=== PATIENT | male | born 1960 | race Caucasian/White ===

== ENCOUNTER → 2018-06-06 00:18 | Outpatient (CLI) | payer OTHER, SELFPAY ==
[2018-06-06 16:06] VITALS: BMI 31.4
[2018-06-07 00:39] LABS: Absolute Lymphocyte Count 2.97 X10^3/ul (0.83-4.51); Absolute Neutrophil Count 5.2 X10^3/uL (2.0-7.7); Basophil# 0.05 X10^3/uL; Basophil% 0.6 % (0-1); Eosinophil# 0.11 X10^3/uL; Eosinophils% 1.2 % (0-5); Hematocrit 50.5 % (40-54); Hemoglobin 16.8 g/dl (13.0-16.5); Lymphocyte # 2.97 X10^3/ul (4.0); Lymphocyte % 32.7 % (19-41); Mean Corp Hgb Conc 33.3 g/gl (32-36); Mean Corpuscular Hgb 29.3 pg (27.0-32.0); Mean Corpuscular Volume 88.1 fL (80-94); Mean Platelet Vol. 10.2 fl (6.2-12.0); Monocyte% 7.7 % (0-10); Neutrophil # 5.17 X10^3/uL (2.7-7.7); Platelet Count 216 K/mm3 (150-450); RBC Distribution Width CV 13.3 % (11.6-14.6); RBC Distribution Width SD 42.7 fl (35.1-43.9); Red Blood Count 5.73 M/mm3 (4.6-6.2); White Blood Count 9.1 K/mm3 (4.4-11.0)
[2018-06-07 00:47] LABS: POSITIVE COUNT NO; POSITIVE DIFFERENTIAL NO; POSITIVE MORPHOLOGY NO
[2018-06-07 00:50] LABS: ALB/GLOB Ratio 1.2 RATIO (0.9-2.4); AST(SGOT) 26 U/L (15-37); Alanine Aminotransfer ALT/SGPT 45 U/L (16-61); Albumin, Serum 4.3 g/dL (3.2-5.0); Alkaline Phosphatase 112 U/L (45-117); Anion Gap 9 (5-15); BUN 22 mg/dL (7-18); BUN/Creat Ratio 17.6 RATIO (10-20); Calcium,Total 9.1 mg/dL (8.5-10.1); Chloride 104 mmol/L (98-107); Cholesterol 192 mg/dL (200); Creatinine, Serum 1.25 mg/dL (0.70-1.30); EST Glomerular Filtration Rate 63 mL/min (>60); Est Glom Filt Rate - Afr Amer 76 mL/min (>60); Globulin 3.6 g/dL (2.2-4.2); Glucose 134 mg/dL (74-106); High Density Lipoprotein 43 mg/dL; Potassium 4.7 mmol/L (3.5-5.1); Protein, Total 7.9 g/dL (6.4-8.2); Sodium Level 135 mmol/L (136-145); Triglycerides 348 mg/dL; Very Low Density Lipoprotein 70 mg/dL (5-40)
--- OUTSIDE RECORDS SUMMARY | 2018-08-11 20:39 | XMS RPT_ITS ---
:1960 Author Organization [facility] Care Team Providers Name Role Phone Dina Townsend [employer] B[employer]NER MECHANIC-C Attending Unavailable Florian Vivas Primary Care Unavailable Dina Townsend [employer] B[employer]NER MECHANIC-C Referring Unavailable PROBLEMS PROBLEMS DATE TYPE CONDITION / CODE ATTENDING STATUS SOURCE 06/07/2018 Unknown I10 - Essential Kristian, Active [place] (primary) Dina OIL B[employer]NER MECHANIC-C Counts Include [facility] hypertension / Hospital I10(ICD-10) Repository 06/07/2018 Unknown E78.5 - Kristian, Active [place] Hyperlipidemia, Dina [employer]IL BURNER MECHANIC-C Counts Include [facility] unspecified / Hospital E78.5(ICD-10) Repository PROCEDURES PROCEDURES No Procedure Records FoundRESULTS RESULTS OFFICE VISIT Observed: 06/07/2018 Status: F Source: [place] 2:19 PM [facility] REPOSITORY [facility] [address], [place] [id number] OFFICE VISIT Date of Service: 06/06/18 MR#: [id number] Acct: [id number] Name: JORGE FUNES Rep #: [id number] : 1960 Provider: DEMOND Townsend Age/Sex: 57/M Location: [facility] [place] Status: Signed Intake Vital Signs06/06/18 Height 5 ft 7.5 in 06/06/18 Weight: 204 lb 06/06/18 Body Mass Index (BMI) 31.4 Intake Visit Reasons: RX REFILLS Allergies No Known Allergies Allergy (Unverified 06/06/18 16:03) Medications aspirin 81 mg tablet,delayed release 81 mg PO DAILY 06/06/18 [History Confirmed 06/06/18] canagliflozin 300 mg tablet 300 mg PO DAILY #90 tab 06/06/18 [Rx Confirmed 06/06/18] esomeprazole magnesium 40 mg capsule,delayed release 40 mg PO DAILY #90 cap 06/06/18 [Rx Confirmed 06/06/18] fluticasone 50 mcg/actuation nasal spray,suspension 1 spray INTRANASAL DAILY #18.2 g 06/06/18 [Rx Confirmed 06/06/18] lisinopril 20 mg tablet 20 mg PO DAILY #90 tab 06/06/18 [Rx Confirmed 06/06/18] metformin 1,000 mg tablet 1,000 mg PO BID #180 tab 06/06/18 [Rx Confirmed 06/06/18] naproxen 500 mg tablet 500 mg PO BID #180 tab 06/06/18 [Rx Confirmed 06/06/18] simvastatin 40 mg tablet 40 mg PO QHS #90 tab 06/06/18 [Rx Confirmed 06/06/18] PFSH Medical History DJD (Acute) Depression (Acute) Hyperlipidemia (Acute) Osteoarthritis (Acute) P U D (Acute) Psoriasis (Acute) Stroke (Acute) colonoscopy in 2015 neg (Acute) Hypertension (Chronic) Family History Other Bladder cancer Breast cancer Cancer Colon cancer Diabetes Hypertension Lung cancer Social History Smoking Status: Never smoker HPI HPI (General) HPI HPI: JORGE FUNES, is a 57 M who presents to the office today for medication refills. Feeling good no concerns ROS Const Constitutional: No anorexia, body ache, chills, excessive sweating, fatigue, fever(s), frequent falls, headache(s), decreased energy, malaise, night sweats, snoring, weakness, weight change, sleep problems, abnormal sleep pattern, change in appetite or other Eyes Eyes: No blurry vision, change in vision, double vision, discharge, dry eyes, bulging eyes, floaters, visual disturbances, eye pain, light sensitivity, spots in vision, tunnel vision or other ENT ENT: No headache(s), abnormal hearing, ear pain, ear discharge, ear pressure, hearing loss, tinnitus, dizziness/vertigo, balance problems, nosebleed/epistaxis, nasal congestion, nasal obstruction, nose pain, sinus pressure, sinus pain, nasal discharge, post nasal drip, facial pain, dental pain, dry mouth, difficulty swallowing, bad breath, hoarseness, lip swelling, mouth lesions, mouth pain, neck pain, sore throat, tongue swelling, throat swelling or other Resp Respiratory: No snoring, cough, change in phlegm color, chest congestion, excessive phlegm production, hemoptysis, pain on inspiration, shortness of breath, pain with cough, stridor, wheezing or other Cardio Cardiology: No excessive sweating, chest pain at rest, chest pain with exertion, leg pain with exertion, shortness of breath, dyspnea on exertion, generalized swelling, irregular heart rhythm, lightheadedness, orthopnea, radiating jaw, neck or arm pain, fast heart rate, slow heart rate, palpitations or other Gastro GI: No other, No Difficulty Swallowing, No abdominal pain, No belching, No bloating, No change in bowel habits, No change in stool character, No coffee ground emesis, No constipation, No cramping, No diarrhea, No heartburn, No feeling full early, No excessive flatus, No incontinent of stools, No Vomiting blood/hematemesis, No Blood in stool, No loose stools, No Black,tarry stools, No nausea/dyspepsia, No pain with swallowing, No vomiting, No hemorrhoids, No rectal pain Genitourinary: No urinary frequency, difficulty urinating, burning urination, painful urination, urinary urgency or blood in urine Musc Musculoskeletal: No neck pain, abnormal walking, joint pain, back pain, deformity, joint swelling, limited range of motion, loss of height, muscle cramps, muscle weakness, decreased muscle mass, body aches, numbness, radiating pain into limb, stiffness, tingling or other Skin Skin: No acne, hair loss, change in hair, nail changes, boil, change in skin color, dry skin, redness, excessive hair growth, yellowing of the skin, lesions, itching, rash, skin pain, skin ulcer, sores, skin swelling, wounds or other Breast Breast: No other Neuro Neurology: No frequent falls, headache(s), weakness, visual disturbances, abnormal hearing, abnormal walking, numbness, tingling, abnormal movements, abnormal speech, behavioral changes, confusion, unsteady gait/balance, dizziness, lack of coordination, loss of vision, memory loss, restless legs, fainting, tremor(s) or other Psych Psychiatric: No abnormal sleep pattern, No change in appetite, No behavioral changes, No confusion, No memory loss, No lack of enjoyment, No anxiety, No depression, No difficulty concentrating, No hopelessness, No irritability, No mood swings, No panic attacks, No paranoia, No Thoughts of harming yourself/Others, No hallucinations, No other Endo Endo: No excessive sweating, No fatigue, No other Aller/Imm Allergy/Immunologic: No lip swelling, tongue swelling, throat swelling, wheezing or itchy eyes Exam Const Constitutional: Yes cooperative, Yes healthy appearing Orientation: Yes alert, awake and oriented x3 HENMT Head: Yes normocephalic Ear: Yes hearing grossly normal bilaterally Neck Neck: normal visual inspection Thyroid: thyroid normal Eyes General: Yes appearance normal, both eyes and all related structures Chest Chest palpation AND inspection: Yes normal inspection of the chest Resp Effort AND Inspection: No stridor Auscultation: Yes clear to auscultation bilaterally Cardio Palpitation: Yes normal PMI Rate: Yes regular rate Rhythm: Yes regular rhythm GI Inspection: Yes normal to inspection Auscultation: Yes normal bowel sounds Rectal Exam: No hemorrhoids Musc Cervical Spine: Yes cervical ROM normal Thoracic/Lumbar Spine: Yes thoracic and lumbar spine normal to inspection Skin General: no rashes or lesions noted Lesions: Yes no lesions Extrem General: Yes normal to inspection Neuro General: Yes alert and oriented x3 Motor: No weakness Psych Appearance: Positive grossly normal Mood: Positive congruent mood Affect: Positive normal affect Results POC A1C POC A1C 8.2 % Last Edit by HERIBERTO Whitney on 06/06/18 16:22 Assessment AND Plan Problems 1. Mixed hyperlipidemia E78.2 2. Recurrent major depressive disorder, in full remission F33.42 3. Essential hypertension I10 4. Diabetes mellitus type 2, uncontrolled, without complications E11.65 Patient Instructions TAke the medications as prescribed follow up in 1 year Will call with the results of the labs drawn today Orders Orders: Medications New: Coding Level of Care Code Off vis,est,level 3 Diagnoses Mixed hyperlipidemia E78.2 Hyperlipidemia type: mixed hyperlipidemia Recurrent major depressive disorder, in full remission F33.42 Active/Remission status: in full remission Depression Type: major depressive disorder Major depression recurrence: recurrent Essential hypertension I10 Hypertension type: essential hypertension Diabetes mellitus type 2, uncontrolled, without complications E11.65 06/07/18 [id number] <Electronically signed by Dina REYESC> Date Dina Townsend [employer] BURNER MECHANIC-C CC: CBC W/DIFF, AUTOMATED Collected: 06/06/2018 Status: F Source: [place] 4:30 PM [facility] REPOSITORY TYPE CODE TESTS RESULT OUT OF RANGE REFERENCE UNITS LAB L100.1000 4.4-11.0 K/mm3 Normal WBC 9.1 LAB L100.1200 4.6-6.2 M/mm3 Normal RBC 5.73 LAB L100.1300 13.0-16.5 g/dl High HGB 16.8 LAB L100.1400 40-54 % Normal HCT 50.5 LAB L100.1500 80-94 fL Normal MCV 88.1 LAB L100.1600 27.0-32.0 pg Normal MCH 29.3 LAB L100.1700 32-36 g/gl Normal MCHC 33.3 LAB L100.1810 11.6-14.6 % Normal RDW CV 13.3 LAB L100.1820 35.1-43.9 fl Normal RDW SD 42.7 LAB L100.1900 150-450 K/mm3 Normal PLT 216 LAB L100.2000 6.2-12.0 fl Normal MPV 10.2 LAB L100.2100 47-70 % Normal NEUT% 57.0 LAB L100.2200 19-41 % Normal LY% 32.7 LAB L100.2300 0-10 % Normal MONO% 7.7 LAB L100.2400 0-5 % Normal EO% 1.2 LAB L100.2500 0-1 % Normal BASO% 0.6 LAB L100.2550 0.0-0.9 % Normal IM GRAN % 0.800 Result Comment: IG% - Immature Granulocytes (promyelocytes, myelocytes and metamyelocytes) > 1% indicates that a LEFT SHIFT is Present. LAB L100.2620 2.0-7.7 X10 3/uL Normal Absolute Neut 5.2 LAB L100.2720 0.83-4.51 X10 3/ul Normal Absolute Lymph 2.97 Performed By: #### L100.0100 #### [facility] [address] [place], [address] COMPREHENSIVE METABOLIC Collected: 06/06/2018 Status: F Source: [place]ANN 4:30 PM [facility] REPOSITORY TYPE CODE TESTS RESULT OUT OF RANGE REFERENCE UNITS LAB L501.0100 74-106 mg/dL High GLU 134 Result Comment: Fasting Glucose result greater than or equal to 126 mg/dL suggests DIABETES MELLITUS per A.D.A. criteria. Please note revised GLUCOSE reference range effective 2017. LAB L501.1000 7-18 mg/dL High BUN 22 LAB L501.1100 0.70-1.30 mg/dL Normal CREAT,SERUM 1.25 Result Comment: The validity of the calculated GFR AND GFRAA in patients over 70 years has not been determined. Clinical correlation is essential. LAB L501.1110 >60 mL/min Normal EST GFR 63 Result Comment: Non- GFR Calc LAB L501.1115 >60 mL/min Normal EST GFR - AA 76 Result Comment: GFR Calc LAB L501.1300 10-20 RATIO Normal BUN/CRE 17.6 LAB L501.1500 6.4-8.2 g/dL T Normal PROT 7.9 LAB L501.1800 3.2-5.0 g/dL Normal ALB 4.3 LAB L501.1950 2.2-4.2 g/dL Normal GLOB 3.6 LAB L501.2000 0.9-2.4 RATIO Normal A/G 1.2 LAB L501.2200 8.5-10.1 mg/dL CA Normal 9.1 LAB L501.4100 15-37 U/L Normal AST 26 LAB L501.4305 45-117 U/L Normal ALK P 112 LAB L501.4405 16-61 U/L Normal ALT 45 LAB L501.4600 0.20-1.00 mg/dL T Normal BILI 0.30 LAB L501.5300 136-145 mmol/L Low NA 135 LAB L501.5600 3.5-5.1 mmol/L K Normal 4.7 LAB L501.5900 98-107 mmol/L CL Normal 104 LAB L501.6100 21.0-32.0 mmol/L Normal CO2 22.0 LAB L501.6200 5-15 Normal GAP 9 Performed By: #### L500.4050, L500.4100 #### [facility] [address] [place], [address] LIPID PROFILE Collected: 06/06/2018 Status: F Source: [place] 4:30 PM [facility] REPOSITORY TYPE CODE TESTS RESULT OUT OF RANGE REFERENCE UNITS LAB L501.4900 200 mg/dL Normal CHOL 192 Result Comment: <200 mg/dL Desirable 200-240 mg/dL Borderline >240 mg/dL High Risk LAB L501.5000 mg/dL High TRIG 348 Result Comment: The drugs N-Acetylcysteine and Metamizole may falsely depress this assay. Serum Triglycerides Reference Interval Normal <150 mg/dL Borderline high 150 - 199 mg/dL High 200 - 499 mg/dL Very High > or = 500 mg/dL LAB L501.6400 mg/dL Normal HDL 43 Result Comment: The drugs N-Acetylcysteine and Metamizole may falsely depress this assay. Reference Range HDL <40 mg/dL Low HDL Cholesterol HDL >or= 60 mg/dL High HDL Cholesterol LAB L501.6500 0-130 mg/dL Normal LDL 79 LAB L501.6600 5-40 mg/dL High VLDL 70 Performed By: #### L500.4050, L500.4100 #### [facility] [address] [place], [address] ALLERGIES ALLERGIES DATE TYPE / CODE NAME / CODE REACTION SEVERITY SOURCE 06/06/2018 Drug No Known Unknown [facility] Allergy/4160 Allergies/F00 Hospital 72923(SNOMED [id number](RXNOR Repository CT) M) ENCOUNTERS ENCOUNTERS ADMIT/DISCHARGE ACCOUNT ADMITTING ENCOUNTER LOCATION SOURCE NUMBER CLASS 06/06/2018 [id number] Ambulatory [address] ing:LABSPEC Repository PAYERS PAYERS ENCOUNTER GUARANTOR PAYER SUBSCRIBER SOURCE 06/06/2018 PATEL A Primary PATEL A [place] [id number] Insurance:Winnie JAY: [facility] [place]: [id number] [id number] Repository [id number]: (330) Date:4627-21-05[phone] () [id number]: 06/06/2018 Secondary SOFI S [place] Insurance:[facility] ED: [place] [id number] Number: [id number] [facility] [id number] Repository Date: [address] [id number]: 06/06/2018 Tertiary NOT GIVENUNK [place] Insurance:SELF PAY [facility] Number: Effective Repository Date:2018-06-06
== END ==
PROVIDERS: Family Provider Family Medicine; PCP Family Medicine; Referring Provider Nurse Practitioner; Visit Provider Nurse Practitioner
DX: E11.65 Type 2 diabetes mellitus with hyperglycemia (principal); E78.5 Hyperlipidemia, unspecified; I10 Essential (primary) hypertension
CPT/HCPCS: 80053; 80061; 85025

== ENCOUNTER → 2019-06-06 21:40 | Outpatient (CLI) | payer OTHER, SELFPAY ==
[2019-06-06 17:30] VITALS: BMI 30.2
[2019-06-06 22:20] LABS: Absolute Neutrophil Count 4.7 X10^3/uL (2.0-7.7); Basophil# 0.08 X10^3/uL; Eosinophil# 0.14 X10^3/uL; Eosinophils% 1.7 % (0-5); Hematocrit 47.7 % (40-54); Hemoglobin 15.6 g/dL (13.0-16.5); Lymphocyte % 31.6 % (19-41); Mean Corp Hgb Conc 32.7 g/dL (32-36); Mean Corpuscular Volume 88.7 fL (80-94); Mean Platelet Vol. 10.1 fl (6.2-12.0); Monocyte# 0.62 X10^3/uL; Monocyte% 7.5 % (0-10); NRBC Flagged by Analyzer 0 % (0-5); Neutrophil # 4.74 X10^3/uL (2.7-7.7); Neutrophil % 57.5 % (47-70); Platelet Count 235 K/mm3 (150-450); RBC Distribution Width CV 13.5 % (11.6-14.6); RBC Distribution Width SD 43.4 fl (35.1-43.9); Red Blood Count 5.38 M/mm3 (4.6-6.2); White Blood Count 8.2 K/mm3 (4.4-11.0)
[2019-06-06 22:24] LABS: ALB/GLOB Ratio 1.4 RATIO (0.9-2.4); AST(SGOT) 19 U/L (15-37); Alanine Aminotransfer ALT/SGPT 42 U/L (16-61); Albumin, Serum 4.4 g/dL (3.2-5.0); Alkaline Phosphatase 98 U/L (45-117); Anion Gap 5 (5-15); BUN 23 mg/dL (7-18); BUN/Creat Ratio 19.3 RATIO (10-20); Chloride 106 mmol/L (98-107); Cholesterol 138 mg/dL (200); Creatinine, Serum 1.19 mg/dL (0.70-1.30); EST Glomerular Filtration Rate 67 mL/min (>60); Est Glom Filt Rate - Afr Amer 81 mL/min (>60); Globulin 3.2 g/dL (2.2-4.2); Glucose 132 mg/dL (74-106); High Density Lipoprotein 43 mg/dL; PSA,Total - Annual Screen 2.46 ng/mL (0.00-4.00); Potassium 5.2 mmol/L (3.5-5.1); Protein, Total 7.6 g/dL (6.4-8.2); Sodium Level 138 mmol/L (136-145); Triglycerides 202 mg/dL; Very Low Density Lipoprotein 40 mg/dL (5-40)
== END ==
PROVIDERS: Referring Provider Nurse Practitioner; Visit Provider Nurse Practitioner
DX: I10 Essential (primary) hypertension (principal); E11.65 Type 2 diabetes mellitus with hyperglycemia; E78.1 Pure hyperglyceridemia; R35.0 Frequency of micturition
CPT/HCPCS: 80053; 80061; 84153; 85025; G0103

== ENCOUNTER → 2020-06-05 22:02 | Outpatient (CLI) | payer OTHER, SELFPAY ==
[2020-06-05 16:56] VITALS: BMI 31.3
[2020-06-05 22:11] LABS: Absolute Lymphocyte Count 2.74 X10^3/uL (0.83-4.51); Absolute Neutrophil Count 4.5 X10^3/uL (2.0-7.7); Basophil# 0.08 X10^3/uL; Eosinophils% 1.2 % (0-5); Hematocrit 47.3 % (40-54); Hemoglobin 15.4 g/dL (13.0-16.5); Lymphocyte # 2.74 X10^3/ul (4.0); Lymphocyte % 33.5 % (19-41); Mean Corp Hgb Conc 32.6 g/dL (32-36); Mean Corpuscular Hgb 29.1 pg (27.0-32.0); Mean Corpuscular Volume 89.4 fL (80-94); Mean Platelet Vol. 9.6 fl (6.2-12.0); Monocyte# 0.65 X10^3/uL; NRBC Flagged by Analyzer 0 % (0-5); Neutrophil # 4.51 X10^3/uL (2.7-7.7); Neutrophil % 55.2 % (47-70); Platelet Count 262 K/mm3 (150-450); RBC Distribution Width CV 13.2 % (11.6-14.6); RBC Distribution Width SD 43.6 fl (35.1-43.9); Red Blood Count 5.29 M/mm3 (4.6-6.2); White Blood Count 8.2 K/mm3 (4.4-11.0)
[2020-06-05 22:36] LABS: ALB/GLOB Ratio 1.4 RATIO (0.9-2.4); AST(SGOT) 20 U/L (15-37); Alanine Aminotransfer ALT/SGPT 43 U/L (16-61); Albumin, Serum 4.2 g/dL (3.2-5.0); Alkaline Phosphatase 128 U/L (45-117); Anion Gap 6 (5-15); BUN 29 mg/dL (7-18); BUN/Creat Ratio 17.6 RATIO (10-20); Calcium,Total 9.2 mg/dL (8.5-10.1); Chloride 104 mmol/L (98-107); Cholesterol 178 mg/dL (200); Creatinine, Serum 1.65 mg/dL (0.70-1.30); EST Glomerular Filtration Rate 46 mL/min (>60); Est Glom Filt Rate - Afr Amer 55 mL/min (>60); Glucose 183 mg/dL (74-106); High Density Lipoprotein 41 mg/dL; Potassium 5.2 mmol/L (3.5-5.1); Protein, Total 7.2 g/dL (6.4-8.2); Sodium Level 135 mmol/L (136-145); Triglycerides 372 mg/dL; Very Low Density Lipoprotein 74 mg/dL (5-40)
[2020-06-05 22:42] LABS: Hemoglobin A1c 7.7 % (3.8-5.6)
[2020-06-09 16:09] LABS: Vitamin D 1,25-Dihydroxy 14.8 pg/mL (19.9-79.3)
== END ==
PROVIDERS: Referring Provider Nurse Practitioner; Visit Provider Nurse Practitioner
DX: I10 Essential (primary) hypertension (principal); E78.5 Hyperlipidemia, unspecified; E11.65 Type 2 diabetes mellitus with hyperglycemia; E55.9 Vitamin D deficiency, unspecified
CPT/HCPCS: 80053; 80061; 82652; 83036; 85025

== ENCOUNTER → 2020-06-18 21:38 | Outpatient (CLI) | payer OTHER, SELFPAY ==
[2020-06-18 22:02] LABS: PSA,Total - Annual Screen 2.67 ng/mL (0.00-4.00)
== END ==
PROVIDERS: Referring Provider Nurse Practitioner; Visit Provider Nurse Practitioner
DX: N52.9 Male erectile dysfunction, unspecified (principal)
CPT/HCPCS: 84153; G0103

== ENCOUNTER → 2021-01-16 22:03 | Outpatient (CLI) | payer OTHER, SELFPAY ==
[2021-01-16 22:35] LABS: AST(SGOT) 19 U/L (15-37); Alanine Aminotransfer ALT/SGPT 38 U/L (16-61); Albumin, Serum 3.6 g/dL (3.2-5.0); Alkaline Phosphatase 150 U/L (45-117); Anion Gap 7 (5-15); BUN 16 mg/dL (7-18); BUN/Creat Ratio 11.9 RATIO (10-20); Calcium,Total 8.8 mg/dL (8.5-10.1); Chloride 103 mmol/L (98-107); Creatinine, Serum 1.34 mg/dL (0.70-1.30); EST Glomerular Filtration Rate 58 mL/min (>60); Est Glom Filt Rate - Afr Amer 70 mL/min (>60); Globulin 3.6 g/dL (2.2-4.2); Glucose 199 mg/dL (74-106); Protein, Total 7.2 g/dL (6.4-8.2); Sodium Level 134 mmol/L (136-145)
[2021-01-16 22:41] LABS: Hemoglobin A1c 8.4 % (3.8-5.6)
== END ==
PROVIDERS: PCP Nurse Practitioner; Referring Provider Nurse Practitioner; Visit Provider Nurse Practitioner
DX: I10 Essential (primary) hypertension (principal); R79.89 Other specified abnormal findings of blood chemistry; E11.65 Type 2 diabetes mellitus with hyperglycemia
CPT/HCPCS: 80053; 83036

== ENCOUNTER 2021-06-16 21:29 | Outpatient (CLI) | payer OTHER, SELFPAY ==
[2021-06-16 21:41] LABS: Absolute Lymphocyte Count 2.18 X10^3/uL (0.83-4.51); Basophil# 0.07 X10^3/uL; Eosinophil# 0.05 X10^3/uL; Eosinophils% 0.7 % (0-5); Hematocrit 49.8 % (40-54); Hemoglobin 16.7 g/dL (13.0-16.5); Lymphocyte # 2.18 X10^3/ul (0.83-4.51); Mean Corp Hgb Conc 33.5 g/dL (32-36); Mean Corpuscular Hgb 28.7 pg (27.0-32.0); Mean Corpuscular Volume 85.7 fL (80-94); Mean Platelet Vol. 9.6 fl (6.2-12.0); Monocyte# 0.48 X10^3/uL; NRBC Flagged by Analyzer 0 % (0-5); Neutrophil # 3.97 X10^3/uL (2.7-7.7); Neutrophil % 58.3 % (47-70); Platelet Count 219 K/mm3 (150-450); RBC Distribution Width CV 13.5 % (11.6-14.6); Red Blood Count 5.81 M/mm3 (4.6-6.2); White Blood Count 6.8 K/mm3 (4.4-11.0)
[2021-06-16 21:54] LABS: ALB/GLOB Ratio 1.1 RATIO (0.9-2.4); AST(SGOT) 22 U/L (15-37); Alanine Aminotransfer ALT/SGPT 51 U/L (16-61); Albumin, Serum 3.9 g/dL (3.2-5.0); Alkaline Phosphatase 128 U/L (45-117); Anion Gap 9 (5-15); BUN 23 mg/dL (7-18); Calcium,Total 9.4 mg/dL (8.5-10.1); Chloride 102 mmol/L (98-107); Cholesterol 210 mg/dL (200); Creatinine, Serum 1.44 mg/dL (0.70-1.30); EST Glomerular Filtration Rate 53 mL/min (>60); Est Glom Filt Rate - Afr Amer 64 mL/min (>60); Globulin 3.5 g/dL (2.2-4.2); Glucose 189 mg/dL (74-106); High Density Lipoprotein 41 mg/dL; Potassium 4.3 mmol/L (3.5-5.1); Protein, Total 7.4 g/dL (6.4-8.2); Sodium Level 138 mmol/L (136-145); Triglycerides 521 mg/dL
[2021-06-22 21:39] LABS: Vitamin D 1,25-Dihydroxy 47.6 pg/mL (19.9-79.3)
== END 2021-06-16 23:59 | disposition short-term general hospital (02) ==
PROVIDERS: Referring Provider Nurse Practitioner; Visit Provider Nurse Practitioner
DX: I10 Essential (primary) hypertension (principal); E78.2 Mixed hyperlipidemia
CPT/HCPCS: 80053; 80061; 82652; 85025

== ENCOUNTER → 2022-01-20 | Outpatient (CLI) | payer OTHER, SELFPAY ==
[2022-01-20 22:37] LABS: ALB/GLOB Ratio 1.1 RATIO (0.9-2.4); AST(SGOT) 22 U/L (15-37); Alanine Aminotransfer ALT/SGPT 49 U/L (16-61); Albumin, Serum 3.9 g/dL (3.2-5.0); Alkaline Phosphatase 147 U/L (45-117); Anion Gap 6 (5-15); BUN 18 mg/dL (7-18); BUN/Creat Ratio 12.7 RATIO (10-20); Calcium,Total 9.8 mg/dL (8.5-10.1); Chloride 102 mmol/L (98-107); Cholesterol 222 mg/dL (200); Creatinine, Serum 1.42 mg/dL (0.70-1.30); EST Glomerular Filtration Rate 54 mL/min (>60); Est Glom Filt Rate - Afr Amer 65 mL/min (>60); Globulin 3.5 g/dL (2.2-4.2); Glucose 250 mg/dL (74-106); High Density Lipoprotein 40 mg/dL; Potassium 5.1 mmol/L (3.5-5.1); Protein, Total 7.4 g/dL (6.4-8.2); Sodium Level 137 mmol/L (136-145); Triglycerides 673 mg/dL
[2022-01-30 22:06] LABS: Testosterone, Free 7.22 ng/dL (5.00-21.00)
[2022-01-31 11:47] LABS: Testosterone, % Free 3.44 % (1.50-4.20); Testosterone, Total 210 ng/dL (264-916)
== END | disposition home or self-care (01) ==
PROVIDERS: Visit Provider Nurse Practitioner
DX: R33.9 Retention of urine, unspecified (principal); E78.1 Pure hyperglyceridemia; E78.5 Hyperlipidemia, unspecified; N52.9 Male erectile dysfunction, unspecified
CPT/HCPCS: 80053; 80061; 84402; 84403; 87086; 87088

== ENCOUNTER → 2023-05-10 | Outpatient (CLI) | payer MEDICARE, OTHER, SELFPAY ==
[2023-05-10 20:05] LABS: Absolute Lymphocyte Count 2.61 X10^3/uL (0.83-4.51); Absolute Neutrophil Count 6.2 X10^3/uL (2.0-7.7); Eosinophil# 0.09 X10^3/uL; Eosinophils% 0.9 % (0-5); Hematocrit 46.2 % (40-54); Hemoglobin 14.8 g/dL (13.0-16.5); Lymphocyte # 2.61 X10^3/ul (0.83-4.51); Lymphocyte % 26.3 % (19-41); Mean Corpuscular Volume 87.3 fL (80-94); Mean Platelet Vol. 9.5 fl (6.2-12.0); Monocyte# 0.68 X10^3/uL; Monocyte% 6.9 % (0-10); NRBC Flagged by Analyzer 0 % (0-5); Neutrophil # 6.22 X10^3/uL (2.7-7.7); Neutrophil % 62.8 % (47-70); Platelet Count 302 K/mm3 (150-450); RBC Distribution Width CV 13.1 % (11.6-14.6); RBC Distribution Width SD 41.5 fl (35.1-43.9); Red Blood Count 5.29 M/mm3 (4.6-6.2); White Blood Count 9.9 K/mm3 (4.4-11.0)
[2023-05-10 20:20] LABS: ALB/GLOB Ratio 1.1 RATIO (0.9-2.4); AST(SGOT) 17 U/L (15-37); Alanine Aminotransfer ALT/SGPT 29 U/L (16-61); Albumin, Serum 3.8 g/dL (3.2-5.0); Alkaline Phosphatase 113 U/L (45-117); Anion Gap 8 (5-15); BUN 22 mg/dL (7-18); BUN/Creat Ratio 16.5 RATIO (10-20); Calcium,Total 9.4 mg/dL (8.5-10.1); Chloride 104 mmol/L (98-107); Cholesterol 163 mg/dL (200); Creatinine, Serum 1.33 mg/dL (0.70-1.30); EST Glomerular Filtration Rate 58 mL/min (>60); Est Glom Filt Rate - Afr Amer 70 mL/min (>60); Globulin 3.6 g/dL (2.2-4.2); Glucose 166 mg/dL (74-106); High Density Lipoprotein 44 mg/dL; PSA,Total - Annual Screen 3.53 ng/mL (0.00-4.00); Potassium 4.9 mmol/L (3.5-5.1); Protein, Total 7.4 g/dL (6.4-8.2); Sodium Level 140 mmol/L (136-145); Triglycerides 246 mg/dL; Very Low Density Lipoprotein 49 mg/dL (5-40)
[2023-05-10 20:28] LABS: Hemoglobin A1c 9.3 % (3.8-5.6)
== END | disposition home or self-care (01) ==
PROVIDERS: Visit Provider Nurse Practitioner
DX: I10 Essential (primary) hypertension (principal); E11.65 Type 2 diabetes mellitus with hyperglycemia; E78.5 Hyperlipidemia, unspecified; E78.1 Pure hyperglyceridemia; Z12.5 Encounter for screening for malignant neoplasm of prostate
CPT/HCPCS: 80053; 80061; 83036; 84153; 85025; G0103

== ENCOUNTER → 2024-03-20 | Outpatient (CLI) | payer OTHER, BC, SELFPAY ==
--- OUTSIDE RECORDS SUMMARY | 2024-03-20 23:25 | XMS RPT_ITS | CCD ---
Author Organization [facility] ion [facility] Care Team Providers [place] [facility] Name Role Phone Mercedes Arellano Primary Care Provider Librado Patel MD Unavailable Mercedes Arellano Primary Care Provider VANDANA DIAZ Referring Unavailable MERCEDES ARELLANO Primary Care Unavailable ANTONIETTA ROBLES Admitting Unavailable ANTONIETTA ROBLES Attending Unavailable MERCEDES ARELLANO Primary Care Unavailable MERCEDES ARELLANO Primary Care Unavailable QUIN COOPER Attending Unava ilable MERCEDES ARELLANO Primary Care Unavailable Allergies Allergy Classification Reported Allergen(s) Allergy Type Date of Onset Reaction(s) Facility (6 sources) Other Propensity to adverse reactions 5 Hives, Swelling [place], [place] (1 source) Bee/Wasp/Ant venom; Translations: [BEE STINGS] allergy to substance 0 [facility] Work Phone: (1 source) BEE STING; Translations: [BEE STING] Propensity to adverse reactions (disorder) 0 [facility] Other [place] [facility] NEGATED: Highlighted row has been ruled out! (1 source) Other Propensity to adverse reactions 5 Hives, Swelling [facility] Medications Current Medications Medication Drug Class(es) Dates Sig (Normalized) Sig (Original) acetaminophen 325 mg / HYDROcodone bitartrate 5 mg oral tablet (1 source) Opioid Agonist Start: 09-14-2021 End: 09-19-2021 take 1 tablet by mouth every six hours as needed for pain HYDROcodone-acetam inophen (NORCO) 5-325 MG per tablet Indications: Ventral hernia without obstruction or gangrene Take 1 tablet by mouth every 6 hours as needed for Pain for up to 5 days. 15 tablet 0 09/14/2021 09/19/2021 Active calcium chloride 0.0014 meq/ml / potassium chloride 0.004 meq/ml / sodium chloride 0.103 meq/ml / sodium lactate 0.028 meq/ml injectable solution (2 sources) Start: 09-14-2021 IntraVENous, at 50 mL/hr, CONTINUOUS, Starting on Tue09/14/21 at 1330, Post-op Start: 09-14-2021 End: 09-14-2021 lactated ringers infusion 1 ml HYDROmorphone hydrochloride 1 mg/ml cartridge (1 source) Opioid Agonist Start: 09-14-2021 HYDROmorphone (DILAUDID) injection 0.5 mg labetalol (NORMODYNE;TRANDATE ) injection 10 mg (1 source) Start: 09-14-2021 labetalol (NORMODYNE;TRANDAT E) injection 10 mg 2 ml metoclopramide 5 mg/ml prefilled syringe (1 source) Dopamine-2 Receptor Antagonist Start: 09-14-2021 End: 09-14-2021 metoclopramide (REGLAN) injection 10 mg 1 ml morphine sulfate 2 mg/ml cartridge (1 source) Opioid Agonist Start: 09-14-2021 take 1 mg by mouth every three hours as needed 1 mg, IntraVENous, EVERY 3 HOURS PRN, Starting on Tue09/14/21 at 1307, Until Discontinued, Pain Severe (7-10) If oral and IV narcotics ordered, use oral first and only use IV if oral is ineffective or cannot take oral. D o Not give oral and IV within 1 hour of each other unless specifically ordered. Post-op 2 ml ondansetron 2 mg/ml injection (1 source) Serotonin-3 Receptor Antagonist Start: 09-14-2021 End: 09-14-2021 ondansetron (ZOFRAN) injection 4 mg oxyCODONE hydrochloride 5 mg oral tablet (1 source) Opioid Agonist Start: 09-14-2021 End: 09-14-2021 oxyCODONE (ROXICODONE) immediate release tablet 5 mg Promethazine (1 source) Phenothiazine Start: 04-25-2022 promethazine (PHENERGAN) tablet 12.5 mg 5 ml sodium chloride 9 mg/ml injection (6 sources) Start: 09-14-2021 take 1 dose intravenously twice daily 5-40 mL, IntraVENous, EVERY 12 HOURS SCHEDULED (2 times per day), First dose on Tue09/14/21 at 2100, Until Discontinued For Line Patency: Peripheral IV = 5 mL; Midline or Central Line = 10 mL/lumen.&nbsp ; If following IV push medication, administer flush at same rate as the IV push. Flush volume is determined by type of infusion therapy being given. For non-viscous solutions use: Peripher al IV = 5 mL Midline or Central Line = 10 mL/lumen &nbs p;For viscous solutions (i.e. blood components, parenteral nutrition, contrast media, or after obtaining blood sample) use: Peripher al IV = 10 mL Midline or Central Line = 20 mL/lumen Post-op Start: 09-14-2021 IntraVENous, a t 5-250 mL/hr, PRN, if patient receiving piggyback infusions and maintenance fluids are not ordered OR KVO fluids to protect IV site / prevent frequent line interruptions/ long duration, Starting on Tue09/14/21 at 1307 For piggyback infusion, administer at same rate as piggyback for a total of 25 mL. Enter 25 mL into dose field and piggyback rate into rate field of order. If piggyback is infusing at a rate less than 100 mL/hr, enter 25 mL into dose field and 100 mL/hr into rate field of order. For KVO fluids, enter rate of 20 mL/hr or less into rate field of order. Post-op Start: 09-14-2021 take 5-40 mL intrave nously once as needed 5-40 mL, IntraVENous, PRN, Starting on Tue09/14/21 at 1307, Until Discontinued, Line Care, After every IV line use For Line Patency: Peripheral IV = 5 mL; Midline or Central Line = 10 mL/lumen. If following IV push medication, administer flush at same rate as the IV push. Flush volume is determined by type of infusion therapy being given. For non-viscous solutions use: Peripheral IV = 5 mL Midline or Central Line = 10 mL/lumen For viscous solutions (i.e. blood components, parenteral nutrition, contrast media, or after obtaining blood sample) use: Peripheral IV = 10 mL Midline or Central Line = 20 mL/lumen Post-op Start: 09-14-2021 0.9 % sodium c hloride infusion Start: 09-14-2021 sodium chlorid e flush 0.9 % injection 5-40 mL Completed/Discontinued Medications Medication Drug Class(es) Dates Sig (Normalized) Sig (Original) ALPRAZolam 0.5 mg oral tablet (7 sources) Benzodiazepine Start: 12-24-2014 take 1 tablet by mouth once daily as needed for sleep ALPRAZolam (XANAX) 0.5 MG tablet Take 1 tablet by mouth nightly as needed for Sleep 90 tablet 1 12/24/2014 Suspended 24 hr buPROPion hydrochloride 150 mg extended release oral tablet (7 sources) Aminoketone Start: 09-02-2015 take 1 tablet by mouth once daily in the morning buPROPion (WELLBUTRIN XL) 150 MG XL tablet Indications: Depression Take 1 tablet by mouth every morning 90 tablet 1 09/02/2015 Suspended canagliflozin 300 mg oral tablet (2 sources) Sodium-Glucose Cotransporter 2 Inhibitor Start: 06-05-2020 take 1 tablet by mouth once daily INVOKANA 300 MG TABS tablet TAKE 1 TABLET BY MOUTH EVERY DAY 0 06/05/2020 Suspended Start: 04-23-2020 INVOKANA 300 M G TABS one tablet a day CANAGLIFLOZIN [id number] Librado Patel MD cyclobenzaprine hydrochloride 10 mg oral tablet (1 source) Muscle Relaxant Start: 04-23-2020 CYCLOBENZAPRINE HCL 10 MG TABS one tablet three times a day CYCLOBENZAPRINE HCL [id number] Librado Patel MD esomeprazole 40 mg delayed release oral capsule (7 sources) Proton Pump Inhibitor Start: 09-02-2015 take 1 capsule by mouth once daily before breakfast esomeprazole (NEXIUM) 40 MG capsule Indications: Gastroesophageal reflux disease with esophagitis Take 1 capsule by mouth every morning (before breakfast) 90 capsule 1 09/02/2015 Suspended 2 ml fentaNYL 0.05 mg/ml injection (1 source) Opioid Agonist Start: 09-14-2021 End: 09-14-2021 fentaNYL (SUBLIMAZE) injection 25 mcg fluticasone propionate 0.05 mg/actuat metered dose nasal spray (7 sources) Corticosteroid Start: 09-02-2015 fluticasone (FLONASE) 50 MCG/ACT nasal spray Indications: Sinus headache 1 spray by Nasal route daily 1 Bottle 2 09/02/2015 Suspended hydrOXYzine hydrochloride 25 mg oral tablet (7 sources) Antihistamine take 1 tablet by mouth three times daily as needed hydrOXYzine (ATARAX) 25 MG tablet Take 25 mg by mouth 3 times daily as needed for Itching 0 Suspended 1 ml ketorolac tromethamine 30 mg/ml cartridge (1 source) Nonsteroidal Anti-inflammatory Drug, Cyclooxygenase Inhibitor Start: 09-14-2021 End: 09-14-2021 ketorolac (TORADOL) injection 30 mg lansoprazole 30 mg disintegrating oral tablet (1 source) Proton Pump Inhibitor Start: 04-23-2020 LANSOPRAZOLE 30 MG TBDD one tablet twice a day LANSOPRAZOLE [id number] Librado Patel MD lisinopril 20 mg oral tablet (8 sources) Angiotensin Converting Enzyme Inhibitor Start: 04-23-2020 LISINOPRIL 20 MG TABS one tablet a day LISINOPRIL [id number] Librado Patel MD Start: 09-02-2015 take 1 tablet by stacia th twice daily lisinopril (PRINIVIL;ZESTRIL) 20 MG tablet Take 1 tablet by mouth 2 times daily 90 tablet 1 09/02/2015 Suspended metFORMIN hydrochloride 1000 mg oral tablet (8 sources) Biguanide Start: 04-23-2020 METFORMIN HCL 1000 MG TABS twice a day METFORMIN HCL [id number] Librado Patel MD Start: 09-02-2015 take 1 tablet by stacia th twice daily at mealtime metFORMIN (GLUCOPHAGE) 500 MG tablet Indications: Type 2 diabetes mellitus without complication (HCC) Take 1 tablet by mouth 2 times daily (with meals) 180 tablet 1 09/02/2015 Suspended naproxen 500 mg delayed release oral tablet (8 sources) Nonsteroidal Anti-inflammatory Drug Start: 04-23-2020 EC-NAPROXEN 500 M G TBEC one tablet twice a day NAPROXEN [id number] Librado Patel MD Start: 09-02-2015 take 1 tablet by stacia th twice daily at mealtime naproxen (NAPROSYN) 500 MG tablet Indications: Low back pain without sciatica, unspecified back pain laterality Take 1 tablet by mouth 2 times daily (with meals) 180 tablet 1 09/02/2015 Suspended pioglitazone 30 mg oral tablet (7 sources) Peroxisome Proliferator Receptor alpha Agonist, Peroxisome Proliferator Receptor gamma Agonist, Thiazolidinedione Start: 09-02-2015 take 1 tablet by mouth once daily pioglitazone (ACTOS) 30 MG tablet Indications: Type 2 diabetes mellitus without complication (HCC) Take 1 tablet by mouth daily 90 tablet 1 09/02/2015 Suspended simvastatin 40 mg oral tablet (8 sources) HMG-CoA Reductase Inhibitor Start: 04-23-2020 SIMVASTATIN 40 MG TABS one tablet a day SIMVASTATIN [id number] Librado Patel MD Start: 09-02-2015 take 1 tablet by stacia th once daily simvastatin (ZOCOR) 20 MG tablet Indications: Hyperlipidemia, unspecified hyperlipidemia Take 1 tablet by mouth nightly 90 tablet 1 09/02/2015 Suspended traMADol hydrochloride 50 mg oral tablet (1 source) Opioid Agonist Start: 09-14-2021 take 50 mg by mouth every six hours as needed 50 mg, Oral, EVERY 6 HOURS PRN, Starting on Tue09/14/21 at 1307, Until Discontinued, Pain Mild (1-3), Pain Moderate (4-6), Pain Severe (7-10), Post-op Problems Active Problems Problem Classification Problem Date Documented Date Episodic/Chronic Abdominal hernia (2 sources) Hernia of anterior abdominal wall; Translations: [Ventral hernia without obstruction or gangrene] Onset: 07-24-2021 Episodic Anxiety disorders (7 sources) Anxiety; Translations: [Anxiety disorder, unspecified] Onset: 11-21-2014 11-21-2014 Chronic Diabetes mellitus with complications (1 source) Type 2 diabetes mellitus with hypoglycemia with coma; Translations: [Insulin coma (HCC)] Onset: 05-22-2022 Chronic Diabetes mellitus without complication (7 sources) Diabetes mellitus; Translations: [Type 2 diabetes mellitus without complications] Onset: 11-21-2014 11-21-2014 Chronic Disorders of lipid metabolism (8 sources) Hyperlipidemia; Translations: [Hyperlipidemia, unspecified] Onset: 11-21-2014 11-21-2014 Chronic Esophageal disorders (7 sources) Gastroesophageal reflux disease; Translations: [Gastro-esophageal reflux disease without esophagitis] Onset: 11-21-2014 11-21-2014 Chronic Essential hypertension (8 sources) Hypertensive disorder; Translations: [Essential (primary) hypertension] Onset: 11-21-2014 11-21-2014 Chronic Mood disorders (7 sources) Depressive disorder; Translations: [Depression] Onset: 11-21-2014 11-21-2014 Chronic Other male genital disorders (1 source) Male erectile dysfunction, unspecified; Translations: [Impotence of organic origin] Onset: 05-22-2022 Chronic Other nervous system disorders (1 source) Lesion of ulnar nerve; Translations: [Lesion of ulnar nerve, bilateral upper limbs] Onset: 05-02-2020 05-02-2020 Chronic Other nervous system disorders (1 source) Bilateral carpal tunnel syndrome; Translations: [Carpal tunnel syndrome, bilateral upper limbs] Onset: 07-11-2020 07-11-2020 Chronic Other nervous system disorders (1 source) Entrapment of right ulnar nerve; Translations: [Lesion of ulnar nerve, right upper limb] Onset: 07-11-2020 07-11-2020 Chronic Other nervous system disorders (1 source) Entrapment of left ulnar nerve; Translations: [Lesion of ulnar nerve, left upper limb] Onset: 07-11-2020 07-11-2020 Chronic Past or Other Problems Problem Classification Problem Date Documented Da te Episodic/Chronic E Codes: Natural/environment (1 source) Overexertion from repetitive movements, subsequent encounter; Translations: [Other specified aftercare] Onset: 05-02-2020 05-02-2020 Episodic Poisoning by nonmedicinal substances (1 source) Toxic effect of venom of bees, accidental (unintentional), initial encounter; Translations: [Bee sting reaction, accidental or unintentional, initial encounter] Onset: 01-05-2022 Episodic Spondylosis; intervertebral disc disorders; other back problems (8 sources) Low back pain; Translations: [Lumbar radiculopathy] Onset: 11-21-2014 11-21-2014 Episodic Sprains and strains (1 source) Strain of neck muscle; Translations: [Strain of muscle, fascia and tendon at neck level, subsequent encounter] Onset: 05-02-2020 05-02-2020 Episodic Unclassified (1 source) Problem Results Test Name Value Interpretation Reference Range Facility CBC W Auto Differential pane l (Bld)on 05-22-2022 Basophils (Bld) [#/Vol] 0.03 10*3/uL Normal <0.11 [facility] Comment on above: Order Comment: Speci men Type: BLOOD SPECIMEN Ordering Facility: [facility] Address: [address] [place] [address] Performed By: #### 5 7021-8 #### [facility] [place] [facility] CLIA [id number] [address] Basophils/100 WBC (Bld) 0.4 % Normal [facility] Comment on above: Order Comment: Speci men Type: BLOOD SPECIMEN Ordering Facility: [facility] Address: [address] [place] [address] Performed By: #### 5 7021-8 #### [facility] [place] [facility] CLIA [id number] [address] [place] [address] [place] Differential cell count method Nom (Bld) Auto Normal [facility] Comment on above: Order Comment: Speci men Type: BLOOD SPECIMEN Ordering Facility: [facility] Address: [address] [place] [address] Performed By: #### 5 7021-8 #### [facility] [place] [facility] CLIA [id number] [address] [place] [address] [place] Eosinophils (Bld) [#/Vol] 0.09 10*3/uL Normal <0.46 [facility] Comment on above: Order Comment: Speci men Type: BLOOD SPECIMEN Ordering Facility: [facility] Address: [address] [place] [address] Performed By: #### 5 7021-8 #### [facility] [place] [facility] CLIA [id number] [address] [place] [address] [place] Eosinophils/100 WBC (Bld) 1.3 % Normal [facility] Comment on above: Order Comment: Speci men Type: BLOOD SPECIMEN Ordering Facility: [facility] Address: [address] [place] [address] Performed By: #### 5 7021-8 #### [facility] [place] [facility] CLIA [id number] [address] [place], [place] [id number] [place] Erythrocyte distribution width (RBC) [Ratio] 13.6 % Normal 11.5-15.0 [facility] Comment on above: Order Comment: Speci men Type: BLOOD SPECIMEN Ordering Facility: [facility] Address: [address] [place] [address] Performed By: #### 5 7021-8 #### [facility] [place] [facility] CLIA [id number] [address] [place] [address] [place] Hematocrit (Bld) [Volume fraction] 52.8 % High 39.0-51.0 [facility] Comment on above: Order Comment: Speci men Type: BLOOD SPECIMEN Ordering Facility: [facility] Address: [address] [place] [address] Performed By: #### 5 7021-8 #### [facility] [place] [facility] CLIA [id number] [address] [place] [id number] [place] Hemoglobin (Bld) [Mass/Vol] 16.8 g/dL Normal 13.0-17.0 [facility] Comment on above: Order Comment: Speci men Type: BLOOD SPECIMEN Ordering Facility: [facility] Address: [address] [place] [address] Performed By: #### 5 7021-8 #### [facility] [place] [facility] CLIA [id number] [address] [place] [id number] [place] Immature granulocytes (Bld) [#/Vol] 0.04 10*3/uL Normal <0.10 [facility] Comment on above: Order Comment: Speci men Type: BLOOD SPECIMEN Ordering Facility: [facility] Address: [address] [place] [address] Performed By: #### 5 7021-8 #### [facility] [place] [facility] CLIA [id number] [address] [place] [address] [place] Immature granulocytes/100 WBC (Bld) 0.6 % Normal [facility] Comment on above: Order Comment: Speci men Type: BLOOD SPECIMEN Ordering Facility: [facility] Address: [address] [place] [address] Performed By: #### 5 7021-8 #### [facility] [place] [facility] CLIA [id number] [address] [place] [address] [place] Lymphocytes (Bld) [#/Vol] 2.08 10*3/uL Normal 1.00-4.00 [facility] Comment on above: Order Comment: Speci men Type: BLOOD SPECIMEN Ordering Facility: [facility] Address: [address] [place] [address] Performed By: #### 5 7021-8 #### [facility] [place] [facility] CLIA [id number] [address] Lymphocytes/100 WBC (Bld) 30.1 % Normal [facility] Comment on above: Order Comment: Speci men Type: BLOOD SPECIMEN Ordering Facility: [facility] Address: [address] [place] [address] Performed By: #### 5 7021-8 #### [facility] [place] [facility] CLIA [id number] [address] [place] [address] [place] MCH (RBC) [Entitic mass] 28.0 pg Normal 26.0-34.0 [facility] Comment on above: Order Comment: Speci men Type: BLOOD SPECIMEN Ordering Facility: [facility] Address: [address] [place] [address] Performed By: #### 5 7021-8 #### [facility] [place] [facility] CLIA [id number] [address] [place] [address] [place] MCHC (RBC) [Mass/Vol] 31.8 g/dL Normal 30.5-36.0 [facility] Comment on above: Order Comment: Speci men Type: BLOOD SPECIMEN Ordering Facility: [facility] Address: [address] [place] [address] Performed By: #### 5 7021-8 #### [facility] [place] [facility] CLIA [id number] [address] [place] [address] [place] MCV (RBC) [Entitic vol] 88.1 fL Normal 80.0-100.0 [facility] Comment on above: Order Comment: Speci men Type: BLOOD SPECIMEN Ordering Facility: [facility] Address: [address] [place] [address] Performed By: #### 5 7021-8 #### [facility] [place] [facility] CLIA [id number] [address] [place] [address] [place] Monocytes (Bld) [#/Vol] 0.50 10*3/uL Normal <0.87 [facility] Comment on above: Order Comment: Speci men Type: BLOOD SPECIMEN Ordering Facility: [facility] Address: [address] [place] [address] Performed By: #### 5 7021-8 #### [facility] [place] [facility] CLIA [id number] [address] [place] Monocytes/100 WBC (Bld) 7.2 % Normal [facility] Comment on above: Order Comment: Speci men Type: BLOOD SPECIMEN Ordering Facility: [facility] Address: [address] [place] [address] Performed By: #### 5 7021-8 #### [facility] [place] [facility] CLIA [id number] [address] [place] [address] [place] Neutrophils (Bld) [#/Vol] 4.18 10*3/uL Normal 1.45-7.50 [facility] Comment on above: Order Comment: Speci men Type: BLOOD SPECIMEN Ordering Facility: [facility] Address: [address] [place] [address] Performed By: #### 5 7021-8 #### [facility] [place] [facility] CLIA [id number] [address] [place] Neutrophils/100 WBC (Bld) 60.4 % Normal [facility] Comment on above: Order Comment: Speci men Type: BLOOD SPECIMEN Ordering Facility: [facility] Address: [address] [place] [address] Performed By: #### 5 7021-8 #### [facility] [place] [facility] CLIA [id number] [address] [place] [address] [place] Nucleated RBC (Bld) [#/Vol] Normal [facility] Comment on above: Order Comment: Speci men Type: BLOOD SPECIMEN Ordering Facility: [facility] Address: [address] [place] [address] Performed By: #### 5 7021-8 #### [facility] [place] [facility] CLIA [id number] [address] [place] [address] [place] Nucleated RBC/100 WBC (Bld) [Ratio] Normal [facility] Comment on above: Order Comment: Speci men Type: BLOOD SPECIMEN Ordering Facility: [facility] Address: [address] [place] [address] Performed By: #### 5 7021-8 #### [facility] [place] [facility] CLIA [id number] [address] [place] [address] [place] Platelet mean volume (Bld) [Entitic vol] 9.1 fL Normal 9.0-12.7 [facility] Comment on above: Order Comment: Speci men Type: BLOOD SPECIMEN Ordering Facility: [facility] Address: [address] [place] [address] Performed By: #### 5 7021-8 #### [facility] [place] [facility] CLIA [id number] [address] [place] [address] [place] Platelets (Bld) [#/Vol] 233 10*3/uL Normal 150-400 [facility] Comment on above: Order Comment: Speci men Type: BLOOD SPECIMEN Ordering Facility: [facility] Address: [address] [place] [address] Performed By: #### 5 7021-8 #### [facility] [place] [facility] CLIA [id number] [address] [place] [address] [place] RBC (Bld) [#/Vol] 5.99 10*6/uL Normal 4.20-6.00 [facility] Comment on above: Order Comment: Speci men Type: BLOOD SPECIMEN Ordering Facility: [facility] Address: [address] [place] [address] Performed By: #### 5 7021-8 #### [facility] [place] [facility] CLIA [id number] [address] [place] [address] [facility] WBC (Bld) [#/Vol] 6.92 10*3/uL Normal 3.70-11.00 [facility] Comment on above: Order Comment: Speci men Type: BLOOD SPECIMEN Ordering Facility: [facility] Address: [address] [place] [address] Performed By: #### 5 7021-8 #### [facility] [place] [facility] CLIA [id number] [address] [place], [place] [address] [place] [address] Comprehensive metabolic 2000 panelon 05-22-2022 Albumin [Mass/Vol] 4.5 g/dL Normal 3.9-4.9 [facility] Comment on above: Order Comment: Speci men Type: BLOOD SPECIMEN Ordering Facility: [facility] Address: [address] [place] [address] Performed By: #### 2 4323-8, 21590-5 #### [facility] [place] [facility] CLIA [id number] [address] [place], [place] [id number] [place] [address] [place] ALP [Catalytic activity/Vol] 95 U/L Normal 38-113 [facility] Comment on above: Order Comment: Speci men Type: BLOOD SPECIMEN Ordering Facility: [facility] Address: [address] [place] [address] Performed By: #### 2 4323-8, 65644-9 #### [facility] [place] [facility] CLIA [id number] [address] [place] [address] [facility] [place] ALT With P-5'-P [Catalytic activity/Vol] 27 U/L Normal 10-54 [facility] Comment on above: Order Comment: Speci men Type: BLOOD SPECIMEN Ordering Facility: [facility] Address: [address] [place] [address] Performed By: #### 2 4323-8, 42685-9 #### [facility] [place] [facility] CLIA [id number] [address] [place] [address] [facility] [place] Anion gap [Moles/Vol] 14 mmol/L Normal 9-18 [facility] Comment on above: Order Comment: Speci men Type: BLOOD SPECIMEN Ordering Facility: [facility] Address: [address] [place] [address] Performed By: #### 2 4323-8, 83693-4 #### [facility] [place] [facility] CLIA [id number] [address] [place] [address] [place] AST With P-5'-P [Catalytic activity/Vol] 19 U/L Normal 14-40 [facility] Comment on above: Order Comment: Speci men Type: BLOOD SPECIMEN Ordering Facility: [facility] Address: [address] [place] [address] Performed By: #### 2 4323-8, 53074-3 #### [facility] CLIA [id number] [address] [place] [address] [place] Bilirubin [Mass/Vol] 0.3 mg/dL Normal 0.2-1.3 [facility] Comment on above: Order Comment: Speci men Type: BLOOD SPECIMEN Ordering Facility: [facility] Address: [address] [place] [address] Performed By: #### 2 4323-8, 03480-8 #### [facility] CLIA [id number] [address] [place] [address] [place] Calcium [Mass/Vol] 9.5 mg/dL Normal 8.5-10.2 [facility] Comment on above: Order Comment: Speci men Type: BLOOD SPECIMEN Ordering Facility: [facility] Address: [address] [place] [address] Performed By: #### 2 4323-8, 22645-1 #### [facility] CLIA [id number] [address] [place] [address] [place] Chloride [Moles/Vol] 100 mmol/L Normal 97-105 [facility] Comment on above: Order Comment: Speci men Type: BLOOD SPECIMEN Ordering Facility: [facility] Address: [address] [place] [address] Performed By: #### 2 4323-8, 11432-1 #### [facility] CLIA [id number] [address] [place] [address] [place] CO2 [Moles/Vol] 22 mmol/L Normal 22-30 [facility] Comment on above: Order Comment: Speci men Type: BLOOD SPECIMEN Ordering Facility: [facility] Address: [address] [place] [address] Performed By: #### 2 4323-8, 44505-3 #### [facility] CLIA [id number] [address] [place] Creatinine [Mass/Vol] 1.21 mg/dL Normal 0.73-1.22 [facility] Comment on above: Order Comment: Speci men Type: BLOOD SPECIMEN Ordering Facility: [facility] Address: [address] [place] [address] Performed By: #### 2 4323-8, 56564-1 #### [facility] CLIA [id number] [address] [place] [address] ESTIMATED GLOMERULAR FILTRATION RATE 68 mL/min/1.73m??? Normal >=60 [facility] Comment on above: Order Comment: Speci men Type: BLOOD SPECIMEN Ordering Facility: [facility] Address: [address] [place] [address] Result Comment: Iva mated Glomerular Filtration Rate (eGFR) is calculated using the 2020 CKD-EPI creatinine equation. This equation utilizes serum creatinine, sex, and age as parameters. The creatinine assay has traceable calibration to isotope dilution-mass spectrometry. Refer to KDIGO guidelines for clinical interpretation. In patients with unstable renal function, e.g. those with acute kidney injury, the eGFR may not accurately reflect actual GFR. Performed By: #### 2 4323-8, 60345-7 #### [facility] CLIA [id number] [address] [place] [id number] [place] Glucose [Mass/Vol] 164 mg/dL High 74-99 [facility] Comment on above: Order Comment: Speci men Type: BLOOD SPECIMEN Ordering Facility: [facility] Address: [address] [place] [address] Result Comment: The [place] Diabetes Association (ADA) provides guidance for cutoff values for fasting glucose and random glucose. The ADA defines fasting as no caloric intake for at least 8 hours. Fasting plasma glucose results between 100 to 125 mg/dL indicate increased risk for diabetes (prediabetes). Fasting plasma glucose results greater than or equal to 126 mg/dL meet the criteria for diagnosis of diabetes. In the absence of unequivocal hyperglycemia, results should be confirmed by repeat testing. In a patient with classic symptoms of hyperglycemia or hyperglycemic crisis, random plasma glucose results greater than or equal to 200 mg/dL meet the criteria for diagnosis of diabetes. Reference: Standards of Medical Care in Diabetes 2016, [place] Diabetes Association. Diabetes Care. 2016.39(Suppl 1). Performed By: #### 2 4323-8, 81095-9 #### [facility] CLIA [id number] [address] [place] [address] [place] Potassium [Moles/Vol] 4.3 mmol/L Normal 3.7-5.1 [facility] Comment on above: Order Comment: Milton jerez Type: BLOOD SPECIMEN Ordering Facility: [facility] Address: [address] [place] [address] Performed By: #### 2 43238, 17131-2 #### [facility] CLIA [id number] [address] [place] [address] [place] Protein [Mass/Vol] 7.2 g/dL Normal 6.3-8.0 [facility] Comment on above: Order Comment: Milton jerez Type: BLOOD SPECIMEN Ordering Facility: [facility] Address: [address] [place] [address] Performed By: #### 2 4328, #### [facility] CLIA [id number] [address] [place] [address] [place] Sodium [Moles/Vol] 136 mmol/L Normal 136-144 [facility] Comment on above: Order Comment: Milton jerez Type: BLOOD SPECIMEN Ordering Facility: [facility] Address: [address] [place] [address] Performed By: #### 2 43238, 48775-9 #### [facility] CLIA [id number] [address] [place] [address] [place] Urea nitrogen [Mass/Vol] 22 mg/dL Normal 9-24 [facility] Comment on above: Order Comment: Milton jerez Type: BLOOD SPECIMEN Ordering Facility: [facility] Address: [address] [place] [address] Performed By: #### 2 4323-8, 94340-3 #### [facility] CLIA [id number] [address] [place] HbA1c (Bld)on 05-22-2022 Average glucose Estimated from glycated hemoglobin (Bld) [Mass/Vol] 186 mg/dL Normal [facility] Comment on above: Order Comment: Milton jerez Type: BLOOD SPECIMEN Ordering Facility: [facility] Address: [address] [place] [address] Result Comment: eAG: (Estimated average glucose) is a calculated value from HgbA1c and is distribution sales representative of the average blood glucose level in the last 2-3 month period. Performed By: #### 5 5454-3 #### [facility] CLIA [id number] [address] [facility] HbA1c (Bld) [Mass fraction] 8.1 % High 4.3-5.6 [facility] Comment on above: Order Comment: Milton jerez Type: BLOOD SPECIMEN Ordering Facility: [facility] Address: [address] [place] [address] Result Comment: Amer [place] Diabetes Association guidelines indicate that patients with HgbA1c in the range 5.7-6.4% are at increased risk for development of diabetes, and intervention by lifestyle modification may be beneficial. HgbA1c greater or equal to 6.5% is considered diagnostic of diabetes. Performed By: #### 5 5454-3 #### [facility] CLIA [id number] [address] OF [facility] Lipid 1996 panelon 2 Cholesterol [Mass/Vol] 165 mg/dL Normal <200 [facility] Comment on above: Order Comment: Milton jerez Type: BLOOD SPECIMEN Ordering Facility: [facility] Address: [address] [place] [address] Result Comment: <200 mg/dL, Desirable 200-239 mg/dL, Borderline high >239 mg/dL, High Performed By: #### 2 4323-8, 65316-9 #### [facility] CLIA [id number] [address] [place] [address] [facility] Cholesterol in HDL [Mass/Vol] 47 mg/dL Normal >39 [facility] Comment on above: Order Comment: Milton jerez Type: BLOOD SPECIMEN Ordering Facility: [facility] Address: [address] [place] [address] Result Comment: 40-5 9 mg/dL, Acceptable >59 mg/dL, High: Negative risk factor for coronary heart disease <40 mg/dL, Low: Positive risk factor for coronary heart disease Performed By: #### 2 4323-8, 76831-4 #### [facility] CLIA [id number] [address] [place] [address] [facility] Cholesterol in LDL [Mass/Vol] 93 mg/dL Normal <100 [facility] Comment on above: Order Comment: Milton jerez Type: BLOOD SPECIMEN Ordering Facility: [facility] Address: [address] [place] [address] Result Comment: <100 mg/dL, Optimal 100-129 mg/dL, Near optimal/above optimal 130-159 mg/dL, Borderline high 160-189 mg/dL, High >189 mg/dL, Very high Secondary prevention optimal LDL Cholesterol levels are recommended to be < 70 mg/dL Performed By: #### 2 4323-8, 06274-8 #### [facility] CLIA [id number] [address] [place] [address] [facility] Cholesterol in LDL/Cholesterol in HDL [Mass ratio] 1.98 {ratio} Normal <2.54 [facility] Comment on above: Order Comment: Milton jerez Type: BLOOD SPECIMEN Ordering Facility: [facility] Address: [address] [place] [address] Result Comment: Refe rence: 1. National Cholesterol Education Program ATP III Guideline At-A-Glance Quick Desk Reference: National Heart, Lung, and Blood [place]. National Institutes of Health. 2001: NIH Publication No. 01-3305. 2. An International Atherosclerosis Society position paper: global recommendations for the management of dyslipidemia: executive summary, Atherosclerosis. 2014: 232(2):410-413. Performed By: #### 2 4323-8, 97023-0 #### [facility] CLIA [id number] [address] [place] [address] [facility] [place] Cholesterol in VLDL [Mass/Vol] 25 mg/dL Normal <30 [facility] Comment on above: Order Comment: Milton jerez Type: BLOOD SPECIMEN Ordering Facility: [facility] Address: [address] [place] [address] Performed By: #### 2 4323-8, 63879-2 #### [facility] CLIA [id number] [address] Cholesterol non HDL [Mass/Vol] 118 mg/dL Normal <130 [facility] Comment on above: Order Comment: Milton jerez Type: BLOOD SPECIMEN Ordering Facility: [facility] Address: [address] [place] [address] Result Comment: <130 mg/dL, Optimal 130-159 mg/dL, Near optimal/above optimal 160-189 mg/dL, Borderline high 190-219 mg/dL, High >219 mg/dL, Very high Secondary prevention optimal non HDL Cholesterol levels are recommended to be <100 mg/dL Performed By: #### 2 4323-8, 42705-9 #### [facility] CLIA [id number] [address] Cholesterol.total /Cholesterol in HDL [Mass ratio] 3.51 {ratio} Normal <5.10 [facility] Comment on above: Order Comment: Milton jerez Type: BLOOD SPECIMEN Ordering Facility: [facility] Address: [address] [place] [address] Performed By: #### 2 4323-8, 15975-4 #### [facility] CLIA [id number] [address] [place] [address] [facility] FASTING TIME 12 hrs Normal [facility] Comment on above: Order Comment: Milton jerez Type: BLOOD SPECIMEN Ordering Facility: [facility] Address: [address] [place] [address] Performed By: #### 2 4323-8, 80845-1 #### [facility] CLIA [id number] [address] [place] [address] [facility] Triglyceride [Mass/Vol] 126 mg/dL Normal <150 [facility] Comment on above: Order Comment: Speci men Type: BLOOD SPECIMEN Ordering Facility: [facility] Address: [address] [place] [address] Result Comment: <150 mg/dL, Normal 150-199 mg/dL, Borderline high 200-499 mg/dL, High >499 mg/dL, Very high Performed By: #### 2 4323-8, 19124-5 #### [facility] CLIA [id number] [address] [place] [id number] [facility] PSA/PROSTSPECAG SCRNon 05-22 Prostate specific Ag [Mass/Vol] 2.70 ng/mL High <2.60 [facility] Comment on above: Order Comment: Speci men Type: BLOOD SPECIMEN Ordering Facility: [facility] Address: [address] [place] [address] Result Comment: Tota l PSA test methodology used is the Electrochemiluminescence Immunoassay by [employer]. Total PSA values by differing methodologies cannot be interchanged. For an individual patient, the significance of a PSA level should be interpreted in a broad clinical context, including age, race, family history, digital rectal exam, prostate size, results of prior testing (prostate biopsy, free PSA, PCA3), and use of 5-alpha reductase inhibitors. Considering the high incidence of asymptomatic cancer in the general population that may not pose an ultimate risk to a patient, the decision to recommend urological evaluation or prostate biopsy should be individualized after consideration of all these factors. REFERENCE: Victorina Damon M.D., M.P.H., Devante Grigsby M.D., Ph.D., Pete Guzmán M.D., Zuri Padilla, M.P.H., Latasha Chaudhry, Jose Manuel. Effect of Verification Bias on Screening for Prostate Cancer by Measurement of Prostatic Specific Antigen. N Engl J Med 2003,349:335-42. Please note testing method change from Siemens Centaur to [employer] electrochemiluminescence immunoassay on 04/27/2022. Parallel testing using both instruments was performed on all patient specimens between 04/27/2022-07/20/2022. The Siemens Centaur value for this patient sample was 2.99 ng/mL. Performed By: #### P SAS1 #### [facility] CLIA [id number] [address] [facility] TESTOSTERONE, FREE AND TOTAL on 05-22-2022 TESTOSTERONE, FREE, S 7.48 ng/dL Normal 3.67-13.9 [facility] Comment on above: Order Comment: Jaisonsegundo jerez Type: BLOOD SPECIMEN Ordering Facility: [facility] Address: [address] [place] [address] Result Comment: ADDITIONAL INFORMATION This test was developed and its performance characteristics determined by [facility] in a manner consistent with CLIA requirements. This test has not been cleared or approved by the U.S. Food and Drug Administration. Performed By: #### T FTEST #### [facility] CLIA [id number] [address] [place], [place] [id number] TESTOSTERONE, TOTAL, S 221 ng/dL Low 240-950 [facility] Comment on above: Order Comment: Milton jerez Type: BLOOD SPECIMEN Ordering Facility: [facility] Address: [address] [place] [address] Result Comment: ADDITIONAL INFORMATION Testing performed by Liquid Chromatography-Tandem Mass Spectrometry (LC-MS/MS). This test was developed and its performance characteristics determined by [facility] in a manner consistent with CLIA requirements. This test has not been cleared or approved by the U.S. Food and Drug Administration. Test Performed by: [facility] [address] [id number] Jewelry Setter: Pete Lord M.D. Ph.D.; CLIA# [id number] Performed By: #### T FTEST #### [facility] CLIA [id number] [address] [place] [address] ED PROV NOTEon 01-05-2022 ED PROV NOTE HNO ID: [id number] Author: Quin Cooper MD Service: Emergency Medicine Author Type: Physician Type: ED Provider Notes Filed: 02/24/2022 2:45 AM Note Text: ED Provider Note Patient Name: Jorge Velasquez : 1960 SERVICE DATE: 01/05/22 History Patient presents with: Allergic Reaction Patient presents the emergency room, for concerns of acute allergic reaction to bee sting. Patient states that the reactions in the past and she is concerned again. Patient got stung, she notes large area of erythema, swelling, pain at the site. Patient did not take an EpiPen before coming to the hospital. Patient states she has no tongue swelling, no difficulty handling her secretions, and her voice is without changes. There is no wheezing. Allergic Reaction Presenting symptoms: itching, rash and swelling Severity: Mild Prior allergic episodes: Insect allergies Context: insect bite/sting Worsened by: Nothing PAST MEDICAL HISTORY Diagnosis Date Diabetes (HCC) Hypertension PAST SURGICAL HISTORY Procedure Laterality Date NONE FAMILY HISTORY Problem Relation Age of Onset Diabetes Father Diabetes Brother Cerebral Embolism Maternal Grandmother Cerebral Embolism Maternal Grandfather Social History Tobacco Use Smoking status: Former Smokeless tobacco: Not on file Tobacco comments: quit about 15 years ago Vaping Use Vaping Use: Never used Substance and Sexual Activity Alcohol use: No Drug use: No Sexual activity: Not on file ALLERGIES Allergen Reactions Bee Sting Hives Review of Systems Respiratory: Positive for cough and chest tightness. Gastrointestinal: Negative for nausea and vomiting. Skin: Positive for color change, itching and rash. All other systems reviewed and are negative. Physical Exam Vitals [01/05/22 181] BP Pulse Temp Temp src Resp SpO2 Weight Height 137/98 (!) 116 36.5 ?C (97.7 ?F) Temporal 16 96 % 91.6 kg (202 lb) 1.727 m (5' 8 ) Physical Exam Vitals and nursing note reviewed. Constitutional: General: He is not in acute distress. Appearance: Normal appearance. He is not ill-appearing or toxic-appearing. HENT: Head: Normocephalic and atraumatic. Mouth/Throat: Mouth: Mucous membranes are moist. Pharynx: No oropharyngeal exudate or posterior oropharyngeal erythema. Comments: No tongue enlargement, no pooling of secretions, no lip swelling, no angioedema, no stridor Eyes: General: Right eye: No discharge. Left eye: No discharge. Cardiovascular: Rate and Rhythm: Normal rate and regular rhythm. Pulmonary: Effort: No respiratory distress. Breath sounds: Normal breath sounds. No stridor. No wheezing or rales. Musculoskeletal: Cervical back: Neck supple. No rigidity or tenderness. Skin: General: Skin is warm and dry. Comments: Patient has erythematous, warm, area surrounding where she got stung, there is a couple small urticarial lesions surrounding it, no discharge, no blisters Neurological: General: No focal deficit present. Mental Status: He is alert and oriented to person, place, and time. Mental status is at baseline. Psychiatric: Mood and Affect: Mood normal. Behavior: Behavior normal. Diagnostic Testing ED Labs Ordered and Reviewed - No data to display Procedures ED Course / Clinical Impression Clinical Impressions as of 02/24/22 0237 Bee sting reaction, accidental or unintentional, initial encounter MDM / Disposition / Plan This note is a late chart entry for encounter on date of service. This is a 61-year-old female who presents the emergency room with concerns of acute allergic reaction to bee sting. Patient states has had a bad reaction in the past and she was afraid of the same. Patient did not take an EpiPen prior to presentation. On initial presentation, patient is tachycardic, she appears uncomfortable, however she is no acute respiratory distress. Patient does have some erythema and hives, raised region where she was stung, however I do not think she has findings for acute systemic anaphylactic reaction at this time. Secondary to the above, patient has not given epinephrine, however she is given Benadryl, Pepcid, steroids. Patient was kept in the emergency room for over 3 hours, she was continually monitored on pulse ox, and on reevaluation, she noted her symptoms were moderately improving. Patient has no progression of a receptive [place] comfortable discharging her home. Patient is given a short course of allergy cocktail , and a refill on her EpiPen. Patient instructed on use of EpiPen, and if she uses it, she is to present to the emergency department immediately following. Please note this report has been produced using speech recognition software and may contain errors related to that system including errors in grammar, punctuation, and spelling, as well as words and phrases that may be inappropriate. If there are any question (more content not included)... Normal [facility] Basic Metabolic Panelon 04-2 Anion gap [Moles/Vol] 15 mmol/L Normal 9-15 [facility] Comment on above: Performed By: #### B MP #### [facility] [address] [place] [address] Calcium [Mass/Vol] 9.0 mg/dL Normal 8.5-9.9 [facility] Comment on above: Performed By: #### B MP #### [facility] [address] [place] [address] Chloride [Moles/Vol] 100 mmol/L Normal 95-107 [facility] Comment on above: Performed By: #### B MP #### [facility] [address] [place] [address] CO2 [Moles/Vol] 21 mmol/L Normal 20-31 [facility] Comment on above: Performed By: #### B MP #### [facility] [address] [place] [address] Creatinine [Mass/Vol] 1.19 mg/dL Normal 0.70-1.20 [facility] Comment on above: Performed By: #### B MP #### [facility] [address] [place] [address] GFR >60.0 Normal >60 [facility] Comment on above: Result Comment: >60 mL/min/1.73m2 EGFR, calc. for ages 18 and older using the MDRD formula (not corrected for weight), is valid for stable renal function. Performed By: #### B MP #### [facility] [address] [place] [address] GFR/1.73 sq M.predicted among blacks MDRD (S/P/Bld) [Vol rate/Area] mL/min/{1.73_m2} Normal >60 [facility] Comment on above: Result Comment: >60 mL/min/1.73m2 EGFR, calc. for ages 18 and older using the MDRD formula (not corrected for weight), is valid for stable renal function. Performed By: #### B MP #### [facility] [address] [place] [address] Glucose [Mass/Vol] 220 mg/dL Critically high 70-99 [facility] Comment on above: Performed By: #### B MP #### [facility] [address] [place] [address] Potassium [Moles/Vol] 4.0 mmol/L Normal 3.4-4.9 [facility] Comment on above: Performed By: #### B MP #### [facility] [address] [place] [address] Sodium [Moles/Vol] 136 mmol/L Normal 135-144 [facility] Comment on above: Performed By: #### B MP #### [facility] [address] [place] [address] Urea nitrogen [Mass/Vol] 22 mg/dL Normal 8-23 [facility] Comment on above: Performed By: #### B MP #### [facility] [address] [place] [address] Anion gap [Moles/Vol] 15 mmol/L [facility] Calcium [Mass/Vol] 9.0 mg/dL 8.5 - 9.9 mg/dL [facility] Chloride [Moles/Vol] 100 mmol/L [facility] CO2 [Moles/Vol] 21 mmol/L [facility] Creatinine [Mass/Vol] 1.19 mg/dL 0.70 - 1.20 mg/dL [facility] GFR >60.0 >60 [facility] Comment on above: >60 mL/min/1.73m2 EG FR, calc. for ages 18 and older using the MDRD formula (not corrected for weight), is valid for stable renal function. GFR Non- >60.0 >60 [facility] Comment on above: >60 mL/min/1.73m2 EG FR, calc. for ages 18 and older using the MDRD formula (not corrected for weight), is valid for stable renal function. Glucose [Mass/Vol] 220 mg/dL High 70 - 99 mg/dL [facility] Interpretation and review of laboratory results Abnormal [facility] Potassium [Moles/Vol] 4.0 mmol/L [facility] Sodium [Moles/Vol] 136 mmol/L [facility] Urea nitrogen (BldV) [Mass/Vol] 22 mg/dL 8 - 23 mg/dL [facility] CBC With Platelet and Differ entialon 09-14-2021 Basophils (Bld) [#/Vol] 0.1 10*3/uL Normal 0.0-0.2 [facility] Comment on above: Performed By: #### C BCWD #### [facility] [address] [place] [address] Basophils/100 WBC (Bld) 1.1 % Normal [facility] Comment on above: Performed By: #### C BCWD #### [facility] [address] [place] [address] Eosinophils (Bld) [#/Vol] 0.1 10*3/uL Normal 0.0-0.7 [facility] Comment on above: Performed By: #### C BCWD #### [facility] [address] [place] [address] Eosinophils/100 WBC (Bld) 0.8 % Normal [facility] Comment on above: Performed By: #### C BCWD #### [facility] [address] [place] [address] Erythrocyte distribution width (RBC) [Ratio] 13.8 % Normal 11.5-14.5 [facility] Comment on above: Performed By: #### C BCWD #### [facility] [address] [place] [address] Hematocrit (Bld) [Volume fraction] 47.1 % Normal 42.0-52.0 [facility] Comment on above: Performed By: #### C BCWD #### [facility] [address] [place] [address] Hemoglobin (Bld) [Mass/Vol] 15.8 g/dL Normal 14.0-18.0 [facility] Comment on above: Performed By: #### C BCWD #### [facility] [address] [place] [address] Lymphocytes (Bld) [#/Vol] 1.7 10*3/uL Normal 1.0-4.8 [facility] Comment on above: Performed By: #### C BCWD #### [facility] [address] [place] [address] Lymphocytes/100 WBC (Bld) 26.7 % Normal [facility] Comment on above: Performed By: #### C BCWD #### [facility] [address] [place] [address] MCH (RBC) [Entitic mass] 28.4 pg Normal 27.0-31.3 [facility] Comment on above: Performed By: #### C BCWD #### [facility] [address] [place] [address] MCHC 33.5 % Normal 33.0-37.0 [facility] Comment on above: Performed By: #### C BCWD #### [facility] [address] [place] [address] MCV (RBC) [Entitic vol] 84.9 fL Normal 80.0-100.0 [facility] Comment on above: Performed By: #### C BCWD #### [facility] [address] [place] [address] Monocytes (Bld) [#/Vol] 0.5 10*3/uL Normal 0.2-0.8 [facility] Comment on above: Performed By: #### C BCWD #### [facility] [address] [place] [address] Monocytes/100 WBC (Bld) 8.0 % Normal [facility] Comment on above: Performed By: #### C BCWD #### [facility] [address] [place] [address] Neutrophils (Bld) [#/Vol] 4.1 10*3/uL Normal 1.4-6.5 [facility] Comment on above: Performed By: #### C BCWD #### [facility] [address] [place] [address] Neutrophils/100 WBC (Bld) 63.4 % Normal [facility] Comment on above: Performed By: #### C BCWD #### [facility] [address] [place] [address] Platelets (Bld) [#/Vol] 199 10*3/uL Normal 130-400 [facility] Comment on above: Performed By: #### C BCWD #### [facility] [address] [place] [address] RBC (Bld) [#/Vol] 5.54 10*6/uL Normal 4.70-6.10 [facility] Comment on above: Performed By: #### C BCWD #### [facility] [address] [place] [address] WBC (Bld) [#/Vol] 6.4 10*3/uL Normal 4.8-10.8 [facility] Comment on above: Performed By: #### C BCWD #### [facility] [address] [place] [address] CBC with Auto Differentialon 09-14-2021 Basophils (Bld) [#/Vol] 0.1 10*3/uL 0.0 - 0.2 K/uL 1Rebel Basophils/100 WBC (Bld) 1.1 % [facility] Eosinophils (Bld) [#/Vol] 0.1 10*3/uL 0.0 - 0.7 K/uL 1Rebel Eosinophils/100 WBC (Bld) 0.8 % [facility] Hematocrit (Bld) [Volume fraction] 47.1 % 42.0 - 52.0 % [facility] Hemoglobin.gastro intestinal spec 1 Ql (Stl) 15.8 g/dL 14.0 - 18.0 g/dL [facility] Lymphocytes (Bld) [#/Vol] 1.7 10*3/uL 1.0 - 4.8 K/uL [facility] Lymphocytes/100 WBC (Bld) 26.7 % [facility] MCH (RBC) [Entitic mass] 28.4 pg 27.0 - 31.3 pg [facility] MCHC (RBC) [Mass/Vol] 33.5 % 33.0 - 37.0 % [facility] MCV (RBC) [Entitic vol] 84.9 fL 80.0 - 100.0 fL [facility] Monocytes (Bld) [#/Vol] 0.5 10*3/uL 0.2 - 0.8 K/uL [facility] Monocytes/100 WBC (Bld) 8.0 % [facility] Neutrophils Absolute 4.1 K/uL 1.4 - 6.5 K/uL [facility] Neutrophils/100 WBC (Bld) 63.4 % [facility] Platelet distribution width (Bld) [Ratio] 13.8 % 11.5 - 14.5 % [facility] Platelets (Bld) [#/Vol] 199 10*3/uL 130 - 400 K/uL [facility] RBC (Bld) [#/Vol] 5.54 10*6/uL [facility] WBC (Bld) [#/Vol] 6.4 10*3/uL 4.8 - 10.8 K/uL [facility] OPERATIVE REPORTon 2 [place] [address] OPERATIVE REPORT PATIENT NAME: JORGE VELASQUEZ : 1960 MED REC NO: [id number] ROOM: ACCOUNT NO: [id number] ADMIT DATE: 09/14/2021 PROVIDER: Antonietta Robles MD DATE OF PROCEDURE: 09/14/2021 PREOPERATIVE DIAGNOSIS: Ventral hernia. POSTOPERATIVE DIAGNOSIS: Ventral hernia. PROCEDURE: Repair of ventral hernia with removal of umbilicus. SURGEON: Antonietta Robles MD ANESTHESIA: General with abdominal wall blocks. COMPLICATIONS: None. ESTIMATED BLOOD LOSS: Minimal. HISTORY: The patient is a 61-year-old male who comes in with a symptomatic ventral hernia present in the periumbilical area. It has deformed his umbilicus. After discussing with him in great detail his options of therapy, he was agreeable to hernia repair. The procedure of the repair of the hernia including possible mesh as well as risks and complications including, but not exclusive to infection, blood loss, damage to surrounding structures, recurrence, chronic pain and even the possibility of needing further surgery in the future were all discussed. He understood and was agreeable to the procedure. OPERATIVE PROCEDURE: The patient brought in the operative suite, placed in the supine position where general anesthetic was induced and he was intubated. Abdominal wall blocks were done by Anesthesia and the abdomen was then prepped and draped in a sterile fashion with an Ioban drape over the abdomen. Time-out called. The patient and procedure were properly identified. A transverse elliptical incision was then made to ellipse out the previous umbilicus and carried the incision down through into the subcutaneous tissue where there was noted to be a centimeter fascial defect present. The overlying skin as well as hernia sac were excised from this area. Afterwards the fascial defect was small enough that I felt it could be repaired with interrupted 0 Ethibond sutures. I used [id number] Ethibond sutures to close the fascial defect. Afterwards, sponge, needle, and instrument counts were correct. There was excellent hemostasis. Skin flaps were undermined circumferentially to be able to close the wound. It was then closed using 2-0 Vicryl, 3-0 Vicryl and 4-0 Monocryl with skin glue on the skin edges and an Aquacel dressing on the wound. He tolerated the procedure well, went to recovery in stable condition and I spoke with family after the procedure. ANTONIETTA ROBLES MD NIELS/[email or web address] Doc#: [id number] CC: Normal [facility] POCT Glucoseon 09-14-2021 Glucose [Mass/Vol] 203 mg/dL Critically high 70-99 [facility] Comment on above: Performed By: #### P GLU #### [facility] [address] [place] [address] POC Performed on ACCU-CHEK Normal [facility] Comment on above: Performed By: #### P GLU #### [facility] [address] [place] [address] Glucose [Mass/Vol] 203 mg/dL High 70 - 99 mg/dl [facility] Interpretation and review of laboratory results Abnormal [facility] Performed on ACCU-CHEK [facility] CT ABDOMEN PELVIS W IV CONTR Jannet 06-24-2021 CT ABDOMEN PELVIS W IV CONTRAST EXAMINATION: CT ABDOMEN PELVIS W IV CONTRAST DATE AND TIME:06/24/2021 9:05 AM CLINICAL HISTORY: Acute abdominal pain. Epigastric pain. S39.011S Strain of abdominal wall, sequela ICD10 COMPARISON: None available. TECHNIQUE: Contiguous axial CT sections of the abdomen and pelvis. 100 cc's of IV contrast given. All CT scans at this facility use dose modulation, iterative reconstruction, and/or weight based dosing when appropriate to reduce radiation dose to as low as reasonably achievable. Some of this report was completed using [employer] voice-recognition technology and may include unintended errors with respect to translation of words, typographical errors or grammatical errors which may not have been identified prior to the finalization of this report. FINDINGS Liver: Hepatic steatosis. No focal hepatic lesion. Spleen: Negative Gallbladder: No calcified gallstones. Normal gallbladder wall. No pericholecystic fluid. Pancreas: Negative Kidney: Bilateral renal calculi, the largest in the right kidney measuring approximately 4 mm. No hydronephrosis. Adrenal glands are negative. Bowel: Negative. There is no CT evidence for appendicitis. Nodes: No lymphadenopathy. Aorta: Negative Pelvis:Negative Peritoneum: No free fluid or free air. The abdominal wall is intact. Bones: No acute osseous abnormalities. Other:None IMPRESSION: BILATERAL NEPHROLITHIASIS. NO ACUTE PATHOLOGY IN THE ABDOMEN OR PELVIS. Interpreted by: Lloyd Valencia MD Signed by: Lloyd Valencia MD 06/24/21 Final result Normal [facility] POCT Venouson 06-24-2021 Creatinine [Mass/Vol] 1.1 mg/dL Normal 0.8-1.3 [facility] Comment on above: Performed By: #### P EL #### [facility] [address] [place] [address] GFR >60 Normal >60 [facility] Comment on above: Result Comment: >60 mL/min/1.73m2 EGFR, calc. for ages 18 and older using the MDRD formula (not corrected for weight), is valid for stable renal function. Performed By: #### P EL #### [facility] [address] [place] [address] GFR/1.73 sq M.predicted among blacks MDRD (S/P/Bld) [Vol rate/Area] mL/min/{1.73_m2} Normal >60 [facility] Comment on above: Result Comment: >60 mL/min/1.73m2 EGFR, calc. for ages 18 and older using the MDRD formula (not corrected for weight), is valid for stable renal function. Performed By: #### P EL #### [facility] [address] [place] [address] POC Performed on SEE BELOW Normal [facility] Comment on above: Result Comment: Perf ormed on POC Performed By: #### P EL #### [facility] [address] [place] [address] POC Sample Type EL Normal [facility] Comment on above: Performed By: #### P EL #### [facility] [address] [place] [address] Clinical Summary: HMSPatient IDon 04-23-2020 OOP [facility] Work Phone: Office Visit: New - 1st visi t with practice, Rm: 3on 04-23-2020 NEGATED: Highlighted rowTobacco smoking status NHIS Tobacco smoking status [facility] Work Phone: NEGATED: Highlighted rowxray history of the back/hip on 03/29/2020 at [facility] Work Phone: XR HIP 3V PELV+ AP/LAT LTon 03-29-2020 XR HIP 3V PELV+ AP/LAT LT Final Report DATE OF EXAM: Mar 29 2020 8:48AM LDX 5351 - XR HIP 3V PELV+ AP/LAT LT / PROCEDURE REASON: Sciatica pain with radiculopathy, Lt. hip pain Physician Interpretation EXAM TITLE: XR HIP 3V PELV+ AP/LAT LT DATE: 03/31/2020 8:55 AM INDICATION: Left hip pain COMPARISON: None. FINDINGS: There is a well-corticated bony density adjacent to the acetabulum that is probably an anatomic variant since a similar density is noted on the right. There is a well-corticated ossific density near the lesser trochanter which may be the result of remote trauma. Otherwise, there is no acute fracture or dislocation. The joint spaces are maintained. Soft tissues are normal. IMPRESSION: No acute process. See above. [employer] Rails Web Developer: [employer] Transcribe Date/Time: Mar 31 2020 8:55A Dictated by : KAITY TRUJILLO MD This examination was interpreted and the report reviewed and electronically signed by: KAITY TRUJILLO MD on Mar 31 2020 8:56AM EST Normal [facility] XR LUMBAR PARS 4V AP/LAT/OBL X2on 03-29-2020 XR LUMBAR PARS 4V AP/LAT/OBL X2 Final Report DATE OF EXAM: Mar 29 2020 8:46AM LDX 5233 - XR LUMBAR PARS 4V AP/LAT/OBL X2 / PROCEDURE REASON: Sciatica pain with radiculopathy Physician Interpretation XR LUMBAR PARS 4V AP/LAT/OBL X2 HISTORY: 59 years old Clinical information: Sciatica pain with radiculopathy LBP with lt. sided sciatica, Lt. hip pain TECHNIQUE: Images: XR LUMBAR PARS 4V AP/LAT/OBL X2 Comparison: None. RESULT: Advanced endplate degenerative changes with disc space narrowing and marginal spurs L2-3 level. Moderate degree of posterior hypertrophic changes at the same level. Multilevel endplate degenerative changes disc space narrowing lower thoracic/upper lumbar spine. L4-5 and L5-S1 levels are preserved. No fractures or dislocations are seen. Vascular calcifications. IMPRESSION: Advanced endplate degenerative changes with disc space narrowing and marginal spurs L2-3 level. Moderate degree of posterior hypertrophic changes at the same level. [employer] Rails Web Developer: [facility] Transcribe Date/Time: Mar 31 2020 9:38A Dictated by : SANDRA REGALADO MD This examination was interpreted and the report reviewed and electronically signed by: SANDRA REGALADO MD on Mar 31 2020 9:38AM EST Normal [facility] Vital Signs Date Time Vital Sign Value Performing Clinician Facility 09-14-2021 13:40-0400 Diastolic blood pressure 85 mm[Hg] Antonietta Robles MD Work Phone: [facility] 09-14-2021 13:40-0400 Heart rate 78 /min Antonietta Robles MD Work Phone: [facility] 09-14-2021 13:40-0400 SaO2% (BldA) [Mass fraction] 97 % Antonietta Robles MD Work Phone: [facility] 09-14-2021 13:40-0400 Systolic blood pressure 151 mm[Hg] Antonietta Robles MD Work Phone: [facility] 09-14-2021 13:34-0400 Respiratory rate 18 /min Antonietta Robles MD Work Phone: [facility] 09-14-2021 13:00-0400 Body temperature 98.01 [degF] Antonietta Robles MD Work Phone: [facility] NEGATED: Highlighted [id number] 08:56-0500 BMI (Body Mass Index) 30.06 kg/m2 [facility] Work Phone: NEGATED: Highlighted [id number] 08:56-0500 Body weight 89.36 kg [facility] Work Phone: NEGATED: Highlighted [id number] 08:56-0500 Body weight 90 kg [facility] Work Phone: NEGATED: Highlighted [id number] 08:56-0500 Heart rate 2+ [facility] Work Phone: NEGATED: Highlighted [id number] 08:56-0500 Height 172.72 cm [facility] Work Phone: NEGATED: Highlighted [id number] 08:56-0500 Height [address] [facility] Work Phone: Encounters Encounter Date Encounter Type Care Provider Facility Start: 05-22-2022 End: 05-23-2022 ambulatory MERCEDES ARELLANO Facility:[facility] Start: 01-05-2022 End: 01-05-2022 Emergency department patient visit MERCEDES ARELLANO Facility:[facility] Start: 09-14-2021 End: 09-14-2021 [facility] Start: 09-14-2021 End: 09-14-2021 Subsequent hospital visit by physician Antonietta Robles MD Work Phone: [facility] Comment on above: Ventral hernia witho ut obstruction or gangrene (Primary Dx) Start: 06-24-2021 End: 06-27-2021 ambulatory VANDANA DIAZ [facility] Start: 04-23-2020 End: 04-23-2020 Patient encounter procedure Librado Patel MD Work Phone: [facility] Work Phone: Start: 04-14-2020 End: 04-14-2020 Subsequent hospital visit by physician [facility] Comment on above: Arrived Start: 04-09-2020 End: 04-09-2020 Subsequent hospital visit by physician [facility] Comment on above: Canceled (Other) Start: 04-07-2020 End: 04-07-2020 Subsequent hospital visit by physician [facility] Comment on above: Arrived Start: 04-02-2020 End: 04-02-2020 Subsequent hospital visit by physician [facility] Comment on above: Arrived Start: 03-31-2020 End: 03-31-2020 Subsequent hospital visit by physician [facility] Comment on above: Arrived Start: 03-27-2020 End: 03-27-2020 Subsequent hospital visit by physician Lisa Fu [facility] Comment on above: Arrived Procedures Date Procedure Procedure Detail Performing Clinician Start: 09-14-2021 Ecg routine ecg w/le ast 12 lds w/i&r Roderick King MD Work Phone: Start: 09-14-2021 End: 09-14-2021 Basic metabolic panel calcium total Roderick King MD Work Phone: Start: 04-23-2020 End: 04-23-2020 Blood pressure screening not performed - reason not given Librado Patel MD Work Phone: Start: 04-23-2020 End: 04-23-2020 BMI documented as above normal parameters - follow-up documented Librado Patel MD Work Phone: Start: 04-23-2020 End: 04-23-2020 Documentation of current medications Librado Patel MD Work Phone: Start: 04-23-2020 End: 04-23-2020 Pain assessment documented as positive - follow-up documented Librado Patel MD Work Phone: Start: 04-23-2020 End: 04-23-2020 Tobacco non-user Librado Contreras i, MD Work Phone: NEGATED: Highlighted rowStart: 04-23-2020 End: 04-23-2020 Documentation of current medications Sharita Motley Plan of Treatment Date Care Activity Detail Author Start: 09-14-2022 Creatinine measurement Creatinine [facility] Start: 09-14-2022 Potassium [Moles/volume] in Serum or Plasma Potassium [facility] Start: 01-21-2022 Influenza vaccination Flu vaccine (Season Ended) [facility] Start: 09-14-2021 End: 09-14-2021 Repair first abdominal wall hernia HERNIA VENTRAL REPAIR VENTRAL HERNIA 09/14/2021 11:01 AM EDT [facility] Start: 05-27-2020 Shingles Vaccine (2 of 2) Shingles Vaccine (2 of 2) [facility] nanda Start: 05-05-2020 End: 05-05-2020 Appointment 05/05/2020 Appointment Occupational Therapy Lisa Johnson OTR/L [facility] Start: 04-30-2020 End: 04-30-2020 Appointment 04/30/2020 Appointment Occupational Lisa Keita OTR/Eduin [facility] Start: 04-28-2020 End: 04-28-2020 Appointment 04/28/2020 Appointment Occupational Lisa Keita OTR/L [facility] Start: 04-23-2020 End: 04-23-2020 Appointment 04/23/2020 Appointment Occupational Lisa Keita OTR/L [facility] Start: 04-23-2020 End: 04-23-2020 Appointment Appointment [facility] Work Phone: Start: 04-21-2020 End: 04-21-2020 Appointment 04/21/2020 Appointment Occupational Lisa Keita OTR/Eduin [facility] Start: 04-16-2020 End: 04-16-2020 Appointment 04/16/2020 Appointment Occupational Lisa Keita OTR/L [facility] Start: 04-14-2020 End: 04-14-2020 Appointment 04/14/2020 Appointment Occupational Lisa Keita OTR/Eduin [facility] Start: 04-09-2020 End: 04-09-2020 Appointment 04/09/2020 Appointment Occupational Lisa Keita OTR/L [facility] Start: 04-07-2020 End: 04-07-2020 Appointment 04/07/2020 Appointment Occupational Lisa Keita OTR/L [facility] Start: 04-02-2020 End: 04-02-2020 Appointment 04/02/2020 Appointment Occupational Lisa Keita OTR/Eduin [facility] Start: 03-31-2020 End: 03-31-2020 Appointment 03/31/2020 Appointment Occupational Lisa Keita OTR/L [facility] Start: 01-22-2020 Influenza vaccination Flu vaccine (#1) [facility] [place] [place] Start: 11-14-2016 Creatinine measurement Creatinine monitoring [place], [place] Start: 11-14-2016 HbA1c (Bld) [Mass fraction] A1C test (Diabetic or Prediabetic) [place], [place] Start: 11-14-2016 Hemoglobin A1c measurement A1C test (Diabetic or Prediabetic) [facility] Start: 11-14-2016 Lipid panel [facility] Start: 11-14-2016 Potassium monitoring Potassium monitoring [place], [place] Start: 2010 Screening for malignant neoplasm of colon Colon cancer screen colonoscopy [place], [place] Start: 2010 Shingles Vaccine (1 of 2) Shingles Vaccine (1 of 2) [place], [place] Start: 2005 Screening for malignant neoplasm of colon [facility] Start: 08-04-1979 DTaP/Tdap/Td vaccine (1 - Tdap) DTaP/Tdap/Td vaccine (1 - Tdap) [facility] Start: 08-04-1979 Hepatitis B vaccine (1 of 3 - Risk 3-dose series) Hepatitis B vaccine (1 of 3 - Risk 3-dose series) [place], [place] Start: 1978 Diabetic microalbuminuria test Diabetic microalbuminuria test [place], [place] Start: 1978 Diabetic retinal exam Diabetic retinal exam [facility] Start: 1978 Hepatitis C screening Hepatitis C screen [facility] Start: 1978 Urine screening for protein Diabetic microalbuminuria test [facility] Start: 08-04-1975 HIV screening HIV screen [facility] Start: 1972 Depression Monitoring Depression Monitoring [facility] Start: 1970 Diabetic foot examination Diabetic foot exam [facility] Start: 1970 Diabetic retinal exam Diabetic retinal exam [place], [place] Start: 1966 Pneumococcal 0-64 years Vaccine (1 - PCV) Pneumococcal 0-64 years Vaccine (1 - PCV) [facility] Start: 1966 Pneumococcal 0-64 years Vaccine (1 of 1 - PPSV23) Pneumococcal 0-64 years Vaccine (1 of 1 - PPSV23) [place], [place] Start: 1960 Hepatitis C screening Hepatitis C screen [place], [place] EKG 12 Lead EKG 12 Lead ECG Routine 09/14/2021 8:06 AM EDT [facility] Work Phone: End: 09-14-2021 INITIATE PACU OXYGEN THERAPY PROTOCOL Initiate PACU Oxygen Therapy Protocol Respiratory Care Routine Continuous until discontinued starting 09/14/2021 [facility] Phone: Comment on above: Continuous until discontinued starting 0 09/14/2021 Oxygen therapy [[facility] Data Set] Initiate Oxygen Therapy Protocol Respiratory Care Routine Daily until discontinued starting 09/14/2021 [facility] Phone: Comment on above: Daily until discontinued starting 2021 Payers Date Payer Category Payer Private Health Insurance [id number] 2020 Unknown GENERIC SELF-INS URED GENERIC SELF-INSURED [id number] 2020-Present [address] [place] [address] [phone] [id number] 2020 Unknown [id number] 2011 Unknown [id number] 1960 Unknown [id number] 1960 Unknown [id number] Social History Date Type Detail Facility Start: 12-24-2014 End: 11-13-2015 Tobacco [facility] status NHIS [facility] Start: 12-24-2014 End: 11-13-2015 Tobacco use and exposure Never used [facility] [place] Start: 11-13-2015 End: 09-14-2021 Alcohol intake Current non-drinker of alcohol (finding) [facility] Start: 1960 Sex Assigned At Not on file [facility] Start: 09-14-2021 Alcohol intake [facility] Phone: Start: 09-04-2021 End: 09-14-2021 Exposure to SARS-CoV-2 (event) Not sure [facility] Phone: NEGATED: Highlighted rowStart: 04-23-2020 End: 04-23-2020 Alcohol use Alcohol use [facility] Work Phone: NEGATED: Highlighted rowStart: 04-23-2020 End: 04-23-2020 Details of drug misuse behavior Details of drug misuse behavior [facility] Work Phone: NEGATED: Highlighted rowStart: 04-23-2020 End: 04-23-2020 Employment detail Employment detail [facility] Work Phone: NEGATED: Highlighted rowStart: 04-23-2020 End: 04-23-2020 Assertion Former smoker [facility] Work Phone: History of Present illness Narrative 09-14-2021 Sandra Dhillon RN - 09/14/2021 1:00 PM EDT Note Date & Type Note Facility 09-14-2021 History of Present illness Narrative Abdomen soft and rounded, aquacel dressing intact, binder on, ice pack on, Patient states pain is better and tolerable at 2 on pain scale, documented in this encounter [facility] Phone: Evaluation note Note Date & Type Note Facility Evaluation note Diagnosis Ventral hernia without obstruction or gangrene- Primary Ventral hernia, unspecified, without mention of obstruction or gangrene documented in this encounter [facility] Phone: Hospital Discharge instructions Instructions Note Date & Type Note Facility Hospital Discharge instructions Antonietta Robles MD - 09/14/2021 Patient Discharge Instructions Discharge Date: 09/14/2021 Discharged To: Home RESUME ACTIVITY: BATHING: shower only for 2 weeks, no baths, hot tub or swim pool DRIVING: No driving until walking comfortably and off pain meds RETURN TO WORK: May return to work when pain allows WALKING: Encourage to walk as much as comfortable SEXUAL ACTIVITY: As pain tolerates STAIRS: Yes in moderation LIFTING: Less than 20 pounds for 2 weeks, remember to lift as tolerated by your pain level DIET: Light diet today and resume normal diet tomorrow WOUND CARE: Keep Aquacel dressing in place until your first postoperative visit. You may shower with Aquacel dressing in place. Wear abdominal binder at all times.. There are sutures on each side of the incision that will fall off in 2-4 weeks. Allow shower to the wound and blot dry with a towel. Do not scrub the incision SPECIAL INSTRUCTIONS: Call the office at [phone] if you have a fever > 100.6 F, vomiting or if your incision becomes red, tender, or drains more than a small amount of clear fluid. Remember the more active you are the more pain to expect documented in this encounter [facility] Phone: Reason for visit Narrative Auth/Cert Note Date & Type Note Facility Reason for visit Narrative Specialty Diagnoses / Procedures Referred By Uche faust Referred To Contact Diagnoses Ventral hernia VENTRAL HERNIA Procedures GA REPAIR INCISIONAL HERNIA,REDUCIBLE REPAIR OF VENTRAL HERNIA WITH UMBILECTOMY (PAT ON ADMIT) CASE #2 Antonietta Robles MD [address] [address] [address] [place] [address] Referral ID Status Reason Start Date Expiration Date Visits Re quested Visits Authorized [id number] 1 1 [facility] Phone: History of Present Illness * Jorge Augustin, KRYSTLER/Eduin - 03/27/2020 10:00 AM EST [] [facility] [place]: [address] [place] [address] [] [facility]: [address] [place] [address] OCCUPATIONAL THERAPY EVALUATION Evaluation Date: 03/27/2020 OT Eval low complexity 50 minutes for 1 unit, CPT 10673 Patient Name:Jorge Velasquez Gender: male Date of : 1960 Physician: Dr. Antonietta Low MD Diagnosis: Overexertion from repetitive movements X50.3XXA., Lesion of Ulnar Nerve, bilateral upper. Treating diagnosis: R29.898 Other symptoms and signs involving the musculoskeletal systems (decreased sensation in ulnar distibution in bilateral UE's from elbows distally to 4th and 5th digits) Referral Date: 02/19/2020 Onset Date: 01/31/2020 PMH: Patient Active Problem List Diagnosis Diabetes (HCC) Hypertension Hyperlipidemia GERD (gastroesophageal reflux disease) Anxiety Depression Low back pain Past Medical History: Diagnosis Date Anxiety Depression Diabetes (HCC) GERD (gastroesophageal reflux disease) GERD (gastroesophageal reflux disease) Hypertension Past Surgical History: Procedure Laterality Date COLONOSCOPY 09/2013 UPPER GASTROINTESTINAL ENDOSCOPY 07/2013 Allergies Allergen Reactions Other Hives and Swelling BEE STINGS Diagnostic imaging: N/A Medications: Current Outpatient Medications: buPROPion (WELLBUTRIN XL) 150 MG XL tablet, Take 1 tablet by mouth every morning, Disp: 90 tablet, Rfl: 1 esomeprazole (NEXIUM) 40 MG capsule, Take 1 capsule by mouth every morning (before breakfast), Disp: 90 capsule, Rfl: 1 fluticasone (FLONASE) 50 MCG/ACT nasal spray, 1 spray by Nasal route daily, Disp: 1 Bottle, Rfl: 2 lisinopril (PRINIVIL;ZESTRIL) 20 MG tablet, Take 1 tablet by mouth 2 times daily, Disp: 90 tablet, Rfl: 1 metFORMIN (GLUCOPHAGE) 500 MG tablet, Take 1 tablet by mouth 2 times daily (with meals), Disp: 180 tablet, Rfl: 1 naproxen (NAPROSYN) 500 MG tablet, Take 1 tablet by mouth 2 times daily (with meals), Disp: 180 tablet, Rfl: 1 pioglitazone (ACTOS) 30 MG tablet, Take 1 tablet by mouth daily, Disp: 90 tablet, Rfl: 1 simvastatin (ZOCOR) 20 MG tablet, Take 1 tablet by mouth nightly, Disp: 90 tablet, Rfl: 1 ALPRAZolam (XANAX) 0.5 MG tablet, Take 1 tablet by mouth nightly as needed for Sleep, Disp: 90 tablet, Rfl: 1 hydrOXYzine (ATARAX) 25 MG tablet, Take 25 mg by mouth 3 times daily as needed for Itching, Disp: ,Rfl: Visits Allowed/Insurance/Certification Information: 12 Restrictions/Precautions Liftin lbs of any material or objects Upper Sorbian primary language: No Transfer of pt care required: yes, Transfer care to lead OTR SUBJECTIVE FINDINGS Support contact: Alicia Resendiz Pt lives: spouse Home: two level with 13 stairs going up and handrail(s) left going up Entrance: 3 stairs into the house, Bathroom: bathroom on 2nd floor DME: None Pain: Pt reports that it does not cause him pain. Pain Location Description Initial Rating Current Rating Improved by Worsened by N/A N/A 0/10 0/10 N/A N/A Max pain at home during activities: 0/10 Lowest pain at home during activities/rest: 0/10 Action for pain: No action necessary. Prior Level of Functioning: Patient performing at independent level for ADL and IADL activities. 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 Pt reports the greatest amount required to lift is approximately 30# Pt has work restrictions. Current work restriction is lifting no more than 5# Is this a work related injury: yes Is this a [facility] claim: yes [id number] Driving:yes Hobbies, Leisure, social activities: Fishing and mowing grass Previous OT treatments for this condition: no. History of Present Illness or Pain/ Chief complaint:Pt reports that during a work day that he started to develop numbness and tingling in bilateral UE's starting at bilateral elbows distally following the ulnar nerve distribution. Current Functional Limitations Per Patient Report: Orientation: person , place , time and situation Communication: No concerns Hearing: No concerns Perception: No concerns Vision: glasses for distance Feeding: No concerns and IND Grooming: No concerns and IND Bathing: No concerns and IND UE dressing: No concerns and IND LE dressing: No concerns and IND Toileting: No concerns and IND Toilet transfer: No concerns and IND Tub/Shower transfer: No concerns and IND Cooking: No concerns and IND Cleaning: No concerns and IND Laundry: No concerns and IND Sleep: Impaired and Comments: Pt reports at times that he wakes up with his arms Asleep . Pt reports episodes of that are subsiding. Medication management: No concerns and IND Patient goal for therapy: Get rig of this tingling. OBSERVATION: Asymmetrical posture , Shoulders rounded Left shoulder elevated mild forward lean noted. OBJECTIVE FINDINGS Hand Dominance: right Upper Extremity Strength and Range of Motion Right Left MMT A P Norm A P MMT Shoulder Flexion 5/5 WFL NT 0-180 WFL NT 5/5 Abduction 5/5 WFL NT 0-180 WFL NT 5/5 Internal Rotation 5/5 WFL NT 0-80 WFL NT 5/5 External Rotation 5/5 WFL NT 0-60 WFL NT 5/5 Elbow Flexion 5/5 WFL NT 0-150 WFL NT 5/5 Extension 5/5 WFL NT 150-0 WFL NT 5/5 Pronation 5/5 WFL NT 0-80 WFL NT 5/5 Supination 5/5 WFL NT 0-80 WFL NT 5/5 Wrist Flexion 5/5 WFL NT 0-70 WFL NT 5/5 Extension 5/5 WFL NT 0-60 WFL NT 5/5 Ulnar deviation 5/5 WFL NT 0-30 WFL NT 5/5 Radial Deviation 5/5 WFL NT 0-20 WFL NT 5/5 Comments: Hand Range of Motion Right Left Normal MP PIP DIP MP PIP DIP 0-90 0-100 0-70 0-90 0-100 0-70 A P A P A P A P A P A P Index Extension WFL NT WFL NT WFL NT WFL NT WFL NT WFL NT Flexion WFL NT WFL NT WFL NT WFL NT WFL NT WFL NT Middle Extension WFL NT WFL NT WFL NT WFL NT WFL NT WFL NT Flexion WFL NT WFL NT WFL NT WFL NT WFL NT WFL NT Ring Extension WFL NT WFL NT WFL NT WFL NT WFL NT WFL NT Flexion WFL NT WFL NT WFL NT WFL NT WFL NT WFL NT [place] WFL NT WFL NT WFL NT WFL NT WFL NT WFL NT Flexion WFL NT WFL NT WFL NT WFL NT WFL NT WFL NT Comments: Right Left Norms A P A P Thumb MP Flexion WFL NT WFL NT 0-70 IP Flexion WFL NT WFL NT 0-90 Radial Abduction WFL NT WFL NT 0-50 Palmar Adduction WFL NT WFL NT 0-40 Comments: Opposition Right Hand: WFL Left Hand: WFL Distance Thumb Tip from Head of 5th MC: measurements cm or inches Right Hand: WFL Left Hand: WFL Edema Circumferential measurements cm or inches Right Left Distal Crease 9 9 Wrist (across styloid) 7 7 Metacarpal Phalangeal 8 1/2 8 3/4 Emergency Room Clinician & Pinch Strength Average of 3 tries Right Norm Left Norm Emergency Room Clinician (lb) 111 Male age 55-59: 94 lbs 109 Male age 55-59: 87 lbs Moore Pinch (lb) 21 Male age 55-59: 17.5 lbs 19 Male age 55-59: 16.5 lbs Lateral Pinch (lb) 23 Male age 55-59: 19.5 lbs 22 Male age 55-59: 18.0 lbs Comments: Coordination & Dexterity Right Norm Left Norm Nine Hole Peg Test (seconds) 20.9 Male age 55-59: 19.2 s 22.9 Male age 55-59: 21.0 s Box & Blocks (# of blocks) 70 Male age 55-59: 75.2 62 Male age 55-59: 73.8 Comments: Skin Integrity Pt has psoriasis and exhibits mild abrasions on bilateral hands right>left. Cognition: WFL Sensation: Pt reports tingling from bilateral elbows distally to 4th and 5th digits in ulnar distribution. Tone: normal tone Joint Mobility No concerns Palpation/Tenderness N/A Education/Barriers to learning: Barriers:none Education on this date: OT role and POC ASSESSMENT Pt is a 59 y.o. male with c/o tingling in bilateral UE's from bilateral elbows to 4th and 5th digits in ulnar distribution. 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 No comorbities affecting occupational performance [] Medium Complexity: History: Expanded review of medical records and additional review of physical, cognitive, or psychosocial history related to current functional performance Exam: 3-5 performance deficits Assistance/Modification: Min/mod assistance or modifications required to perform tasks. May have comorbidities that affect occupational performance. [] High Complexity: History: Extensive review of medical records and additional review of physical, cognitive, or psychosocial history related to current functional performance. Exam: 5 or more performance deficits Assistance/Modification: Significant assistance or modifications required to perform tasks. Have comorbidities that affect occupational performance. AM-PAC OSWESTRY Disability Index Quick DASH The Upper Extremity Functional Index Rehabilitation Potential: [x] Excellent [] Good [] Fair [] Poor PLAN OF CARE To see patient for 2 x/week for 4-6 weeks or 12 visits for the following treatment interventions: [x] Evaluate & Treat [] Neuromuscular Re-education: [x] Re-evaluation [x] Tissue (stress) Loading Program [] Pain Management [x] PROM/Stretching/AAROM/AROM [] Edema Management [] Splinting [] Wound Care/Scar Management [] Desensitization [] ADL Training [x] Strengthening/Graded Therapeutic Activity [] Tendon Repair Program [x] Coordination/Dexterity Training [x] Instruction/Application of energy [x] Manual Techniques conservation, work simplification [x] Instruction in HEP joint protection, body mechanics [] Aquatic Therapy [x] Modalities [x] Ultrasound [x] Infrared [x] Hot/Cold Pack: [] Paraffin [] Other: [x] Electrical Stimulation [] Fluidotherapy [x] ALDANA able to work with pt [x] D/C plan: Will assess pt after established visits to determine need for continued therapy. GOALS: LTG 1 : Patient will be independent with all recommended HEP's, adaptive strategies, and adaptive techniques. LTG 2 : Patient will report decreased frequency of tingling in bilateral UE's elbows to hands. LTG 3 : Patient will increase dexterity in bilateral hand as observed by 9 hole peg test by decreasing time from current by 1.5 seconds to increase performance with I/ADL's. LTG 4 : Patient will increase bilateral UE coordination as observed by box and blocks by increasingamount of blocks from current by 5 to increase performance with I/ADL's. LTG 5 : Patient will decrease fascial restrictions in bilateral arms and neck to decrease tingling during functional activities. LTG 6 : Patient will improve Bilateral UE sensation and/or utilize compensatory techniques for safecompletion of work related tasks as projected. MILTON Conner 03/27/2020 9:40 AM Falls Risk Assessment Age: 0-59 = 0 60-69= 1 > 70= 2 History of Falls: 0 Falls last 6 mo = 0 1 fall Last 6 mo = 1 1-3 falls last 6 mo = 2 Medical History: Parkinsons, CVA,HTN, vertigo, >4 meds, use of assistive device (1pt.for each) Mental Status: A & O x 3 = 0 Disoriented to person, place, or time = 2 [x] INITIAL ASSESSMENT: Date: 03/27/2020 Age: 0 Falls: 0 PMH: 2 Mental: 0 Total: 2 *Patient 4 or younger: Vestibular: Signature: MILTON Conner High Risk for Falls: >8 Intermediate Risk for Falls: 4-8 Low Risk for Falls: <4 * All pediatric patients (age 4 or younger) and vestibular patients will be considered high risk for falls- scoring does not need to be completed - treat as high risk. Interventions Low Risk: Monitor for changes, reassess every three months. Intermediate Risk: Supervision for most activities, direct contact with new activities or equipment, reassess monthly. High Risk: Stand by assitance at all times, reassess monthly. The following patient has been evaluated for occupational therapy services. For therapy to continue, insurance requires physician review of the treatment plan. Please review the attached evaluation and/or summary of the patient's plan of care, and verify that you agree therapy should continue by signing the attached document and sending it back to our office. Thank you for this referral. Physician signature Date documented in this encounter* Lisa Johnson OTR/L - 03/31/2020 10:00 AM EST Occupational Therapy Daily Note Name: Jorge Velasquez : 1960 Diagnosis: B ulnar nerve lesion Visit Information: Onset Date: 01/31/20 OT Insurance Information: [employer] Total # of Visits Approved: 12 Progress Note Counter: 2 Date: 03/31/2020 Time: OT Manual therapy 11 minutes for 1 unit(s), CPT 06509 9:26-9:37 am OT Splint/orthosis fit and training 10 minutes for 1 unit(s), CPT 82701 9:37- 9:47 am OT Therapeutic activities 38 minutes for 2 unit(s), CPT 997275 9:06-9:26 am; 9:47-10:05 am OT Individual Minutes Time In: 905 Time Out: 1005 Minutes: 59 Referring Practitioner: Dr. Low Subjective: The tingling is better because I am not doing as much, but it feels like the numbness is worse when I work with my arms/hands at shoulder height. Pain rating: Pre-treatment pain: Pt denies pain Action for pain: No action necessary. Pain after treatment: Pt denies pain Focus of treatment was on the following: Decreasing fascial restrictions both forearms and decrease sensory symptoms. Objective: Treatment Activity: Modality: Patient was screened for contraindications prior to use of modality. Fluidotherapy at 115 F for 20 minutes while performing fisting motions with BUES and wrist stretches. MFR/Manual: Pt. tolerated soft tissue mobilization and massage of both forearms, wrist and palms with deep pressure through mid forearm. No increased tingling reported. Performed PROM and stretch to bilateral wrist and each digit, both hands in tendon gliding exercises. Fitted pt. with and instructed pt. in wear time and precautions for right wrist cock up splint. Pt.to wear splint at night only and to report any changes in sensory issues. Pt. instructed in and performed BUE stretches while supine position. Pt. to perform stretches 2 x aday. Pt. demonstrates good understanding of HEP and splint. Education/HEP: stretching BUEs, Pt completed 3 reps to demo understanding. Pt with good follow through. Discussed previous HEP: n/a, N/A Comments: Pt. wearing bilateral elbow straps during work tasks. Assessment: Pt tolerated treatment well. Pt. demonstrates good understanding of splint and HEP. Plan: Continue POC JAJA Pelayo/Eduin 03/31/2020 11:57 AM documented in this encounter* Lisa Johnson OTR/Eduin - 04/02/2020 9:00 AM EST Occupational Therapy Daily Note Name: Jorge Velasquez : 1960 Visit Information: Dr. Devante BARAHONA ulnar nerve lesion Onset: 01/31/20 Visits Approved: 12 Visit counter: 3 Date: 04/02/2020 Time: OT Manual therapy 33 minutes for 2 unit(s), CPT 75713 OT Therapeutic activities 23 minutes for 2 unit(s), CPT 82477 OT Individual Minutes Time In: 902 Time Out: 958 Minutes: 56 Subjective: I haven't noticed any change in the numbness and tingling with wearing the right wrist splint. Actually, no real change in either hand since I went to the doctors on 01/31/20. Pain rating: Pre-treatment pain: Pt denies pain Action for pain: No action necessary. Pain after treatment: Pt denies pain Focus of treatment was on the following: Improving sensory skills BUEs and decrease tingling of both hands. Objective: Treatment Activity: Modality: Infrared with intensity at 6 J/cm2 for 44 seconds on BUEs per CTS protocol and BUEs ulnar nerve entrapment protocol at elbow. MFR/Manual: Pt. tolerated bilateral forearm soft tissue mobilization and palmar massage without increased tingling. Gentle finger traction performed ring and little fingers of BUEs. Pt. performed finger blocking exercises for each digit, each hand x 5 reps. Fisting AROM completed for hook, duck bill and flat fist without difficulty. Pt. instructed in and performed ulnar nerve gliding HEP. Provided written/pictorial instructions of HEP. Pt. demonstrates good understanding. Instructed pt. that good follow through for several weeks of time needed for nerve related issues to possibly resolve. Education/HEP: nerve gliding, Pt completed 2-3 reps to demo understanding. Pt with good follow through., Written hand out(s) provided. Discussed previous HEP: no Comments: Pt. to continue to wear splint at night on RUE. Assessment: Pt tolerated treatment well. No significant change in tingling both hands with past 2 treatment sessions thus far. Pt. demonstrates good understanding of splint use and HEP. Plan: Continue POC JAJA Pelayo/Eduin 04/02/2020 11:21 AM documented in this encounter* Lisa Johnson OTR/Eduin - 04/07/2020 9:00 AM EST Occupational Therapy Daily Note Name: Jorge Velasquez : 1960 Diagnosis: B ulnar nerve lesion Visit Information: Onset Date: 01/31/20 OT Insurance Information: [employer] Total # of Visits Approved: 12 Progress Note Counter: 4 Date: 04/07/2020 Time: OT Manual therapy 28 minutes for 2 unit(s), CPT 13532 OT Therapeutic activities 30 minutes for 2 unit(s), CPT 82133 OT Individual Minutes Time In: 09 Time Out: 1000 Minutes: 58 Referring Practitioner: Dr. Low Subjective: I am not experiencing much improvement with the splint on my right hand or with the treatment so far. I sometimes wake up often at night with the tingling, some nights more than others. Pain rating: Pre-treatment pain: Pt denies pain Action for pain: No action necessary. Pain after treatment: Pt denies pain Focus of treatment was on the following: Alleviating numbness and tingling BUEs. Objective: Treatment Activity: Modality: Fluidotherapy at 115 F for 20 minutes BUEs while performing tendon glides of digits. MFR/Manual: Soft tissue mobilization of both forearms, wrist and palms with gentle joint traction at elbow and fingers. Pt. tolerated elbow mobilization with no significant change in tingling. Pt participated in activities to promote ulnar nerve gliding of BUES. Pt. utilized medium sized therapy ball on table to perform UE stretches with nerve gliding from shoulders to hand. Isolated tip to tip pinch performed with pt. reporting tingling in digits 4 & 5 continues. Gentle grasp-release tasks without resistance performed with good strength, but tingling remains. Discussed previous HEP: yes, Pt verbally confirmed compliant with HEP's Comments: Assessment: Pt tolerated treatment well. Pt. continues to experience tingling BUEs with treatment and modalities. Pt. demonstrates good understanding of HEP. Plan: Continue POC. Discuss treatment with physician regarding continued sensory issues. JAJA Pelayo/Eduin 04/07/2020 2:28 PM documented in this encounter* Lisa Johnson OTR/Eduin - 04/14/2020 9:00 AM EST Occupational Therapy Daily Note Name: Jorge Velasquez : 1960 Diagnosis: B ulnar nerve lesion Visit Information: Onset Date: 01/31/20 OT Insurance Information: [employer] Total # of Visits Approved: 12 Canceled Appointment: 1 Progress Note Counter: 5 Date: 04/14/2020 Time: OT Therapeutic activities 60 minutes for 4 unit(s), CPT 51816 OT Individual Minutes Time In: 0900 Time Out: 1000 Minutes: 60 Referring Practitioner: Dr. Low Subjective: I get woken up 2-3 times a night average with my entire hands tingling, but during the day it is just ulnar side of hand and digits 4 & 5 on both hands. Pain rating: Pre-treatment pain: Pt denies pain Action for pain: No action necessary. Pain after treatment: Pt denies pain Focus of treatment was on the following: decreasing tingling both hands and strengthening postural set. Objective: Treatment Activity: Modality: Fluidotherapy at 115 F for 20 minutes with BUEs performing fisting AROM and tendon glides. Soft tissue mobilization of both forearms performed between radius and ulna and around medial elbow. Pt. performed forearm stretches with UEs supported on medium mauritanian therapy ball. Pt. requires cuesfor spinal alignment and not rounding shoulders during activities. Pt. performed strengthening exercises of UE with red theraband including pull backs, pull downs and pull forwards with BUEs while maintaining good alignment. Pt. reports continued tingling in hands. Pt. instructed in and performed red medium resistance theraputty HEP. Provided written handout. Pt. demonstrates good understanding. Discussed with pt. limited progress though trialed several modalities. Pt. agrees with plan to hold t herapy until possible further testing and follow up with physician. Education/HEP: red theraputty HEP. Discussed previous HEP: yes, Pt verbally confirmed compliant with HEP's Comments: Pt. reports tingling B ulnar side of hands, D4 & D5 throughout session. Assessment: Pt tolerated treatment well. Pt. continues to require cues for postural alignment of neck and spine during activities. No significant change in B hand tingling with treatment. Pt. continues to experience waking up episodes at night due to tingling, even with positioning and splint. Pt. demonstrates good understanding and follow through with HEP. Plan: Pt on hold for OT pending possible further diagnostic testing and follow up with physician. Goals: 1. Pt. will be independent with all recommended HEPs. 2. Pt. will report decreased frequency of tingling in BUEs. 3. Pt. will increase dexterity in both hands as observed by 9 hole peg test improvement of 1/5 sec. 4. Pt. will decrease fascial restrictions in B arms and neck to decrease tingling during functionalactivities. 5. Pt. will improve BUE sensation and/or utilize compensatory techniques for safe completion of work tasks. MILTON Pelayo 04/14/2020 10:18 AM documented in this encounterThere may be information available, but it has not been provided by the sender.* Lisa Johnson OTR/L - 04/09/2020 9:00 AM EST Therapy Cancellation/No-show Note Date: 04/09/2020 Patient Name: Jorge Velasquez : 1960 (59 y.o.) Canceled Appointment: 1 Comments: For today's appointment patient: [x] Cancelled [] Rescheduled appointment [] No-show [] Called pt to remind of next appointment Reason given by patient: [] Patient ill [] Conflicting appointment [] No transportation [x] Conflict with work, pt. scheduled for on-site job analysis. [] No reason given [] Other: [x] Pt has future appointments scheduled, no follow up needed [] Pt requests to be on hold. Reason: If > 2 weeks please discuss with therapist. [] Therapist to call pt for follow up Signature: documented in this encounter Advance Directives No Advanced Directives Records FoundDocuments on File Type Date Recorded Patient Zyglo Technician Expl anation ACP-Advance Directive ACP-Power of Pediatric Neurologist Documents on File Type Date Recorded Patient Zyglo Technician Expl anation ACP-Advance Directive ACP-Power of Pediatric Neurologist Latest Code Status on File Code Status Date Activated Date Inactivated Comments Full Code 09/14/2021 1:07 PM Summary Purpose Family History No Family History Records FoundThere may be information available, but it has not been provided by the sender.No Family History Records FoundNo Family History Records Found Chief Complaint Chief Complaint Description Start Date left hip pain Preliminary chief co mplaint data, not yet signed by the author as of Instructions Instruction Description Start Date Patient advised to follow-up with Primary Care Physician for BMI management. Assessments There may be information available, but it has not been provided by the sender. Review of System There may be information available, but it has not been provided by the sender. Additional Source Comments (unrecognized sect ion and content) No Status Records FoundNo Status Records FoundNo Status Records Found INFORMATION SOURCE (unrecogn ized section and content) DATE CREATED AUTHOR 03/31/2020 [facility] DATE CREATED AUTHOR AUTHOR'S ORGANIZ ATION 09/15/2021 [facility] DATE CREATED AUTHOR AUTHOR'S ORGANIZ ATION 06/03/2022 [facility] Reason for Visit (unrecogniz ed section and content) Reason For Visit Description New - 1st visit with practice Preliminary reason f or visit data, not yet signed by the author as of left hip pain Ordered Prescriptions (unrec ognized section and content) Prescription Sig Dispensed Refills Start Date End Da te HYDROcodone-acetaminophen (NORCO) 5-325 MG per tabletIndications:Ventral hernia without obstruction or gangrene Take 1 tablet by mouth every 6 hours as needed for Pain for up to 5 days. 15 tablet 0 09/14/2021 09/19/2021 Scheduled Active and Recently Administ ered Medications (unrecognized section and content) Medication Order 09/12/2021 09/13/2021 09/14/2021 ceFAZolin (ANCEF) 2000 mg in dextrose 5 % 100 mL IVPB (COMPLETED) 2,000 mg, IntraVENous, [employer] TO O.R., 1 dose, On 09/14/21 at 0700, Antimicrobial Indications: Surgical Prophylaxis, Pre-op (day of surgery) 1116 (Given - Provid er: Roderick King MD) ketorolac (TORADOL) injection 30 mg (COMPLETED) Ketorolac is contraindicated in patients with advanced renal impairment and in patients at risk of renal failure due to volume depletion. For 65 years of age and older OR weight less than 50 kg, use 15 mg IV every 6 hours; MAX dose: 60 mg/day. Dose greater than 30 mg must be administered via intramuscular route. 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 If following IV push medication, administer flush at same rate as the IV push. Flush volume is determined by type of infusion therapy being given. For non-viscous solutions use: Peripheral IV = 5 mL Midline or Central Line = 10 mL/lumen For viscous solutions (i.e. blood components, parenteral nutrition, contrast media, or after obtaining blood sample) use: Peripheral IV = 10 mL Midline or Central Line = 20 mL/lumen, Post-op 2100 (Due) sodium chloride flush 0.9 % injection 5-40 mL 5-40 mL, IntraVENous, EVERY 12 HOURS SCHEDULED (2 times per day), First dose on Tue09/14/21 at 1115, Until Discontinued, For Line Patency: Peripheral IV = 5 mL; Midline or Central Line = 10 mL/lumen. If following IV push medication, administer flush at same rate as the IV push. Flush volume is determined by type of infusion therapy being given. For non-viscous solutions use: Peripheral IV = 5 mL Midline or Central Line = 10 mL/lumen For viscous solutions (i.e. blood components, parenteral nutrition, contrast media, or after obtaining blood sample) use: Peripheral IV = 10 mL Midline or Central Line = 20 mL/lumen, PACU only 1115 (Due)2100 (Due) Continuous Medication Order 09/12/2021 09/13/2021 09/14/2021 lactated ringers infusion IntraVENous, at 50 mL/hr, CONTINUOUS, Starting on Tue09/14/21 at 1330, Post-op 1330 (Due) lactated ringers infusion (CANCELED) IntraVENous, at 100 mL/hr, CONTINUOUS, Starting on Tue09/14/21 at 0715, Pre-op (day of surgery) 0810 (New Bag - Prov ider: Steve Nichols RN)1101 (NoRateChange - Provider: Roderick King MD) PRN Medication Order 09/12/2021 09/13/2021 09/14/2021 0.9 % sodium chloride infusion IntraVENous, at 5-250 mL/hr, PRN, if patient receiving piggyback infusions and maintenance fluids are not ordered OR KVO fluids to protect IV site / prevent frequent line interruptions/ long duration, Starting on Tue09/14/21 at 1307, For piggyback infusion, administer at same rate as piggyback for a total of 25 mL. Enter 25 mL into dose field and piggyback rate into rate field of order. If piggyback is infusing at a rate less than 100 mL/hr, enter 25 mL into dose field and 100 mL/hr into rate field of order. For KVO fluids, enter rate of 20 mL/hr or less into rate field of order., Post-op 0.9 % sodium chloride infusion 25 mL, IntraVENous, at 100 mL/hr, PRN, If patient receiving piggyback infusions without ordered maintenance IV fluids or with frequent/long duration piggyback infusions, Starting on Tue09/14/21 at 1048, Administer at the same rate as the piggyback being infused., PACU only fentaNYL (SUBLIMAZE) injection 25 mcg (COMPLETED) 25 mcg, IntraVENous, EVERY 5 MIN PRN, 2 doses, Starting on Tue09/14/21 at 1048, Until Tue09/14/21 at 1239, Pain Moderate (4-6), For Phase I. If Phase II oral narcotics have been administered in the last 60 minutes, do not administer IV narcotics unless specifically approved by provider., PACU only 1229 (Given - Provid er: Sandra Dhillon RN)1239 (Given - Provider: Sandra Dhillon RN) hydrALAZINE (APRESOLINE) injection 10 mg(Linked Group 1) 10 mg, IntraVENous, EVERY 15 MIN PRN, 2 doses, Starting on Tue09/14/21 at 1048, Until Discontinued, High Blood Pressure, for SBP greater than 180 mmHg for 2 consecutive measurements taken from different sites, If heart rate is greater than 60 bpm, hold hydralazine and use labetalol if ordered, otherwise contact provider. Inform provider if SBP is still greater than 180 mmHg 10 minutes after second antihypertensive dose is administered., PACU only HYDROmorphone (DILAUDID) injection 0.5 mg HYDROmorphone (DILAUDID) 1.5mg IV is equivalent to morphine 10mg IV, 0.5 mg, IntraVENous, EVERY 5 MIN PRN, 2 doses, Starting on Tue09/14/21 at 1048, Until Discontinued, Pain Severe (7-10), For Phase I. If Phase II oral narcotics have been administered in the last 60 minutes, do not administer IV narcotics unless specifically approved by provider., PACU only labetalol (NORMODYNE;TRANDATE) injection 10 mg(Linked Group 1) 10 mg, IntraVENous, EVERY 15 MIN PRN, 2 doses, Starting on Tue09/14/21 at 1048, Until Discontinued, High Blood Pressure, for SBP greater than 180 mmHg for 2 consecutive measurements taken from different sites., If heart rate is 60 bpm or less hold labetalol and use hydralazine if ordered, otherwise contact provider. Inform provider if SBP is still greater than 180 mmHg, 10 minutes after second antihypertensive dose is administered., PACU only metoclopramide (REGLAN) injection 10 mg 10 mg, IntraVENous, ONCE PRN, 1 dose, Starting on Tue09/14/21 at 1048, Until Tue09/14/21 at 2359, Nausea, Secondary antiemetic therapy., PACU only morphine (PF) injection 1 mg 1 mg, IntraVENous, EVERY 3 HOURS PRN, Starting on Tue09/14/21 at 1307, Until Discontinued, Pain Severe (7-10), If oral and IV narcotics ordered, use oral first and only use IV if oral is ineffective or cannot take oral. Do Not give oral and IV within 1 hour of each other unless specifically ordered., Post-op ondansetron (ZOFRAN) injection 4 mg 4 mg, IntraVENous, ONCE PRN, 1 dose, Starting on Tue09/14/21 at 1048, Until Tue09/14/21 at 2359, Nausea, Initial antiemetic therapy., PACU only ondansetron (ZOFRAN) injection 4 mg(Linked Group 2) 4 mg, IntraVENous, EVERY 6 HOURS PRN, Starting on Tue09/14/21 at 1307, Until Discontinued, Nausea, Vomiting, Administer if oral route cannot be used., Post-op oxyCODONE (ROXICODONE) immediate release tablet 5 mg 5 mg, Oral, ONCE PRN, 1 dose, Starting on Tue09/14/21 at 1048, Until Tue09/14/21 at 2359, Pain Moderate (4-6), Pain Severe (7-10), PHASE II, PACU only promethazine (PHENERGAN) tablet 12.5 mg(Linked Group 2) 12.5 mg, Oral, EVERY 6 HOURS PRN, Starting on Tue09/14/21 at 1307, Until Discontinued, Nausea, Vomiting, Post-op sodium chloride 0.9 % irrigation (COMPLETED) CONTINUOUS PRN, Starting on Tue09/14/21 at 1120, Intra-op 1120 (New Bag - Prov ider: Antonietta Robles MD - Comment: PRN ON STERILE FIELD) sodium chloride flush 0.9 % injection 5-40 mL 5-40 mL, IntraVENous, PRN, Starting on Tue09/14/21 at 1307, Until Discontinued, Line Care, After every IV line use, For Line Patency: Peripheral IV = 5 mL; Midline or Central Line = 10 mL/lumen. If following IV push medication, administer flush at same rate as the IV push. Flush volume is determined by type of infusion therapy being given. For non-viscous solutions use: Peripheral IV = 5 mL Midline or Central Line = 10 mL/lumen For viscous solutions (i.e. blood components, parenteral nutrition, contrast media, or after obtaining blood sample) use: Peripheral IV = 10 mL Midline or Central Line = 20 mL/lumen, Post-op sodium chloride flush 0.9 % injection 5-40 mL 5-40 mL, IntraVENous, PRN, Starting on Tue09/14/21 at 1048, Until Discontinued, Line Care, After every IV line use, For Line Patency: Peripheral IV = 5 mL; Midline or Central Line = 10 mL/lumen. If following IV push medication, administer flush at same rate as the IV push. Flush volume is determined by type of infusion therapy being given. For non-viscous solutions use: Peripheral IV = 5 mL Midline or Central Line = 10 mL/lumen For viscous solutions (i.e. blood components, parenteral nutrition, contrast media, or after obtaining blood sample) use: Peripheral IV = 10 mL Midline or Central Line = 20 mL/lumen, PACU only traMADol (ULTRAM) tablet 50 mg 50 mg, Oral, EVERY 6 HOURS PRN, Starting on Tue09/14/21 at 1307, Until Discontinued, Pain Mild (1-3), Pain Moderate (4-6), Pain Severe (7-10), Post-op No Frequency Medication Order 09/12/2021 09/13/2021 09/14/2021 lactated ringers infusion Starting on Tue09/14/21 at 1242, For 1 dose, Sandra Dhillon: cabinet override 1245 (Due) Linked Groups Order Group 1: labetalol (NORMODYNE;TRANDATE) injection 10 mgJump to med 10 mg, IntraVENous, EVERY 15 MIN PRN, 2 doses, Starting on Tue09/14/21 at 1048, Until Discontinued, High Blood Pressure, for SBP greater than 180 mmHg for 2 consecutive measurements taken from different sites.
If heart rate is 60 bpm or less hold labetalol and use hydralazine if ordered, otherwise contact provider. Inform provider if SBP is still greater than 180 mmHg, 10 minutes after second antihypertensive dose is administered.
PACU only Or hydrALAZINE (APRESOLINE) injection 10 mgJump to med 10 mg, IntraVENous, EVERY 15 MIN PRN, 2 doses, Starting on Tue09/14/21 at 1048, Until Discontinued, High Blood Pressure, for SBP greater than 180 mmHg for 2 consecutive measurements taken from different sites
If heart rate is greater than 60 bpm, hold hydralazine and use labetalol if ordered, otherwise contact provider. Inform provider if SBP is still greater than 180 mmHg 10 minutes after second antihypertensive dose is administered.
PACU only Group 2: promethazine (PHENERGAN) tablet 12.5 mgJump to med 12.5 mg, Oral, EVERY 6 HOURS PRN, Starting on Tue09/14/21 at 1307, Until Discontinued, Nausea, Vomiting, Post-op Or ondansetron (ZOFRAN) injection 4 mgJump to med 4 mg, IntraVENous, EVERY 6 HOURS PRN, Starting on Tue09/14/21 at 1307, Until Discontinued, Nausea, Vomiting
Administer if oral route cannot be used.
Post-op Care Teams (unrecognized sec tion and content) [employer] Relationship Specialty Start Date End Date Mercedes Arellano [address] [place] [address] PCP - General Nurse Practitioner 03/25/20 FOR RECORDS PERTAINING TO PATIENTS WHO ARE OR HAVE BEEN ENROLLED IN A CHEMICAL DEPENDENCY/SUBSTANCEABUSE PROGRAM, SOME INFORMATION MAY BE OMITTED. This clinical summary was aggregated from multiple sources. Caution should be exercised in using it in the provision of clinical care. This summary normalizes information from multiple sources, and as a consequence, information in this document may materially change the coding, format and clinical context of patient data. In addition, data may be omitted in some cases. CLINICAL DECISIONS SHOULD BE BASED ON THE PRIMARY CLINICAL RECORDS. [employer] [facility]. provides no warranty or guarantee of the accuracy or completeness of information in this document.
[2024-03-20 23:52] LABS: Absolute Lymphocyte Count 2.84 X10^3/uL (0.83-4.51); Absolute Neutrophil Count 4.6 X10^3/uL (2.0-7.7); Basophil# 0.06 X10^3/uL; Basophil% 0.7 % (0-1); Eosinophil# 0.07 X10^3/uL; Eosinophils% 0.9 % (0-5); Hematocrit 44.9 % (40-54); Hemoglobin 14.6 g/dL (13.0-16.5); Lymphocyte # 2.84 X10^3/ul (0.83-4.51); Lymphocyte % 34.7 % (19-41); Mean Corp Hgb Conc 32.5 g/dL (32-36); Mean Corpuscular Volume 89.3 fL (80-94); Mean Platelet Vol. 9.9 fl (6.2-12.0); Monocyte# 0.54 X10^3/uL; Monocyte% 6.6 % (0-10); NRBC Flagged by Analyzer 0 % (0-5); Neutrophil # 4.58 X10^3/uL (2.7-7.7); Neutrophil % 55.9 % (47-70); Platelet Count 260 K/mm3 (150-450); RBC Distribution Width CV 13.3 % (11.6-14.6); RBC Distribution Width SD 43.5 fl (35.1-43.9); Red Blood Count 5.03 M/mm3 (4.6-6.2); White Blood Count 8.2 K/mm3 (4.4-11.0)
[2024-03-21 00:27] LABS: ALB/GLOB Ratio 1.2 RATIO (0.9-2.4); AST(SGOT) 34 U/L (15-37); Alanine Aminotransfer ALT/SGPT 62 U/L (16-61); Albumin, Serum 3.7 g/dL (3.2-5.0); Alkaline Phosphatase 145 U/L (45-117); Anion Gap 9 (5-15); BUN 26 mg/dL (7-18); BUN/Creat Ratio 17.4 RATIO (10-20); Chloride 106 mmol/L (98-107); Cholesterol 200 mg/dL (200); Creatinine, Serum 1.49 mg/dL (0.70-1.30); EST Glomerular Filtration Rate 51 mL/min (>60); Est Glom Filt Rate - Afr Amer 61 mL/min (>60); Globulin 3.2 g/dL (2.2-4.2); Glucose 236 mg/dL (74-106); Hemoglobin A1c 11.3 % (3.8-5.6); High Density Lipoprotein 39 mg/dL; Potassium 4.3 mmol/L (3.5-5.1); Protein, Total 6.9 g/dL (6.4-8.2); Sodium Level 138 mmol/L (136-145); Triglycerides 657 mg/dL; Troponin-I HS 5 pg/mL (3.0-78.0)
[2024-03-22 05:07] LABS: CRP, High Sensitivity 2.96 mg/L (0.00-3.00)
== END | disposition home or self-care (01) ==
PROVIDERS: Visit Provider Nurse Practitioner
DX: E11.65 Type 2 diabetes mellitus with hyperglycemia (principal); I10 Essential (primary) hypertension; I25.119 Atherosclerotic heart disease of native coronary artery with unspecified angina pectoris; E78.1 Pure hyperglyceridemia
CPT/HCPCS: 80053; 80061; 83036; 84484; 85025; 86141

== ENCOUNTER → 2024-05-09 | Outpatient (CLI) | payer OTHER, BC, SELFPAY ==
[2024-05-09 20:35] LABS: Absolute Lymphocyte Count 2.43 X10^3/uL (0.83-4.51); Basophil# 0.07 X10^3/uL; Eosinophils% 1.4 % (0-5); Hematocrit 45.1 % (40-54); Hemoglobin 14.9 g/dL (13.0-16.5); Lymphocyte # 2.43 X10^3/ul (0.83-4.51); Lymphocyte % 33.5 % (19-41); Mean Corpuscular Hgb 29.2 pg (27.0-32.0); Mean Corpuscular Volume 88.3 fL (80-94); Mean Platelet Vol. 9.8 fl (6.2-12.0); Monocyte# 0.61 X10^3/uL; Monocyte% 8.4 % (0-10); NRBC Flagged by Analyzer 0 % (0-5); Neutrophil # 4.01 X10^3/uL (2.7-7.7); Neutrophil % 55.3 % (47-70); Platelet Count 273 K/mm3 (150-450); RBC Distribution Width CV 13.2 % (11.6-14.6); Red Blood Count 5.11 M/mm3 (4.6-6.2); White Blood Count 7.3 K/mm3 (4.4-11.0)
[2024-05-09 20:54] LABS: ALB/GLOB Ratio 1.2 RATIO (0.9-2.4); AST(SGOT) 22 U/L (15-37); Alanine Aminotransfer ALT/SGPT 43 U/L (16-61); Alkaline Phosphatase 78 U/L (45-117); Anion Gap 7 (5-15); BUN 29 mg/dL (7-18); BUN/Creat Ratio 14.3 RATIO (10-20); Calcium,Total 9.6 mg/dL (8.5-10.1); Chloride 107 mmol/L (98-107); Cholesterol 157 mg/dL (200); Creatinine, Serum 2.03 mg/dL (0.70-1.30); EST Glomerular Filtration Rate 35 mL/min (>60); Est Glom Filt Rate - Afr Amer 43 mL/min (>60); Globulin 3.2 g/dL (2.2-4.2); Glucose 135 mg/dL (74-106); High Density Lipoprotein 48 mg/dL; PSA,Total- Diagnostic 2.99 ng/mL (0.0-4.0); Potassium 4.5 mmol/L (3.5-5.1); Protein, Total 7.2 g/dL (6.4-8.2); Sodium Level 138 mmol/L (136-145); Triglycerides 137 mg/dL; Very Low Density Lipoprotein 27 mg/dL (5-40)
[2024-05-09 21:20] LABS: Hemoglobin A1c 8.4 % (3.8-5.6)
== END | disposition home or self-care (01) ==
LOC: LABSPEC 20:28
PROVIDERS: Referring Provider Nurse Practitioner; Visit Provider Nurse Practitioner
DX: I10 Essential (primary) hypertension (principal); E11.65 Type 2 diabetes mellitus with hyperglycemia; E78.2 Mixed hyperlipidemia; R35.0 Frequency of micturition
CPT/HCPCS: 80053; 80061; 83036; 84153; 85025

== ENCOUNTER → 2024-11-02 | Outpatient (CLI) | payer OTHER, BC, SELFPAY ==
--- NOTE | 2024-11-02 13:37 | RAD_ITS ---
PROCEDURE: L/S SPINE COMP/W BENDING VIEWS 11/02/2024 REASON FOR EXAM: LOW BACK PAIN TECHNIQUE: Five view(s) of the thoracic and lumbar spine. FINDINGS: Satisfactory curvature. Multilevel endplate degenerative change and disc disease of the lumbar spine, most significant at L2-3. No acute fracture or significant dynamic instability. Calcified atherosclerotic disease of the aorta. RAD/L/S Spine Comp/w Bending Views IMPRESSION: No acute fracture or significant dynamic instability. Reading [facility]
== END | disposition home or self-care (01) ==
PROVIDERS: PCP Nurse Practitioner; Referring Provider Nurse Practitioner; Visit Provider Nurse Practitioner
DX: M54.50 Low back pain, unspecified (principal)
CPT/HCPCS: 72114

== ENCOUNTER → 2025-05-09 | Outpatient (CLI) | payer OTHER, SELFPAY ==
--- OUTSIDE RECORDS SUMMARY | 2025-05-09 21:21 | XMS RPT_ITS | CCD ---
Author Organization [facility] Care Team Providers Care Blueprint Developer Name Role Phone Kareem Arellanoa Primary Care Provider [phone] Libardo Patel MD Unavailable Kristian Mercedes Primary Care Provider VANDANA DIAZ Referring Unavailable ARELLANO, MERCEDES Primary Care Unavailable ANTONIETTA ROBLES Admitting Unavailable ANTONIETTA ROBLES Attending Unavailable ARELLANO, MERCEDES Primary Care Unavailable ARELLANO, MERCEDES L Primary Care Unavailable QUIN COOPER Attending Unava ilable ARELLANO, MERCEDES L Primary Care Unavailable ARELLANO, MERCEDES Primary Care Unavailable MATIAS HARRELL MD Attending Unavailable Arellano TV PRODUCTION ASSISTANT-C, Mercedes Attending Provider Arellano TV PRODUCTION ASSISTANT-C, Mercedes Primary Care Provider Arellano TV PRODUCTION ASSISTANT-C, Mercedes Referring Provider [phone] Torri Pompa Attending Provider Arellano TV PRODUCTION ASSISTANT, Mercedes Referring Unavailable Arellano TV PRODUCTION ASSISTANT, Mercedes Primary Care Unavailable EmmyJesusyn Attending Unavailable Arellano TV PRODUCTION ASSISTANT, Mercedes Primary Care Unavailable EmmyJesusyn Attending Unavailable EmmyRehanTorri Referring Unavailable Arellano TV PRODUCTION ASSISTANT, Mercedes Attending Unavailable Arellano TV PRODUCTION ASSISTANT, Mercedes Referring Unavailable Arellano TV PRODUCTION ASSISTANT, Mercedes Primary Care Unavailable Arellano TV PRODUCTION ASSISTANT, Mercedes Attending Unavailable Arellano TV PRODUCTION ASSISTANT, Mercedes Attending Unavailable Arellano TV PRODUCTION ASSISTANT, Mercedes Referring Unavailable Arellano TV PRODUCTION ASSISTANT, Mercedes Primary Care Unavailable EmmyJesusyn Attending Unavailable Emmy, Torri Referring Unavailable Allergies Allergy Classification Reported Allergen(s) Allergy Type Date of Onset Reaction(s) Facility (6 sources) Other Propensity to adverse reactions 5 Hives, Swelling [facility] [place], [place] (1 source) Bee/Wasp/Ant venom; Translations: [BEE STINGS] allergy to substance 0 [facility] [place] [facility] Work Phone: (1 source) BEE STING; Translations: [BEE STING] Propensity to adverse reactions (disorder) 0 [facility] Other [place] [facility] NEGATED: Highlighted row has been ruled out! (1 source) Other Propensity to adverse reactions 5 Hives, Swelling [employer] Medications Current Medications Medication Drug Class(es) Dates Sig (Normalized) Sig (Original) acetaminophen 325 mg / HYDROcodone bitartrate 5 mg oral tablet (1 source) Opioid Agonist Start: 09-14-2021 End: 09-19-2021 take 1 tablet by mouth every six hours as needed for pain HYDROcodone-acet aminophen (NORCO) 5-325 MG per tablet Indications: Ventral hernia without obstruction or gangrene Take 1 tablet by mouth every 6 hours as needed for Pain for up to 5 days. 15 tablet 0 09/14/2021 09/19/2021 Active amLODIPine 5 mg oral tablet (2 sources) Dihydropyridine Calcium Channel Yamile Start: 03-20-2024 take 1 tablet by mouth once daily Amlodipine 5 mg tablet Active 5 mg PO daily March 20, 2024 12:00am aspirin 81 mg delayed release oral tablet (4 sources) Platelet Aggregation Inhibitor, Nonsteroidal Anti-inflammatory Drug Start: 06-06-2018 take 1 tablet by mouth once daily Aspirin (Adult Aspirin Regimen) 81 mg tablet,delayed release (DR/EC) Active 81 mg PO DAILY June 06, 2018 1:00am Blood-Glucose Meter (Accu-Chek Guide Glucose Meter) misc (2 sources) Start: 03-20-2024 Blood-Glucose Meter (Accu-Chek Guide Glucose Meter) misc Active 0 .Route March 20, 2024 12:00am As directed calcium chloride 0.0014 meq/ml / potassium chloride 0.004 meq/ml / sodium chloride 0.103 meq/ml / sodium lactate 0.028 meq/ml injectable solution (2 sources) Start: 09-14-2021 IntraVENous, at 50 mL/hr, CONTINUOUS, Starting on Tue09/14/21 at 1330, Post-op Start: 09-14-2021 End: 09-14-2021 lactated ringers infusion cholecalciferol 0.125 mg oral capsule (4 sources) Vitamin D Start: 06-16-2021 take 1 capsule by mouth once daily Cholecalciferol (Vitamin D3) 125 mcg (5,000 unit) capsule Active 125 ug PO DAILY June 16, 2021 1:00am fenofibrate 54 mg oral tablet (20 sources) Peroxisome Proliferator Receptor alpha Agonist Start: 09-27-2024 take 1 tablet by mouth once daily Fenofibrate 54 mg tablet Active 54 mg PO daily September 27, 2024 12:00am Start: 04-02-2024 End: 09-27-2024 take 1 tablet by mouth once daily Fenofibrate 160 mg tablet Discontinued 160 mg PO daily April 02, 2024 1:00am September 27, 2024 4:25pm Start: 03-21-2024 End: 04-02-2024 take 1 capsule by mouth once daily Fenofibrate Micronized 67 mg capsule Discontinued 67 mg PO daily March 21, 2024 12:00am April 02, 2024 2:21pm Start: 01-26-2022 End: 03-21-2024 take 1 tablet by mouth once daily Fenofibrate 54 mg tablet Discontinued 54 mg PO DAILY May 10, 2023 5:02pm March 21, 2024 9:31am Start: 01-21-2022 End: 01-26-2022 take 1 capsule by mouth once daily Fenofibrate 150 mg capsule Discontinued 150 mg PO DAILY January 21, 2022 12:00am January 26, 2022 11:33am glimepiride 2 mg oral tablet (5 sources) Sulfonylurea Start: 05-12-2023 End: 05-09-2024 take 1 tablet by mouth once daily at breakfast Glimepiride 2 mg tablet Active 2 mg PO EVERY MORNING May 09, 2024 4:36pm administer with breakfast 1 ml HYDROmorphone hydrochloride 1 mg/ml cartridge (1 source) Opioid Agonist Start: 09-14-2021 HYDROmorphone (DILAUDID) injection 0.5 mg labetalol (NORMODYNE;TRANDATE ) injection 10 mg (1 source) Start: 09-14-2021 labetalol (NORMODYNE;TRANDAT E) injection 10 mg lansoprazole 30 mg delayed release oral capsule (20 sources) Proton Pump Inhibitor Start: 07-13-2023 End: 07-30-2024 take 1 capsule by mouth twice daily Lansoprazole 30 mg capsule,delayed release(DR/EC) Active 30 mg PO TWICE A DAY 180 July 30, 2024 9:14pm Start: 04-23-2020 LANSOPRAZOLE 3 0 MG TBDD one tablet twice a day LANSOPRAZOLE [id number] Librado Patel MD Start: 07-16-2019 End: 05-10-2023 take 1 capsule by mouth twice daily Lansoprazole 30 mg capsule,delayed release(DR/EC) Discontinued 30 mg PO TWICE A DAY 180 May 18, 2022 6:23pm May 10, 2023 4:59pm Start: 06-06-2019 End: 07-16-2019 take 1 capsule by mouth once daily Lansoprazole 30 mg capsule,delayed release(DR/EC) Discontinued 30 mg PO DAILY 90 June 06, 2019 6:37pm July 16, 2019 3:36pm 2 ml metoclopramide 5 mg/ml prefilled syringe [...] oxyCODONE (ROXICODONE) immediate release tablet 5 mg predniSONE 20 mg oral tablet (6 sources) Start: 11-01-2024 take 2 tablets by mouth once daily Prednisone 20 mg tablet Active 40 mg PO DAILY November 01, 2024 12:00am Start: 10-17-2020 End: 01-16-2021 take 2 tablets by mouth once daily Prednisone 20 mg tablet Discontinued 40 mg PO DAILY October 17, 2020 12:00am January 16, 2021 4:03pm Start: 10-17-2020 End: 01-16-2021 take 40 mg by mouth once daily Prednisone Discontinued 40 MG PO DAILY October 16, 2020 11:00pm January 16, 2021 3:03pm Promethazine (1 source) Phenothiazine Start: 09-14-2021 promethazine (PHENERGAN) tablet 12.5 mg 5 ml [...] for Sleep 90 tablet 1 12/24/2014 Suspended amoxicillin 875 mg / clavulanate 125 mg oral tablet (3 sources) Penicillin-class Antibacterial Start: 05-10-2023 End: 03-20-2024 Amoxicillin-Pot Clavulanate 875-125 mg tablet Discontinued 1 {tbl} PO TWICE A DAY May 10, 2023 1:00am March 20, 2024 4:01pm Start: 05-10-2023 take 1 tablet by stacia th twice daily Amoxicillin-Pot Clavulanate Active 1 TABLET PO TWICE A DAY May 10, 2023 12:00am 24 hr buPROPion hydrochloride 150 mg extended release oral tablet (7 sources) Aminoketone Start: 09-02-2015 take 1 tablet by mouth once daily in the morning buPROPion (WELLBUTRIN XL) 150 MG XL tablet Indications: Depression Take 1 tablet by mouth every morning 90 tablet 1 09/02/2015 Suspended canagliflozin 300 mg oral tablet (18 sources) Sodium-Glucose Cotransporter 2 Inhibitor Start: 06-06-2018 End: 06-16-2021 take 1 tablet by mouth once daily Canagliflozin (Invokana) 300 mg tablet Discontinued 300 mg PO DAILY June 05, 2020 6:08pm June 16, 2021 6:28pm cyclobenzaprine hydrochloride 5 mg oral tablet (5 sources) Muscle Relaxant Start: 10-17-2020 End: 10-17-2020 take 1-2 tablets by mouth every eight hours as needed for muscle spasms Cyclobenzaprine 5 mg tablet Discontinued 5 mg PO THREE TIMES A DAY as needed for muscle spasm October 17, 2020 12:00am October 17, 2020 4:33pm may take 1-2 qvery 8 hrs as needed Start: 04-23-2020 CYCLOBENZAPRIN E HCL 10 MG TABS one tablet three times a day CYCLOBENZAPRINE HCL [id number] Librado Patel MD dapagliflozin 10 mg oral tablet (12 sources) Sodium-Glucose Cotransporter 2 Inhibitor Start: 07-06-2021 End: 05-09-2024 take 1 tablet by mouth once daily Dapagliflozin Propanediol (Farxiga) 10 mg tablet Discontinued 10 mg PO DAILY May 10, 2023 5:02pm May 09, 2024 4:38pm 0.5 ml dulaglutide 1.5 mg/ml auto-injector (9 sources) GLP-1 Receptor Agonist Start: 01-20-2022 End: 03-21-2024 Dulaglutide (Trulicity) 0.75 mg/0.5 mL pen injector Discontinued 0.75 mg SC EVERY WEEK 6.5 May 18, 2022 6:23pm March 21, 2024 9:31am esomeprazole 40 mg delayed release oral capsule (15 sources) Proton Pump Inhibitor Start: 09-02-2015 End: 06-06-2019 take 1 capsule by mouth once daily Esomeprazole Magnesium (Nexium) 40 mg capsule,delayed release(DR/EC) Discontinued 40 mg PO DAILY June 06, 2018 5:25pm June 06, 2019 6:30pm 2 ml fentaNYL 0.05 mg/ml injection (1 source) Opioid Agonist Start: 09-14-2021 End: 09-14-2021 fentaNYL (SUBLIMAZE) injection 25 mcg fluticasone propionate 0.05 mg/actuat metered dose nasal spray (20 sources) Corticosteroid Start: 06-06-2018 End: 05-18-2022 Fluticasone Propionate Active 1 SPRAY INTRANASAL DAILY 18.2 May 18, 2022 5:24pm Start: 09-02-2015 End: 05-18-2022 Fluticasone Propionate 50 mc g/actuation spray,suspension Discontinued 1 NMA INTRANASAL DAILY 18.2 June 16, 2021 6:29pm May 18, 2022 6:25pm hydrOXYzine hydrochloride 25 mg oral tablet (7 sources) Antihistamine take 1 tablet by mouth three times daily as needed hydrOXYzine (ATARAX) 25 MG tablet Take 25 mg by mouth 3 times daily as needed for Itching 0 Suspended 1 ml ketorolac tromethamine 30 mg/ml cartridge (1 source) Nonsteroidal Anti-inflammatory Drug, Cyclooxygenase Inhibitor Start: 09-15-19 End: 09-15-19 ketorolac (TORADOL) injection 30 mg lisinopril 20 mg oral tablet (20 sources) Angiotensin Converting Enzyme Inhibitor Start: 06-06-19 End: 06-17-19 21 take 1 tablet by mouth once daily Lisinopril 20 mg tablet Discontinued 20 mg PO DAILY June 05, 2020 6:09pm June 17, 2020 11:49am Start: 09-02-2015 take 1 tablet by stacia th twice daily lisinopril (PRINIVIL;ZESTRIL) 20 MG tablet Take 1 tablet by mouth 2 times daily 90 tablet 1 09/02/2015 Suspended losartan potassium 50 mg oral tablet (20 sources) Angiotensin 2 Receptor Yamile Start: 10-17-2020 End: 05-09-2024 take 1 tablet by mouth once daily Losartan 50 mg tablet Discontinued 50 mg PO DAILY May 10, 2023 5:02pm May 09, 2024 4:38pm metFORMIN hydrochloride 1000 mg oral tablet (20 sources) Biguanide Start: 06-06-2018 End: 05-09-2024 take 1 tablet by mouth twice daily Metformin 1,000 mg tablet Discontinued 1000 mg PO TWICE A DAY 180 May 10, 2023 5:02pm May 09, 2024 4:38pm Start: 09-02-2015 take 1 tablet by stacia twice daily at mealtime metFORMIN (GLUCOPHAGE) 500 MG tablet Indications: Type 2 diabetes mellitus without complication (HCC) Take 1 tablet by mouth 2 times daily (with meals) 180 tablet 1 09/02/2015 Suspended methocarbamol 750 mg oral tablet (20 sources) Muscle Relaxant Start: 06-16-2021 End: 05-09-2024 take 1 tablet by mouth twice daily as needed for pain Methocarbamol 750 mg tablet Discontinued 750 mg PO TWICE A DAY as needed for muscle pain 180 May 10, 2023 5:02pm May 09, 2024 4:38pm Start: 10-17-2020 End: 06-16-2021 take 1 tablet by mouth three times daily as needed Methocarbamol 750 mg tablet Discontinued 750 mg PO THREE TIMES A DAY as needed January 16, 2021 4:03pm June 16, 2021 6:31pm Start: 03-28-2020 End: 06-05-2020 take 1 tablet by mouth every eight hours as needed for muscle spasms and pain Methocarbamol 750 mg tablet Discontinued 750 mg PO Q8H as needed for muscle spasm and pain 60 March 28, 2020 1:00am June 05, 2020 5:58pm naproxen 500 mg oral tablet (20 sources) Nonsteroidal Anti-inflammatory Drug Start: 04-23-2020 EC-NAPROXEN 500 M G TBEC one tablet twice a day NAPROXEN [id number] Librado Patel MD Start: 09-02-2015 End: 01-16-2021 take 1 tablet by mouth twice daily Naproxen 500 mg tablet Discontinued 500 mg PO TWICE A DAY 180 June 05, 2020 6:09pm January 16, 2021 4:03pm pioglitazone 30 mg oral tablet (7 sources) Peroxisome Proliferator Receptor alpha Agonist, Peroxisome Proliferator Receptor gamma Agonist, Thiazolidinedione Start: 09-02-2015 take 1 tablet by mouth once daily pioglitazone (ACTOS) 30 MG tablet Indications: Type 2 diabetes mellitus without complication (HCC) Take 1 tablet by mouth daily 90 tablet 1 09/02/2015 Suspended sildenafil 100 mg oral tablet (4 sources) Phosphodiesterase 5 Inhibitor Start: 02-19-2019 End: 05-10-2023 Sildenafil 100 mg tablet Discontinued 100 mg PO DAILY as needed for sexual activity February 19, 2019 12:00am May 10, 2023 4:59pm administer 30 minutes to 4 hours before activity simvastatin 40 mg oral tablet (20 sources) HMG-CoA Reductase Inhibitor Start: 04-23-2020 SIMVASTATIN 40 MG TABS one tablet a day SIMVASTATIN [id number] Librado Patel MD Start: 06-06-2018 End: 05-09-2024 take 1 tablet by mouth at bedtime Simvastatin 40 mg tablet Discontinued 40 mg PO AT BEDTIME May 10, 2023 5:02pm May 09, 2024 4:38pm Start: 09-02-2015 take 1 tablet by stacia once daily simvastatin (ZOCOR) 20 MG tablet Indications: Hyperlipidemia, unspecified hyperlipidemia Take 1 tablet by mouth nightly 90 tablet 1 09/02/2015 Suspended tamsulosin hydrochloride 0.4 mg oral capsule (15 sources) alpha-Adrenergic Yamile Start: 01-20-2022 End: 05-09-2024 take 1 capsule by mouth at bedtime Tamsulosin 0.4 mg capsule Discontinued 0.4 mg PO AT BEDTIME May 18, 2022 2:48pm May 18, 2022 6:25pm traMADol hydrochloride 50 mg oral tablet (1 source) Opioid Agonist Start: 09-14-2021 take 50 mg by mouth every six hours as needed 50 mg, Oral, EVERY 6 HOURS PRN, Starting on Tue09/14/21 at 1307, Until Discontinued, Pain Mild (1-3), Pain Moderate (4-6), Pain Severe (7-10), Post-op valACYclovir 1000 mg oral tablet (6 sources) Herpesvirus Nucleoside Analog DNA Polymerase Inhibitor, Herpes Simplex Virus Nucleoside Analog DNA Polymerase Inhibitor, Herpes Zoster Virus Nucleoside Analog DNA Polymerase Inhibitor Start: 11-01-2024 End: 11-08-2024 Valacyclovir 1 gram tablet Discontinued 1000 mg PO THREE TIMES A DAY 10 12November 01, 2024 12:00am November 07, 2024 12:00am November 08, 2024 12:08am Start: 02-19-2019 End: 02-26-2019 Valacyclovir 1 gram tablet Discontinued 1000 mg PO THREE TIMES A DAY 10 12February 19, 2019 12:00am February 25, 2019 12:00am February 26, 2019 12:08am Start: 02-19-2019 End: 02-26-2019 take 1000 mg by mouth three times daily Valacyclovir Discontinued 1000 MG PO THREE TIMES A DAY 10 12February 18, 2019 11:00pm February 25, 2019 11:08pm Problems Active Problems Problem Classification Problem Date Documented Date Episodic/Chronic Abdominal hernia (6 sources) Hernia of anterior abdominal wall; Translations: [Ventral hernia without obstruction or gangrene] Onset: 07-24-2021 Episodic Abdominal pain (4 sources) Left lower quadrant pain; Translations: [Left lower quadrant pain] 06-17-2021 Episodic Acute cerebrovascular disease (2 sources) Cerebrovascular accident; Translations: [Cerebral infarction, unspecified] 03-21-2024 Chronic Anxiety disorders (7 sources) Anxiety; Translations: [Anxiety disorder, unspecified] Onset: 11-21-2014 11-21-2014 Chronic Coronary atherosclerosis and other heart disease (2 sources) Cardiac chest pain; Translations: [Atherosclerotic heart disease of [place] coronary artery with unspecified angina pectoris] 03-20-2024 Chronic Diabetes mellitus with complications (2 sources) Type 2 diabetes mellitus with hypoglycemia with coma; Translations: [Type 2 diabetes mellitus with hyperglycemia] Onset: 05-22-2022 Chronic Diabetes mellitus without complication (7 sources) Diabetes mellitus; Translations: [Type 2 diabetes mellitus without complications] Onset: 11-21-2014 11-21-2014 Chronic Disorders of lipid metabolism (16 sources) Hyperlipidemia; Translations: [Hyperlipidemia, unspecified] Onset: 11-21-2014 11-21-2014 Chronic Esophageal disorders (7 sources) Gastroesophageal reflux disease; Translations: [Gastro-esophageal reflux disease without esophagitis] Onset: 11-21-2014 11-21-2014 Chronic Essential hypertension (13 sources) Hypertensive disorder; Translations: [Essential (primary) hypertension] Onset: 11-21-2014 11-21-2014 Chronic Genitourinary symptoms and ill-defined conditions (6 sources) Retention of urine; Translations: [Retention of urine, unspecified] 01-20-2022 Episodic Mood disorders (11 sources) Depressive disorder; Translations: [Depression] Onset: 11-21-2014 11-21-2014 Chronic Nutritional deficiencies (4 sources) Vitamin D deficiency; Translations: [Vitamin D deficiency, unspecified] 06-17-2021 Chronic Other male genital disorders (5 sources) Male erectile dysfunction, unspecified; Translations: [Erectile dysfunction] Onset: 05-22-2022 02-19-2019 Chronic Other nervous system disorders (1 source) [...] left upper limb] Onset: 07-11-2020 07-11-2020 Chronic Other non-traumatic joint disorders (4 sources) Hip pain; Translations: [Pain in left hip] 03-28-2020 Episodic Other screening for suspected conditions (not mental disorders or infectious disease) (4 sources) Decreased testosterone level ; Translations: [Other specified abnormal findings of blood chemistry] 01-16-2021 Episodic Other upper respiratory infections (3 sources) Maxillary sinusitis; Translations: [Chronic maxillary sinusitis] 05-10-2023 Chronic Otitis media and related conditions (3 sources) Otitis media of left ear; Translations: [Otitis media, unspecified, left ear] 05-10-2023 Episodic Spondylosis; intervertebral disc disorders; other back problems (17 sources) Low back pain; Translations: [Lumbar radiculopathy] Onset: 11-21-2014 11-21-2014 Episodic Sprains and strains (3 sources) Strain of neck muscle; Translations: [Strain of muscle, fascia and tendon at neck level, subsequent encounter] Onset: 05-02-2020 05-02-2020 Episodic Unclassified (4 sources) Diabetes mellitus type 2, uncontrolled, without complications; Translations: [Uncontrolled diabetes mellitus type 2 without complications] 06-06-2018 Unclassified (1 source) Other intervertebral disc degeneration, lumbar region with discogenic back pain and lower extremity pain; Translations: [Other intervertebral disc degeneration, lumbar region with discogenic back pain and lower extremity pain] Onset: 11-30-2024 Unclassified (1 source) Low back pain, unspecified; Translations: [Low back pain, unspecified] Onset: 12-26-2024 Viral infection (6 sources) Herpes simplex; Translations: [Herpesviral infection, unspecified] 02-19-2019 Episodic Past or Other Problems Problem Classification Problem Date Documented Da te Episodic/Chronic E Codes: Natural/environment (1 source) Overexertion from repetitive movements, subsequent encounter; Translations: [Other specified aftercare] Onset: 05-02-2020 05-02-2020 Episodic Poisoning by nonmedicinal substances (1 source) Toxic effect of venom of bees, accidental (unintentional), initial encounter; Translations: [Bee sting reaction, accidental or unintentional, initial encounter] Onset: 01-05-2022 Episodic Unclassified (1 source) Problem Unclassified (4 sources) DJD 12-17-2021 Unclassified (4 sources) P U D 12-17-2021 Unclassified (4 sources) colonoscopy in 2016 neg 12-17-2021 Results Test Name Value Interpretation Reference Range Facility Inital Evaluation (1) - PTon 11-26-2024 Inital Evaluation (1) - PT [facility] [address] [place] [address] [address] [place] [address] / REHABILITATION SERVICES INITIAL EVALUATION MR#: [id number] Acct: [id number] Name: JORGE VELASQUEZ Rep #: [id number] : 1960 64 From: Antonietta Kirkpatrick PT, Cert. MD [place], OCS Referring DrJyothi: L[facility] Status: REG RCR Insurance: [facility] [employer] [facility] Patient's Visit Information Visit Information Visit Information: JORGE VELASQUEZ is a 64 year old M referred to Physical Therapy by [facility] with a diagnosis of RADICULOPATHY OF LUMBAR ,OTHER INTEVERTBRAL DISC DEGENERATION REGION. Date of Evaluation: 11/26/24 Physical Therapist: Antonietta Kirkpatrick, PT, Cert MDT, OCS Visit Plan Frequency: 2x /Week Duration: 4 Weeks Plan: PLANNING FOR MRI PT INTERVENTIONS LUMBAR ROM,DLS ,POSTURAL EX'S ,LE FLEXABILITY .MANUAL THERAPY AND MODLATIES ( LUMBAR TRACTION) Subjective Subjective: This 64 y/o male presents to physical therapy with lumbar radiculopathy . Patient has left lumbar radiculopathy ` 3 months . Initially developed sharp pain left while standing then gradually developed paresthesia/tingling. Initially seen Family DR had x-rays referred to Dr Martinez ,seen [address] [facility]. Recommended PT and ordered MRI December 21 . Location center lumbar and paresthesia left lateral knee. Aggravating bending forward ,lifting ,standing . Alleviation factors walking but can cause pain in hip joint,sitting. Coughing/sneezing- .Bowel/bladder -. Pain affects sleeping thus sleeps in recliner. No abnormal night pain. No h/o trauma/injury , No treatments . No h/o back pain Patient pain affects QOL and function. Patient goal to decrease back pain and cause. VOCATION: [employer] LESIURE/ HOBBIES: golfing/fishing SOCAIL: Pain Left Back: Pain Intensity (Out of 10): 3 Pain Intensity Range: 10 Objective Objective: POSTURE: mild thoracic kyphosis forward posture GAIT: reciprocal pattern NEURO: c/o paresthesia/tingling left knee lateral ,reflexes L3-4,L4-5 ,L5-S1 /13 PALAPTION: mild tender LS left ASYMMETRIES: align MMT: quads/hams 4/5 ,hip flexion 4/5 ,ankle 5/5 FLEXABILITY : hamstrings mild tight LUMBAR ROM: flexion mod loss ,extension mod loss ,side glide min loss Special Tests L/S Slump test left side: Negative L/S Slump test right side: Negative L/S Left Straight Leg Raise: Negative L/S Right Straight Leg Raise: Negative Lumbar Standing: Flexion - Mechanical Response: No effect Lumbar Standing: Flexion - Symptoms During Testing: Increases Lumbar Standing: Flexion - Symptoms After Testing: No worse Comments:: back NE with paresthesia Lumbar Standing: Extension - Mechanical Response: No effect Lumbar Standing: Extension - Symptoms During Testing: Increases Lumbar Standing: Extension - Symptoms After Testing: No worse Lumbar Standing: Right Side Glides - Mechanical Response: No effect Lumbar Standing: Right Side Jonancy - Symptoms During Testing: No effect Lumbar Standing: Right Side Jon[place] - Symptoms After Testing: No effect Lumbar Standing: Left Side [place] - Mechanical Response: No effect Lumbar Standing: Left Side Jonancy - Symptoms During Testing: No effect Lumbar Standing: Left Side Jonancy - Symptoms After Testing: No effect Lumbar Lying: Flexion - Mechanical Response: No effect Lumbar Lying: Flexion - Symptoms During Testing: No effect Lumbar Lying: Flexion - Symptoms After Testing: No effect Lumbar Lying: Extension - Mechanical Response: No effect Lumbar Lying: Extension - Symptoms During Testing: Increases Lumbar Lying: Extension - Symptoms After Testing: No worse Comments:: NE paresthesia Balance/Special Test Scores Oswestry Low Back Score: 16 Goals Goal 1:: Patient to be I with HEP for back Goal Time Frame: 4-6 Weeks Goal 2:: Patient to improve lumbar ROM for function of recovery for ADL's and job demands Goal Time Frame: 4-6 Weeks Goal 3:: Patient to demonstrate 50% improvement with less pain and improved function Goal Time Frame: 4-6 Weeks Goal 4:: Patient to improve back oswestry score by 5 points to improve QOL Goal Time Frame: 4-6 Weeks Rehabilitation Potential Physical Therapy Diagnosis: This patient has possible disc vs lateral stenosis with pain with motion testing ,decrease rotation with extension left side limited ,pain with position and motion but not worse no effect with numbness thus benefit from skilled PT Rehabilitation Potential: Good Anticipated Interventions Patient/Client Instruction: Educate patient on: Condition and Plan of Care For the Purpose of:: To decrease pain, To increase ROM, To improve muscle performance and motor function, To improve ability to perform ADL's, To increase tolerance to activity/condition/positio n, To improve ability of physical actions for home/community/work/leisur e, To improve health of tissue, To decrease soft tissue r (more content not included)... Normal [facility] Orthopedic Visit Reporton Orthopedic Visit Report [facility] [address] [place] [address] [id number] OFFICE VISIT Date of Service: 11/15/24 MR#: [id number] Acct: [id number] Name: IMELDA VELASQUEZE GRACE Rep #: [id number] : 1960 Provider: LANE Verdugo Age/Sex: 64/M Location: [facility] Status: Signed Intake Vital Signs 11/01/24 16:54 11/15/24 14:34 Height 5 ft 5.7 in 5 ft 8 in Weight: 185 lb 6 oz BMI 28.1 Intake Visit Reasons: LUMBAR SPINE Accompanied by: Self Is patient in pain?: Yes Pain scale (1-10): 3 Allergies No Known Allergies Allergy (Unverified 11/15/24 14:34) Medications ???Medication ???Instructions ???Recorded ???Confirmed ???Type aspirin 81 mg tablet,delayed 81 mg PO DAILY 06/06/18 11/15/24 H istory release (Adult Aspirin Regimen) cholecalciferol (vitamin D3) 125 125 mcg PO DAILY 06/16/21 11/15/24 History mcg (5,000 unit) capsule fluticasone propionate 50 1 spray intranasal DAILY #18.2 11/15/24 Rx mcg/actuation nasal grams spray,suspension amlodipine 5 mg tablet 5 mg PO QDAY #90 tabs 03/20/24 Rx blood sugar diagnostic (Accu-Chek #100 ea 03/20/24 11/15/24 Rx Guide test strips) blood-glucose meter (Accu-Chek #1 ea 03/20/24 11/15/24 Rx Guide Glucose Meter) lancets (Accu-Chek Fastclix Lancet #100 ea 03/20/24 11/15/24 Rx Drum) dulaglutide 0.75 mg/0.5 mL 0.75 mg (0.5 mL) subcut QWEEK 3 11/15/24 Rx subcutaneous pen injector months #6.5 mL (Trulicity) dapagliflozin propanediol 10 mg 10 mg PO DAILY #90 tabs 05/09/24 0 11/15/24 Rx tablet (Farxiga) glimepiride 2 mg tablet 2 mg PO QAM #90 tabs 05/09/24 06/11/14 Rx losartan 50 mg tablet 50 mg PO DAILY #90 tabs 05/09/24 0 11/15/24 Rx metformin 1,000 mg tablet 1,000 mg PO BID #180 tabs 05/09/24 11/15/24 Rx methocarbamol 750 mg tablet 750 mg PO BID PRN muscle pain #180 05/09/24 11/15/24 Rx tabs simvastatin 40 mg tablet 40 mg PO QHS #90 tabs 05/09/24 Rx tamsulosin 0.4 mg capsule 0.4 mg PO QHS #90 caps 05/09/24 Rx lansoprazole 30 mg capsule,delayed 30 mg PO BID #180 caps 07/30/24 11/15/24 Rx release fenofibrate 54 mg tablet 54 mg PO QDAY #90 tabs 09/27/24 Rx prednisone 20 mg tablet 40 mg (2 x 20 mg) PO DAILY #20 tab s 11/01/24 11/15/24 Rx PFSH Medical History (Updated 11/15/24 @ 15:[address]) Diabetes Vitamin D deficiency colonoscopy in 2015 neg Psoriasis DJD P U D Osteoarthritis Hypertension Hyperlipidemia Depression Surgical History (Updated 11/15/24 @ 14:35 by Shannon Alas) History of hernia repair Family History Brother Aneurysm Other Bladder cancer Breast cancer Cancer Colon cancer Diabetes Hypertension Lung cancer Social History Smoking Status: Never smoker HPI LUMBAR SPINE Details: This documentation accurately reflects the service provided and the decisions made by me, LANE Verdugo 11/15/24 1431. Part of today???s visit was documented by Yamileth LU, acting as scribe. JORGE VELASQUEZ is a 64 year old M here today for low back pain that he has been having for 4 months without any known injury. Pain has stayed the same. His pain is on the left side that radiates into the hip. Pain goes down the lateral thigh to his lateral knee. The lateral left left knee also has some numbness. Says that occasionally he will get some left-sided groin pain as well. At times he does get sharp pain in his lower back that makes the left leg want to give out. He denies having leg weakness. He does get occasional tingling in the left leg but denies having numbness. He denies physical therapy or injection with pain management. He states that his PCP did prescribe him some prednisone for the pain but he did not get any relief from it. He does take methocarbamol but he has been on the medication for awhile that he thinks is body has built a tolerance to it so it is less effective. He denies having balance issues. He denies having an MRI of his lumbar spine. Standing in one spot increases his pain, says he can stand 5-10 minutes before his pain increases and he needs to sit down. Hx of diabetes, last a1c was 8.4. No heart or lung issues, no blood thinners. No cane or walker. No numbness or tingling in the foot or toes. Patient was told that he should only take Tylenol and that he should not take any [id number] NSAIDs due to having a high creatinine and some slight kidney issues. Ortho Exam General General: Yes no acute distress Neurologic: Yes alert and Yes oriented x3 Spine SPINE TESTING CERVICAL THORACIC LUMBAR Musculoskeletal Strength 0=absent - 5=normal Details: Neurological (more content not included)... Normal [facility] L/S Spine Comp/w Bending Vie wson 11-02-2024 L/S Spine Comp/w Bending Views [facility] Services [address], [place] [address] L/S Spine Comp/w Bending Views MR#: [id number] Acct: [id number] Name: JORGE VELASQUEZ Rep #: [id number] : 1960 M 64 From: Hugh Lopez MD PCP: Mercedes Arellano, TV PRODUCTION ASSISTANT-C Status: REG CLI Study: L/S Spine Comp/w Bending Views Date of Exam: 0 11/02/24 Exam# [id number] Ordering Dr: Mercedes Arellano TV PRODUCTION ASSISTANT N P-C PROCEDURE: L/S SPINE COMP/W BENDING VIEWS 11/02/2024 REASON FOR EXAM: LOW BACK PAIN TECHNIQUE: Five view(s) of the thoracic and lumbar spine. FINDINGS: Satisfactory curvature. Multilevel endplate degenerative change and disc disease of the lumbar spine, most significant at L2-3. No acute fracture or significant dynamic instability. Calcified atherosclerotic disease of the aorta. RAD/L/S Spine Comp/w Bending Views IMPRESSION: No acute fracture or significant dynamic instability. Reading Location: [facility] CC: HERIBERTO [place] Bailiff: Signed Normal [facility] CBC W/Diff, Automatedon 12- Absolute Lymph 2.43 X10 3/uL Normal 0.83-4.51 [facility] Comment on above: Performed By: #### L 500.4100, L501.9940, L501.9985, L100.0100, L500.4050 #### [facility] [address] [place], [address] Absolute Neut 4.0 X10 3/uL Normal 2.0-7.7 [facility] Comment on above: Performed By: #### L 500.4100, L501.9940, L501.9985, L100.0100, L500.4050 #### [facility] [address] [place], [address] Basophils/100 WBC (Bld) 1.0 % Normal 0-1 [facility] Comment on above: Performed By: #### L 500.4100, L501.9940, L501.9985, L100.0100, L500.4050 #### [facility] [address] [place], [address] Eosinophils/100 WBC (Bld) 1.4 % Normal 0-5 [facility] Comment on above: Performed By: #### L 500.4100, L501.9940, L501.9985, L100.0100, L500.4050 #### [facility] [address] [place], [address] Erythrocyte distribution width (RBC) [Ratio] 13.2 % Normal 11.6-14.6 [facility] Comment on above: Performed By: #### L 500.4100, L501.9940, L501.9985, L100.0100, L500.4050 #### [facility] [address] [place], [address] Hematocrit (Bld) [Volume fraction] 45.1 % Normal 40-54 [facility] Comment on above: Performed By: #### L 500.4100, L501.9940, L501.9985, L100.0100, L500.4050 #### [facility] [address] [place], [address] Hemoglobin (Bld) [Mass/Vol] 14.9 g/dL Normal 13.0-16.5 [facility] Comment on above: Performed By: #### L 500.4100, L501.9940, L501.9985, L100.0100, L500.4050 #### [facility] [address] [place], [address] IG% 0.400 Normal 0.0-0.9 [facility] Comment on above: Result Comment: IG% - Immature Granulocytes (promyelocytes, myelocytes and metamyelocytes) > 1% indicates that a LEFT SHIFT is Present. Performed By: #### L 500.4100, L501.9940, L501.9985, L100.0100, L500.4050 #### [facility] [address] [place], [address] Lymphocytes/100 WBC (Bld) 33.5 % Normal 19-41 [facility] Comment on above: Performed By: #### L 500.4100, L501.9940, L501.9985, L100.0100, L500.4050 #### [facility] [address] [place], [address] MCH (RBC) [Entitic mass] 29.2 pg Normal 27.0-32.0 [facility] Comment on above: Performed By: #### L 500.4100, L501.9940, L501.9985, L100.0100, L500.4050 #### [facility] [address] [place], [address] MCHC (RBC) [Mass/Vol] 33.0 g/dL Normal 32-36 [facility] Comment on above: Performed By: #### L 500.4100, L501.9940, L501.9985, L100.0100, L500.4050 #### [facility] [address] [place], [address] MCV (RBC) [Entitic vol] 88.3 fL Normal 80-94 [facility] Comment on above: Performed By: #### L 500.4100, L501.9940, L501.9985, L100.0100, L500.4050 #### [facility] [address] [place], [address] Monocytes/100 WBC (Bld) 8.4 % Normal 0-10 [facility] Comment on above: Performed By: #### L 500.4100, L501.9940, L501.9985, L100.0100, L500.4050 #### [facility] [address] [place], [address] Neutrophils/100 WBC (Bld) 55.3 % Normal 47-70 [facility] Comment on above: Performed By: #### L 500.4100, L501.9940, L501.9985, L100.0100, L500.4050 #### [facility] [address] [place], [address] Nucleated RBC (Bld) [#/Vol] 0 10*3/uL Normal 0-5 [facility] Comment on above: Performed By: #### L 500.4100, L501.9940, L501.9985, L100.0100, L500.4050 #### [facility] [address] [place], [address] Platelet mean volume (Bld) [Entitic vol] 9.8 fL Normal 6.2-12.0 [facility] Comment on above: Performed By: #### L 500.4100, L501.9940, L501.9985, L100.0100, L500.4050 #### [facility] [address] [place], [address] Platelets (Bld) [#/Vol] 273 10*3/uL Normal 150-450 [facility] Comment on above: Performed By: #### L 500.4100, L501.9940, L501.9985, L100.0100, L500.4050 #### [facility] [address] [place], [address] RBC (Bld) [#/Vol] 5.11 10*6/uL Normal 4.6-6.2 [facility] Comment on above: Performed By: #### L 500.4100, L501.9940, L501.9985, L100.0100, L500.4050 #### [facility] [address] [place], [address] RDW SD 43.0 fl Normal 35.1-43.9 [facility] Comment on above: Performed By: #### L 500.4100, L501.9940, L501.9985, L100.0100, L500.4050 #### [facility] [address] [place], [address] WBC (Bld) [#/Vol] 7.3 10*3/uL Normal 4.4-11.0 [facility] Comment on above: Performed By: #### L 500.4100, L501.9940, L501.9985, L100.0100, L500.4050 #### [facility] [address] [place], [address] Comprehensive Metabolic [facility] 05-09-2024 Albumin [Mass/Vol] 4.0 g/dL Normal 3.2-5.0 [facility] Comment on above: Performed By: #### L 500.4100, L501.9940, L501.9985, L100.0100, L500.4050 #### [facility] [address] [place], [address] Albumin/Globulin [Mass ratio] 1.2 {ratio} Normal 0.9-2.4 [facility] Comment on above: Performed By: #### L 500.4100, L501.9940, L501.9985, L100.0100, L500.4050 #### [facility] [address] [place], [address] ALK P 78 U/L Normal 45-117 [facility] Comment on above: Performed By: #### L 500.4100, L501.9940, L501.9985, L100.0100, L500.4050 #### [facility] [address] [place], [address] ALT [Catalytic activity/Vol] 43 U/L Normal 16-61 [facility] Comment on above: Performed By: #### L 500.4100, L501.9940, L501.9985, L100.0100, L500.4050 #### [facility] [address] [place], [address] AST [Catalytic activity/Vol] 22 U/L Normal 15-37 [facility] Comment on above: Performed By: #### L 500.4100, L501.9940, L501.9985, L100.0100, L500.4050 #### [facility] [address] [place], [address] Bilirubin [Mass/Vol] 0.30 mg/dL Normal 0.20-1.00 [facility] Comment on above: Result Comment: For patients on eltrombopag therapy, use of Dimension [place] TBIL is not recommended. Performed By: #### L 500.4100, L501.9940, L501.9985, L100.0100, L500.4050 #### [facility] [address] [place], [address] BUN/CRE 14.3 RATIO Normal 10-20 [facility] Comment on above: Performed By: #### L 500.4100, L501.9940, L501.9985, L100.0100, L500.4050 #### [facility] [address] [place], [address] CA,Total 9.6 mg/dL Normal 8.5-10.1 [facility] Comment on above: Performed By: #### L 500.4100, L501.9940, L501.9985, L100.0100, L500.4050 #### [facility] [address] [place], [address] Chloride [Moles/Vol] 107 mmol/L Normal 98-107 [facility] Comment on above: Performed By: #### L 500.4100, L501.9940, L501.9985, L100.0100, L500.4050 #### [facility] [address] [place], [address] CO2 [Moles/Vol] 24.0 mmol/L Normal 21.0-32.0 [facility] Comment on above: Performed By: #### L 500.4100, L501.9940, L501.9985, L100.0100, L500.4050 #### [facility] [address] [place], [address] Creatinine [Mass/Vol] 2.03 mg/dL High 0.70-1.30 [facility] Comment on above: Result Comment: The validity of the calculated GFR GFRAA in patients over 70 years has not been determined. Clinical correlation is essential. Performed By: #### L 500.4100, L501.9940, L501.9985, L100.0100, L500.4050 #### [facility] [address] [place], [address] EST GFR - AA 43 mL/min Low >60 [facility] Comment on above: Result Comment: Afri can [place] GFR Calc Performed By: #### L 500.4100, L501.9940, L501.9985, L100.0100, L500.4050 #### [facility] [address] [place], [address] GAP 7 Normal 5-15 [facility] Comment on above: Performed By: #### L 500.4100, L501.9940, L501.9985, L100.0100, L500.4050 #### [facility] [address] [place], [address] GFR/1.73 sq M.predicted among non-blacks MDRD (S/P/Bld) [Vol rate/Area] 35 mL/min/{1.73_m2} Low >60 [facility] Comment on above: Result Comment: Non- GFR Calc Performed By: #### L 500.4100, L501.9940, L501.9985, L100.0100, L500.4050 #### [facility] [address] [place], [address] Globulin (S) [Mass/Vol] 3.2 g/dL Normal 2.2-4.2 [facility] Comment on above: Performed By: #### L 500.4100, L501.9940, L501.9985, L100.0100, L500.4050 #### [facility] [address] [place], [address] Glucose [Mass/Vol] 135 mg/dL High 74-106 [facility] Comment on above: Result Comment: Fast ing Glucose result greater than or equal to 126 mg/dL suggests DIABETES MELLITUS per A.D.A. criteria. Performed By: #### L 500.4100, L501.9940, L501.9985, L100.0100, L500.4050 #### [facility] [address] [place], [address] Potassium [Moles/Vol] 4.5 mmol/L Normal 3.5-5.1 [facility] Comment on above: Performed By: #### L 500.4100, L501.9940, L501.9985, L100.0100, L500.4050 #### [facility] [address] [place], [address] Sodium [Moles/Vol] 138 mmol/L Normal 136-145 [facility] Comment on above: Performed By: #### L 500.4100, L501.9940, L501.9985, L100.0100, L500.4050 #### [facility] [address] [place], [address] T PROT 7.2 g/dL Normal 6.4-8.2 [facility] Comment on above: Performed By: #### L 500.4100, L501.9940, L501.9985, L100.0100, L500.4050 #### [facility] [address] [place], [address] Urea nitrogen [Mass/Vol] 29 mg/dL High - [facility] Comment on above: Performed By: #### L 500.4100, L501.9940, L501.9985, L100.0100, L500.4050 #### [facility] [address] [place], [address] Hemoglobin A1con 05-09-2024 HbA1c (Bld) [Mass fraction] 8.4 % High 3.8-5.6 [facility] Comment on above: Result Comment: Norm al < 5.7 % Prediabetic 5.7 - 6.4 % Diabetic >or= 6.5 % Please note range changes. Performed By: #### L 500.4100, L501.9940, L501.9985, L100.0100, L500.4050 #### [facility] [address] [place], [address] Lipid Profileon 05-09-2024 Cholesterol [Mass/Vol] 157 mg/dL Normal 200 [facility] Comment on above: Result Comment: <200 mg/dL Desirable 200-240 mg/dL Borderline >240 mg/dL High Risk Performed By: #### L 500.4100, L501.9940, L501.9985, L100.0100, L500.4050 #### [facility] [address] [place], [address] Cholesterol in HDL [Mass/Vol] 48 mg/dL Normal [facility] Comment on above: Result Comment: The drugs N-Acetylcysteine and Metamizole may falsely depress this assay. Reference Range HDL <40 mg/dL Low HDL Cholesterol HDL >or= 60 mg/dL High HDL Cholesterol Performed By: #### L 500.4100, L501.9940, L501.9985, L100.0100, L500.4050 #### [facility] [address] [place], [address] Cholesterol in LDL [Mass/Vol] 82 mg/dL Normal 0-130 [facility] Comment on above: Performed By: #### L 500.4100, L501.9940, L501.9985, L100.0100, L500.4050 #### [facility] [address] [place], [address] Cholesterol in VLDL [Mass/Vol] 27 mg/dL Normal 5-40 [facility] Comment on above: Performed By: #### L 500.4100, L501.9940, L501.9985, L100.0100, L500.4050 #### [facility] [address] [place], [address] Triglyceride [Mass/Vol] 137 mg/dL Normal [facility] Comment on above: Result Comment: The drugs N-Acetylcysteine and Metamizole may falsely depress this assay. Serum Triglycerides Reference Interval Normal <150 mg/dL Borderline high 150 - 199 mg/dL High 200 - 499 mg/dL Very High > or = 500 mg/dL Performed By: #### L 500.4100, L501.9940, L501.9985, L100.0100, L500.4050 #### [facility] [address] [place], [place], [address] PSA,Total- Diagnosticon 04-22 PSA, DIAGNOSTIC 2.99 ng/mL Normal 0.0-4.0 [facility] Comment on above: Result Comment: This test was performed using the TPSA assay method for the [employer] chemistry system. Values obtained with different assay methods cannot be used interchangably. When changing PSA assays in the course of monitoring a patient, additional sequential testing should be carried out to confirm baseline values. Performed By: #### L 500.4100, L501.9940, L501.9985, L100.0100, L500.4050 #### [facility] [address] [place], [place], [id number] [facility] Office-Progress Notes-Pr ovideron 03-26-2024 [facility] Office-Progress Notes-Provider Patient: JORGE VELASQUEZ Age: 63 years Sex: Male : 1960 Associated Diagnoses: None Author: JULIO CESAR DELEON, MATIAS Visit Information Visit type: New symptom. Accompanied by: No one. Source of history: Self. Referral source: Self. History limitation: None. Chief Complaint Referred by Mercedes Arellano CNP for cardiovascular evaluation because of elevated blood pressure, fluttering sensation and mild discomfort with the lower chest area. Patient claims symptoms are mostly while he is sitting and without any associated dizziness, chest pain or shortness of breath. Does get sometimes discomfort in things from his stomach without associated shortness of breath or diaphoresis. He was found to have elevated blood pressure in dentist office. Patient has no family history of coronary artery disease is a reformed smoker quit 25 years ago and does have hypertension, type 2 diabetes mellitus and hyperlipidemia for last 17 years. The ECG which was done by Dr. Mercedes Arellano revealed normal sinus rhythm without any acute changes. Chart and medication reviewed. Review of Systems Constitutional: No fever, No chills, No sweats. Eye: Negative. Ear/Nose/Mouth/Throat: Negative. Respiratory: No shortness of breath, No cough. Cardiovascular: No chest pain, No syncope. Gastrointestinal: No nausea, No vomiting. Genitourinary: Negative. Gynecologic Hematology/Lymphatics: No bruising tendency, No bleeding tendency. Endocrine: Negative. Musculoskeletal: Negative. Integumentary: No rash, No abrasions. Psychiatric: No anxiety, No depression. Health Status Allergies: Allergies (1) Active Severity Reaction No Known Allergies None Documented Current medications: Home Medications (14) Active amLODIPine 5 mg oral tablet , ORAL, DAILY Aspirin Low Dose , ORAL, DAILY Farxiga 5 mg oral tablet , ORAL, DAILY fenofibrate 67 mg oral capsule , ORAL, DAILY fluticasone 50 mcg/inh nasal spray , DAILY glimepiride 2 mg oral tablet 2 mg = 1 tabs, ORAL, DAILY lansoprazole 30 mg oral delayed release capsule , ORAL, DAILY losartan 50 mg oral tablet 50 mg = 1 tabs, ORAL, DAILY MetFORMIN (Eqv-Fortamet) 1000 mg oral tablet, extended release , ORAL, DAILY methocarbamol 750 mg oral tablet , ORAL, TID simvastatin 40 mg oral tablet , ORAL, QPM tamsulosin 0.4 mg oral capsule , ORAL, DAILY Trulicity Pen 0.75 mg/0.5 mL subcutaneous solution , Subcutaneous Vitamin D3 125 mcg (5000 intl units) oral tablet 125 mcg = 1 tabs, ORAL, DAILY Problem list: Active Problems (4) Chest pain Dyslipidemia Hypertension Type 2 diabetes mellitus Histories Past Medical History: No qualifying data available Family History: Brother Aneurysm.... Bladder Father Colon cancer.. Lung cancer.. Mother Breast cancer.. Cancer Procedure history: No active procedure history items have been selected or recorded. Social History Social & Psychosocial History Social History Alcohol No Risk Employment/School Not employed or in school Exercise Occasional exercise Home/Environment No Risk Other No Risk Sexual No Risk Substance Abuse Denies Substance Abuse Tobacco Denies Tobacco Use Psychosocial History No active psychosocial history has been recorded . Physical Examination Temperature 98.6 (13:25) Systolic Blood Pressure 144 (13:34) Diastolic Blood Pressure 74 (13:34) Pulse 98 (13:25) SpO2 No result Respiratory Rate No result VS/Measurements Documented vital signs, Vital Signs (last 24 hrs) Last Charted Heart Rate Apical 98 bpm (MAR 26 13:25) SBP H 144 mmHg (MAR 26:34) DBP 74 mmHg (MAR 26:34) BMI 30.74 (MAR 26 13:25) General: Alert and oriented, No acute distress. Skin: No cyanosis, Not jaundiced. Eye: Normal conjunctiva. HENT: Normocephalic. Neck: Supple, Non-tender, No carotid bruit, No jugular venous distention, No lymphadenopathy, No thyromegaly. Respiratory: Symmetrical chest wall expansion, No chest wall tenderness. Breath sounds: Bilateral, Anterior, Posterior, No wheezing, No crackles present. Cardiovascular: Normal rate, Regular rhythm, No murmur, No gallop, Good pulses equal in all extremities, Normal peripheral perfusion, No edema. Gastrointestinal: Soft, Non-tender, Normal bowel sounds, No organomegaly. Genitourinary: No costovertebral angle tenderness. Lymphatics: No lymphadenopathy neck, axilla, groin. Musculoskeletal: Normal range of motion, Normal strength, No tenderness, No deformity. Integumentary: Warm. Neurologic: Alert, Oriented, No focal deficits. Psychiatric: Cooperative, Normal judgment. Review / Management No qualifying data available Impression and Plan 1. Blood pressure is mildly elevated will monitor closely. 2. Multiple risk factors for coronary artery disease. 3. Flutter sensation rule out significant arrhythmia. 4. Lower chest discomfort does not ap (more content not included)... Normal [facility] Ambulatory Vitals Height Higinio ght-Texton 03-26-2024 Ambulatory Vitals Height Weight-Text Ambulatory Vitals Height Weight Entered On: 03/26/2024 13:34 EST Performed On: 03/26/2024 13:34 EST by MATIAS HARRELL MD Vitals/Ht/Wt Systolic Blood Pressure : 144 mmHg (HI) Diastolic Blood Pressure : 74 mmHg JULIO CESAR DELEON, MATIAS - 03/26/2024 13:34 EST Normal [facility] Comprehensive Intake - Texto n 03-26-2024 Comprehensive Intake - Text Comprehensive Intake Entered On: 03/26/2024 13:27 EST Performed On: 03/26/2024 13:25 EST by Lindsay Pizarro MA Summary Chief Complaint : 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 : No Urine Leakage? : No Presence or absence of urinary incontinence assessed : Yes CPT-II Medication list doc'd in medical record : Yes Influenza immunization administered or previously received : No Pneumococcal vaccine administered or previously received : No Lindsay Pizarro MA - 03/26/2024 13:25 EST Measurements Ht/Wt Measurement Refused by Patient? : No Weight Measured : 92 kg(Converted to: 202 lb 13 oz, 202.825 lb) Height/Length Measured : 173 cm(Converted to: 5 ft 8 in, 68.11 in) Body Mass Index Measured : 30.74 kg/m2 Body Mass Index documented : Yes Weight Measured - lbs : 202 lb(Converted to: 202 lb 0 oz, 92 kg) Height/Length Measured - in : 68 in(Converted to: 5 ft 8 in, 173 cm) Body Mass Index Measured [place] : 30.71 kg/m2 BSA [place] : 2.09 m2 Lindsay Pizarro MA - 03/26/2024 13:25 EST Vitals Require BP : No Apical Heart Rate : 98 bpm Temperature Temporal (F) : 98.6 degF(Converted to: 37 degC) Pain Present : No actual or suspected pain Pain : 0 Pain severity quantified : No pain present Lindsay Pizarro MA - 03/26/2024 13:25 EST Infection Screening Travel outside [place] within past 21 days : No Close Contact with a person with TB : No Have you been diagnosed with TB : No Have you ever been treated for TB : No Positive COVID test in the last 10 days? : No Exposure to and/or close contact with a person who has a laboratory-confirmed COVID test within the last 48 hours. : No Coronavirus New Symptoms w/o Cause : No Lindsay Pizarro MA - 03/26/2024 13:25 EST Depression Screening Is patient currently : None of the Below Feeling Down, Depressed, Hopeless : Not at all Little Interest - Pleasure in Activities : Not at all Initial Depression Screen Score : 0 Depression Screening Score 0 : No Lindsay Pizarro MA - 03/26/2024 13:25 EST Falls Risk Assessment Is the patient ambulatory (mobile) : Yes Have you had 2 or more falls in the past year : No Have you had a fall within the past year that has caused an injury : No Patient screen for fall risk : no falls in last year OR 1 fall with no injury in last year Lindsay Pizarro MA - 03/26/2024 13:25 EST Normal [facility] Discharge Educationon 2023 Discharge Education Cardiovascular Chest Pain: Care Instructions Your Care Instructions There are many things that can cause chest pain. Some are not serious and will get better on their own in a few days. But some kinds of chest pain need more testing and treatment. Your doctor may have recommended a follow-up visit in the next 8 to 12 hours. If you are not getting better, you may need more tests or treatment. Even though your doctor has released you, you still need to watch for any problems. The doctor carefully checked you, but sometimes problems can develop later. If you have new symptoms or if your symptoms do not get better, get medical care right away. If you have worse or different chest pain or pressure that lasts more than 5 minutes or you passed out (lost consciousness), call 911 or seek other emergency help right away. A medical visit is only one step in your treatment. Even if you feel better, you still need to do what your doctor recommends, such as going to all suggested follow-up appointments and taking medicines exactly as directed. This will help you recover and help prevent future problems. How can you care for yourself at home? ? Rest until you feel better. ? Take your medicine exactly as prescribed. Call your doctor if you think you are having a problem with your medicine. ? Do not drive after taking a prescription pain medicine. When should you call for help? Call 911 if: ? You passed out (lost consciousness). ? You have severe difficulty breathing. ? You have symptoms of a heart attack. These may include: ? Chest pain or pressure, or a strange feeling in your chest. ? Sweating. ? Shortness of breath. ? Nausea or vomiting. ? Pain, pressure, or a strange feeling in your back, neck, jaw, or upper belly or in one or both shoulders or arms. ? Lightheadedness or sudden weakness. ? A fast or irregular heartbeat. After you call 911, the oiling machine operator may tell you to chew 1 adult-strength or 2 to 4 low-dose aspirin. Wait for an ambulance. Do not try to drive yourself. Call your doctor today if: ? You have any trouble breathing. ? Your chest pain gets worse. ? You are dizzy or lightheaded, or you feel like you may faint. ? You are not getting better as expected. ? You are having new or different chest pain. Where can you learn more? Go to https://www.[employer].net /patientEd Enter A120 in the search box to learn more about Chest Pain: Care Instructions. Current as of: July 29, 2021 Content Version: 13.3 ? [employer]. Care instructions adapted under license by your healthcare professional. If you have questions about a medical condition or this instruction, always ask your healthcare professional. [employer] disclaims any warranty or liability for your use of this information. Normal [facility] Provider Letter - Ambulatory on 03-26-2024 Provider Letter - Ambulatory MERCEDES ARELLANO, [address] [place], [place] [id number] RE: JORGE VELASQUEZ - 1960 Dear MERCEDES ARELLANO This document is confidential and intended solely for the use of the individual or entity to which they are addressed. If you are not the named addressee, please disregard and do not disseminate, distribute or copy this information. If you are not the intended recipient you are notified that any disclosure of this information and its contents are strictly prohibited. If you have any questions about this document, please contact the office. Sincerely, JULIO CESAR DELEON, MATIAS [facility] The following document(s) were included in the letter: March 26, 2024 13:35:00 EST - (03/26/2024) Cardiology Office Note with BMI Normal [facility] Stress Test Reporton 024 Stress Test Report Patient: NANI VELASQUEZ Age: 63 years Sex: Male : 1960 Associated Diagnoses: None Author: MATIAS HARRELL MD Date of Exam: 03/26/2024 Referring Physician: Dr. Nilton Harrell Reason for Stress Test: Chest pain and fluttering sensation Findings: 1. The baseline ECG with normal sinus rhythm at resting heart rate of 105 bpm. 2. The resting blood pressure was 130/60 mmHg with normal response to exercise. 3. The total exercise time was 6 minutes and 40 seconds with heart rate response of 100%. 4. This test returned because of heart response no symptoms provoked. 5. The 12 ECG taken during the test did not reveal any ST segment normalities and no arrhythmia present. Conclusion: 1. Negative stress test for myocardial ischemia. Electronically signed by Dr. Nilton Harrell. Copy of Final Report Sent to: [] Date of Interpretation: 03/26/2024 Date of Final Report: 03/26/2024 Normal [facility] CRP, High Sensitivity 100252 on 03-22-2024 CRP, HIGH SENS 2.96 mg/L Normal 0.00-3.00 [facility] Comment on above: Result Comment: Rela tive Risk for Future Cardiovascular Event Low <1.00 Average 1.00 - 3.00 High >3.00 Performed at: [facility] [id number] Billing Rep: Julio C Frederick PhD, Phone: [phone] Performed By: #### L 501.4020, L501.9985, L100.0100, L500.4100, L500.4050, L3100.7870 ####[facility] [address] [place], [address] Comprehensive Metabolic Prof [facility] 03-21-2024 Albumin [Mass/Vol] 3.7 g/dL Normal 3.2-5.0 [facility] Comment on above: Order Comment: 1 Performed By: #### L 501.4020, L501.9985, L100.0100, L500.4100, L500.4050, L3100.7870 #### [facility] [address] [place], [place], [id number] Albumin/Globulin [Mass ratio] 1.2 {ratio} Normal 0.9-2.4 [facility] Comment on above: Order Comment: 1 Performed By: #### L 501.4020, L501.9985, L100.0100, L500.4100, L500.4050, L3100.7870 #### [facility] [address] [place], [address] ALK P 145 U/L High 45-117 [facility] Comment on above: Order Comment: 1 Performed By: #### L 501.4020, L501.9985, L100.0100, L500.4100, L500.4050, L3100.7870 #### [facility] [address] [place], [address] ALT [Catalytic activity/Vol] 62 U/L High 16-61 [facility] Comment on above: Order Comment: 1 Performed By: #### L 501.4020, L501.9985, L100.0100, L500.4100, L500.4050, L3100.7870 #### [facility] [address] [place], [address] AST [Catalytic activity/Vol] 34 U/L Normal 15-37 [facility] Comment on above: Order Comment: 1 Performed By: #### L 501.4020, L501.9985, L100.0100, L500.4100, L500.4050, L3100.7870 #### [facility] [address] [place], [address] Bilirubin [Mass/Vol] 0.30 mg/dL Normal 0.20-1.00 [facility] Comment on above: Order Comment: 1 Result Comment: For patients on eltrombopag therapy, use of Dimension [place] TBIL is not recommended. Performed By: #### L 501.4020, L501.9985, L100.0100, L500.4100, L500.4050, L3100.7870 #### [facility] [address] [place], [address] BUN/CRE 17.4 RATIO Normal 10-20 [facility] Comment on above: Order Comment: 1 Performed By: #### L 501.4020, L501.9985, L100.0100, L500.4100, L500.4050, L3100.7870 #### [facility] [address] [place], [address] CA,Total 9.0 mg/dL Normal 8.5-10.1 [facility] Comment on above: Order Comment: 1 Performed By: #### L 501.4020, L501.9985, L100.0100, L500.4100, L500.4050, L3100.7870 #### [facility] [address] [place], [address] Chloride [Moles/Vol] 106 mmol/L Normal 98-107 [facility] Comment on above: Order Comment: 1 Performed By: #### L 501.4020, L501.9985, L100.0100, L500.4100, L500.4050, L3100.7870 #### [facility] [address] [place], [address] CO2 [Moles/Vol] 24.0 mmol/L Normal 21.0-32.0 [facility] Comment on above: Order Comment: 1 Performed By: #### L 501.4020, L501.9985, L100.0100, L500.4100, L500.4050, L3100.7870 #### [facility] [address] [place], [address] Creatinine [Mass/Vol] 1.49 mg/dL High 0.70-1.30 [facility] Comment on above: Order Comment: 1 Result Comment: The validity of the calculated GFR GFRAA in patients over 70 years has not been determined. Clinical correlation is essential. Performed By: #### L 501.4020, L501.9985, L100.0100, L500.4100, L500.4050, L3100.7870 #### [facility] [address] [place], [address] EST GFR - AA 61 mL/min Normal >60 [facility] Comment on above: Order Comment: 1 Result Comment: Afri can [place] GFR Calc Performed By: #### L 501.4020, L501.9985, L100.0100, L500.4100, L500.4050, L3100.7870 #### [facility] [address] [place], [address] GAP 9 Normal 5-15 [facility] Comment on above: Order Comment: 1 Performed By: #### L 501.4020, L501.9985, L100.0100, L500.4100, L500.4050, L3100.7870 #### [facility] [address] [place], [address] GFR/1.73 sq M.predicted among non-blacks MDRD (S/P/Bld) [Vol rate/Area] 51 mL/min/{1.73_m2} Low >60 [facility] Comment on above: Order Comment: 1 Result Comment: Non- GFR Calc Performed By: #### L 501.4020, L501.9985, L100.0100, L500.4100, L500.4050, L3100.7870 #### [facility] [address] [place], [address] Globulin (S) [Mass/Vol] 3.2 g/dL Normal 2.2-4.2 [facility] Comment on above: Order Comment: 1 Performed By: #### L 501.4020, L501.9985, L100.0100, L500.4100, L500.4050, L3100.7870 #### [facility] [address] [place], [address] Glucose [Mass/Vol] 236 mg/dL High 74-106 [facility] Comment on above: Order Comment: 1 Result Comment: Gluc ose result greater than or equal to 200 mg/dL suggests DIABETES MELLITUS per A.D.A. criteria. Performed By: #### L 501.4020, L501.9985, L100.0100, L500.4100, L500.4050, L3100.7870 #### [facility] [address] [place], [address] Potassium [Moles/Vol] 4.3 mmol/L Normal 3.5-5.1 [facility] Comment on above: Order Comment: 1 Performed By: #### L 501.4020, L501.9985, L100.0100, L500.4100, L500.4050, L3100.7870 #### [facility] [address] [place], [address] Sodium [Moles/Vol] 138 mmol/L Normal 136-145 [facility] Comment on above: Order Comment: 1 Performed By: #### L 501.4020, L501.9985, L100.0100, L500.4100, L500.4050, L3100.7870 #### [facility] [address] [place], [address] T PROT 6.9 g/dL Normal 6.4-8.2 [facility] Comment on above: Order Comment: 1 Performed By: #### L 501.4020, L501.9985, L100.0100, L500.4100, L500.4050, L3100.7870 #### [facility] [address] [place], [address] Urea nitrogen [Mass/Vol] 26 mg/dL High 7-18 [facility] Comment on above: Order Comment: 1 Performed By: #### L 501.4020, L501.9985, L100.0100, L500.4100, L500.4050, L3100.7870 #### [facility] [address] [place], [address] Hemoglobin A1con 03-21-2024 HbA1c (Bld) [Mass fraction] 11.3 % High 3.8-5.6 [facility] Comment on above: Result Comment: Norm al < 5.7 % Prediabetic 5.7 - 6.4 % Diabetic >or= 6.5 % Please note range changes. Performed By: #### L 501.4020, L501.9985, L100.0100, L500.4100, L500.4050, L3100.7870 #### [facility] [address] [place], [place], [id number] [phone] [phone] 03-21-2024 TROPONIN-I HS 5 pg/mL Normal 3.0-78.0 [facility] Comment on above: Order Comment: 1 Result Comment: Odalys benitez Note: New Test Units and Gender Specific Reference Ranges. For more information see Policy Stat Procedure [place] High Sensitivity Troponin (TNIH) and attachments. Performed By: #### L 501.4020, L501.9985, L100.0100, L500.4100, L500.4050, L3100.7870 ####[facility] [address] [place], [place], [id number] Lipid Profileon 03-21-2024 Cholesterol [Mass/Vol] 200 mg/dL Normal 200 [facility] Comment on above: Order Comment: 1 Result Comment: <200 mg/dL Desirable 200-240 mg/dL Borderline >240 mg/dL High Risk Performed By: #### L 501.4020, L501.9985, L100.0100, L500.4100, L500.4050, L3100.7870 ####[facility] [address] [place], [place], [id number] Cholesterol in HDL [Mass/Vol] 39 mg/dL Low [facility] Comment on above: Order Comment: 1 Result Comment: The drugs N-Acetylcysteine and Metamizole may falsely depress this assay. Reference Range HDL <40 mg/dL Low HDL Cholesterol HDL >or= 60 mg/dL High HDL Cholesterol Performed By: #### L 501.4020, L501.9985, L100.0100, L500.4100, L500.4050, L3100.7870 ####[facility] [address] [place], [address] LDL TNP Normal 0-130 [facility] Comment on above: Order Comment: 1 Performed By: #### L 501.4020, L501.9985, L100.0100, L500.4100, L500.4050, L3100.7870 ####[facility] [address] [place], [address] Triglyceride [Mass/Vol] 657 mg/dL High [facility] Comment on above: Order Comment: 1 Result Comment: The drugs N-Acetylcysteine and Metamizole may falsely depress this assay. TRIGLYCERIDE IS GREATER THAN 400 mg/dL. LDL RESULT IS INVALID AND WILL NOT BE REPORTED. Serum Triglycerides Reference Interval Normal <150 mg/dL Borderline high 150 - 199 mg/dL High 200 - 499 mg/dL Very High > or = 500 mg/dL Performed By: #### L 501.4020, L501.9985, L100.0100, L500.4100, L500.4050, L3100.7870 ####[facility] [address] [place], [place], [phone] VLDL TNP Normal 5-40 [facility] Comment on above: Order Comment: 1 Performed By: #### L 501.4020, L501.9985, L100.0100, L500.4100, L500.4050, L3100.7870 ####[facility] [address] [place], [address] CBC W/Diff, Automatedon 10-2 Absolute Lymph 2.84 X10 3/uL Normal 0.83-4.51 [facility] Comment on above: Performed By: #### L 501.4020, L501.9985, L100.0100, L500.4100, L500.4050, L3100.7870 #### [facility] [address] [place], [address] Absolute Neut 4.6 X10 3/uL Normal 2.0-7.7 [facility] Comment on above: Performed By: #### L 501.4020, L501.9985, L100.0100, L500.4100, L500.4050, L3100.7870 #### [facility] [address] [place], [address] Basophils/100 WBC (Bld) 0.7 % Normal 0-1 [facility] Comment on above: Performed By: #### L 501.4020, L501.9985, L100.0100, L500.4100, L500.4050, L3100.7870 #### [facility] [address] [place], [address] Eosinophils/100 WBC (Bld) 0.9 % Normal 0-5 [facility] Comment on above: Performed By: #### L 501.4020, L501.9985, L100.0100, L500.4100, L500.4050, L3100.7870 #### [facility] [address] [place], [address] Erythrocyte distribution width (RBC) [Ratio] 13.3 % Normal 11.6-14.6 [facility] Comment on above: Performed By: #### L 501.4020, L501.9985, L100.0100, L500.4100, L500.4050, L3100.7870 #### [facility] [address] [place], [address] Hematocrit (Bld) [Volume fraction] 44.9 % Normal 40-54 [facility] Comment on above: Performed By: #### L 501.4020, L501.9985, L100.0100, L500.4100, L500.4050, L3100.7870 #### [facility] [address] [place], [address] Hemoglobin (Bld) [Mass/Vol] 14.6 g/dL Normal 13.0-16.5 [facility] Comment on above: Performed By: #### L 501.4020, L501.9985, L100.0100, L500.4100, L500.4050, L3100.7870 #### [facility] [address] [place], [address] IG% 1.200 High 0.0-0.9 [facility] Comment on above: Result Comment: IG% - Immature Granulocytes (promyelocytes, myelocytes and metamyelocytes) > 1% indicates that a LEFT SHIFT is Present. Performed By: #### L 501.4020, L501.9985, L100.0100, L500.4100, L500.4050, L3100.7870 #### [facility] [address] [place], [address] Lymphocytes/100 WBC (Bld) 34.7 % Normal 19-41 [facility] Comment on above: Performed By: #### L 501.4020, L501.9985, L100.0100, L500.4100, L500.4050, L3100.7870 #### [facility] [address] [place], [address] MCH (RBC) [Entitic mass] 29.0 pg Normal 27.0-32.0 [facility] [facility] Comment on above: Performed By: #### L 501.4020, L501.9985, L100.0100, L500.4100, L500.4050, L3100.7870 #### [facility] [address] [place], [address] MCHC (RBC) [Mass/Vol] 32.5 g/dL Normal 32-36 [facility] Comment on above: Performed By: #### L 501.4020, L501.9985, L100.0100, L500.4100, L500.4050, L3100.7870 #### [facility] [address] [place], [address] MCV (RBC) [Entitic vol] 89.3 fL Normal 80-94 [facility] Comment on above: Performed By: #### L 501.4020, L501.9985, L100.0100, L500.4100, L500.4050, L3100.7870 #### [facility] [address] [place], [address] Monocytes/100 WBC (Bld) 6.6 % Normal 0-10 [facility] Comment on above: Performed By: #### L 501.4020, L501.9985, L100.0100, L500.4100, L500.4050, L3100.7870 #### [facility] [address] [place], [address] Neutrophils/100 WBC (Bld) 55.9 % Normal 47-70 [facility] Comment on above: Performed By: #### L 501.4020, L501.9985, L100.0100, L500.4100, L500.4050, L3100.7870 #### [facility] [address] [place], [address] Nucleated RBC (Bld) [#/Vol] 0 10*3/uL Normal 0-5 [facility] Comment on above: Performed By: #### L 501.4020, L501.9985, L100.0100, L500.4100, L500.4050, L3100.7870 #### [facility] [address] [place], [address] Platelet mean volume (Bld) [Entitic vol] 9.9 fL Normal 6.2-12.0 [facility] Comment on above: Performed By: #### L 501.4020, L501.9985, L100.0100, L500.4100, L500.4050, L3100.7870 #### [facility] [address] [place], [address] Platelets (Bld) [#/Vol] 260 10*3/uL Normal 150-450 [facility] Comment on above: Performed By: #### L 501.4020, L501.9985, L100.0100, L500.4100, L500.4050, L3100.7870 #### [facility] [address] [place], [address] RBC (Bld) [#/Vol] 5.03 10*6/uL Normal 4.6-6.2 [facility] Comment on above: Performed By: #### L 501.4020, L501.9985, L100.0100, L500.4100, L500.4050, L3100.7870 #### [facility] [address] [place], [address] RDW SD 43.5 fl Normal 35.1-43.9 [facility] Comment on above: Performed By: #### L 501.4020, L501.9985, L100.0100, L500.4100, L500.4050, L3100.7870 #### [facility] [address] [place], [address] WBC (Bld) [#/Vol] 8.2 10*3/uL Normal 4.4-11.0 [facility] Comment on above: Performed By: #### L 501.4020, L501.9985, L100.0100, L500.4100, L500.4050, L3100.7870 #### [facility] [address] [place], [address] Absolute lymphocyte countOrd ered By: Mercedes Arellano on 05-10-2023 Lymphocytes Auto (Unsp spec) [#/Vol] 2.61 10*3/uL 0.83-4.51 [facility] Basophil percentageOrdered B y: Mercedes Mccordson on 05-10-2023 Basophils/100 WBC (Bld) 1.0 % 0-1 [facility] Bilirubin [Mass/Vol] 0.30 mg/dL 0.20-1.00 [facility] Comment on above: For patients on eltr ombopag therapy, use of Dimension [place] TBIL is not recommended. Chloride [Moles/Vol] 104 mmol/L 98-107 [facility] Cholesterol [Mass/Vol] 163 mg/dL <200 [facility] Comment on above: <200 mg/dL Desirable 200-240 mg/dL Borderline >240 mg/dL High Risk Eosinophils/100 WBC (Bld) 0.9 % 0-5 [facility] Glucose [Mass/Vol] 166 mg/dL 74-106 [facility] Comment on above: Fasting Glucose resu lt greater than or equal to 126 mg/dL suggests DIABETES MELLITUS per A.D.A. criteria. Neutrophils (Bld) [#/Vol] 6.2 10*3/uL 2.0-7.7 [facility] Neutrophils/100 WBC (Bld) 62.8 % 47-70 [facility] Potassium [Moles/Vol] 4.9 mmol/L 3.5-5.1 [facility] Protein [Mass/Vol] 7.4 g/dL 6.4-8.2 [facility] Sodium [Moles/Vol] 140 mmol/L 136-145 [facility] Triglyceride [Mass/Vol] 246 mg/dL <199 [facility] Comment on above: The drugs N-Acetylcy steine and Metamizole may falsely depress this assay.Serum Triglycerides Reference Interval Normal <150 mg/dL Borderline high 150 - 199 mg/dL High 200 - 499 mg/dL Very High > or = 500 mg/dL WBC (Bld) [#/Vol] 9.9 10*3/uL 4.4-11.0 [facility] Blood erythrocytes count (nu mber/volume)Ordered By: Mercedes Arellano on 05-10-2023 RBC (Bld) [#/Vol] 5.29 10*6/uL 4.6-6.2 [facility] Blood hemoglobin measurement (mass/volume)Ordered By: Mercedes Arellano on 05-10-2023 Hemoglobin (Bld) [Mass/Vol] 14.8 g/dL 13.0-16.5 [facility] Blood lymphocytes/100 leukoc ytesOrdered By: Mercedes Arellano on 05-10-2023 Lymphocytes/100 WBC (Bld) 26.3 % 19-41 [facility] Blood monocytes/100 leukocyt esOrdered By: Mercedes Arellano on 05-10-2023 Monocytes/100 WBC (Bld) 6.9 % 0-10 [facility] Blood platelet mean volumeOr dered By: Mercedes Arellano on 05-10-2023 Platelet mean volume (Bld) [Entitic vol] 9.5 fL 6.2-12.0 [facility] Determination of erythrocyte mean corpuscular volume (MCV)Ordered By: Mercedes Arellano on 05-10-2023 MCV (RBC) [Entitic vol] 87.3 fL 80-94 [facility] Hematocrit Auto (Bld) [Volum e fraction]Ordered By: Mercedes Arellano on 05-10-2023 Hematocrit (Bld) [Volume fraction] 46.2 % 40-54 [facility] - Chemistry and C hemistry - challengeOrdered By: Mercedes Arellano on 05-10-2023 ALP [Catalytic activity/Vol] 113 U/L 45-117 [facility] ALT [Catalytic activity/Vol] 29 U/L 16-61 [facility] CO2 [Moles/Vol] 28.0 mmol/L 21.0-32.0 [facility] Globulin (S) [Mass/Vol] 3.6 g/dL 2.2-4.2 [facility] Urea nitrogen/Creatinine [Mass ratio] 16.5 mg/mg 10-20 [facility] - Hematology and Cell countsOrdered By: Mercedes Arellano on 05-10-2023 Erythrocyte distribution width (RBC) [Entitic vol] 41.5 fL 35.1-43.9 [facility] Erythrocyte distribution width (RBC) [Ratio] 13.1 % 11.6-14.6 [facility] Immature granulocytes/100 WBC (Bld) 2.100 % 0.0-0.9 [facility] Comment on above: IG% - Immature Granu locytes (promyelocytes, myelocytes and metamyelocytes) > 1% indicates that a LEFT SHIFT is Present. MCH (RBC) [Entitic mass] 28.0 pg 27.0-32.0 [facility] Nucleated RBC/100 WBC (Bld) [Ratio] 0 % 0-5 [facility] MCHC Auto (RBC) [Mass/Vol]Or dered By: Mercedes Arellano on 05-10-2023 MCHC (RBC) [Mass/Vol] 32.0 g/dL 32-36 [facility] No Panel InformationOrdered By: Mercedes Arellano on 05-10-2023 Estimated GFR (MDRD) Amer 70 mL/min >60 [facility] Comment on above: GFR Calc Estimated GFR (MDRD) Non-Af Amer 58 mL/min >60 [facility] Comment on above: Non- GFR Calc Prostate Specific Antigen Screen 3.53 ng/mL 0.00-4.00 [facility] Comment on above: This test was perfor med using the TPSA assay method for [email or web address] chemistry system. Values obtained with differentassay methods cannot be used interchangably.When changing PSA assays in the course of monitoring apatient, additional sequential testing should be carriedout to confirm baseline values. Platelets bldOrdered By: Kareem Arellano on 05-10-2023 Platelets (Bld) [#/Vol] 302 10*3/uL 150-450 [facility] Serum or plasma albumin chance urement (mass/volume)Ordered By: Mercedes Arellano on 05-10-2023 Albumin [Mass/Vol] 3.8 g/dL 3.2-5.0 [facility] Serum or plasma albumin/glob ulin mass ratioOrdered By: Mercedes Arellano on 05-10-2023 Albumin/Globulin [Mass ratio] 1.1 {ratio} 0.9-2.4 [facility] Serum or plasma calcium chance urement (mass/volume)Ordered By: Mercedes Arellano on 05-10-2023 Calcium [Mass/Vol] 9.4 mg/dL 8.5-10.1 [facility] Serum or plasma cholesterol in HDL measurement (mass/volume)Ordered By: Mercedes Arellano on 05-10-2023 Cholesterol in HDL [Mass/Vol] 44 mg/dL >40 [facility] Comment on above: The drugs N-Acetylcy steine and Metamizole may falsely depress this assay. Reference Range HDL <40 mg/dL Low HDL Cholesterol HDL >or= 60 mg/dL High HDL Cholesterol Serum or plasma cholesterol in VLDL measurement (mass/volume)Ordered By: Mercedes Arellano on 05-10-2023 Cholesterol in VLDL [Mass/Vol] 49 mg/dL 5-40 [facility] Serum or plasma creatinine m easurement (mass/volume)Ordered By: Mercedes Arellano on 05-10-2023 Creatinine [Mass/Vol] 1.33 mg/dL 0.70-1.30 [facility] Comment on above: The validity of the calculated GFR & GFRAA in patients over 70 years has not been determined. Clinical correlation is essential. Serum or plasma low density lipoprotein (LDL) cholesterol measurement (mass/volume)Ordered By: Mercedes Arellano on 05-10-2023 Cholesterol in LDL [Mass/Vol] 70 mg/dL 0-130 [facility] Serum or plasma urea nitroge n measurement (mass/volume)Ordered By: Mercedes Arellano on 05-10-2023 Urea nitrogen [Mass/Vol] 22 mg/dL 7-18 [facility] Thin prep Papanicolaou smear with manual screeningOrdered By: Mercedes Arellano on 05-10-2023 Thin prep Papanicolaou smear with manual screening 17 U/L 15-37 [facility] Thin prep Papanicolaou smear with manual screening 8 5-15 [facility] Whole blood hemoglobin A1c/t otal hemoglobin ratio (mass fraction)Ordered By: Mercedes Arellano on 05-10-2023 HbA1c (Bld) [Mass fraction] 9.3 % 3.8-5.6 [facility] Comment on above: Normal < 5.7 % Predi abetic 5.7 - 6.4 % Diabetic >or= 6.5 % Please note range changes. CBC W Auto Differential pane l (Bld)on 05-22-2022 Basophils (Bld) [#/Vol] 0.03 10*3/uL Normal <0.11 [facility] Comment on above: Order Comment: Speci men Type: BLOOD SPECIMEN Ordering Facility: [facility] Address: [address] [place] [address] Performed By: #### 5 7021-8 #### [facility] CLIA [id number] [address] Basophils/100 WBC (Bld) 0.4 % Normal [facility] Comment on above: Order Comment: Speci men Type: BLOOD SPECIMEN Ordering Facility: [facility] Address: [address] [place] [address] Performed By: #### 5 7021-8 #### [facility] CLIA [id number] [address] [place] Differential cell count method Nom (Bld) Auto Normal [facility] Comment on above: Order Comment: Speci men Type: BLOOD SPECIMEN Ordering Facility: [facility] Address: [address] [place] [address] Performed By: #### 5 7021-8 #### [facility] CLIA [id number] [address] [place] [address] [place] Eosinophils (Bld) [#/Vol] 0.09 10*3/uL Normal <0.46 [facility] Comment on above: Order Comment: Speci men Type: BLOOD SPECIMEN Ordering Facility: [facility] Address: [address] [place] [address] Performed By: #### 5 7021-8 #### [facility] CLIA [id number] [address] [place] [facility] Eosinophils/100 WBC (Bld) 1.3 % Normal [facility] Comment on above: Order Comment: Speci men Type: BLOOD SPECIMEN Ordering Facility: [facility] Address: [address] [place] [address] Performed By: #### 5 7021-8 #### [facility] CLIA [id number] [address] [place] Erythrocyte distribution width (RBC) [Ratio] 13.6 % Normal 11.5-15.0 [facility] Comment on above: Order Comment: Speci men Type: BLOOD SPECIMEN Ordering Facility: [facility] Address: [address] [place] [address] Performed By: #### 5 7021-8 #### [facility] CLIA [id number] [address] [place] [address] [place] Hematocrit (Bld) [Volume fraction] 52.8 % High 39.0-51.0 [facility] Comment on above: Order Comment: Speci men Type: BLOOD SPECIMEN Ordering Facility: [facility] Address: [address] [place] [address] Performed By: #### 5 7021-8 #### [facility] CLIA [id number] [address] [place] [address] [place] Hemoglobin (Bld) [Mass/Vol] 16.8 g/dL Normal 13.0-17.0 [facility] Comment on above: Order Comment: Speci men Type: BLOOD SPECIMEN Ordering Facility: [facility] Address: [address] [place] [address] Performed By: #### 5 7021-8 #### [facility] CLIA [id number] [address] [place] [address] [place] Immature granulocytes (Bld) [#/Vol] 0.04 10*3/uL Normal <0.10 [facility] Comment on above: Order Comment: Speci men Type: BLOOD SPECIMEN Ordering Facility: [facility] Address: [address] [place] [address] Performed By: #### 5 7021-8 #### [facility] CLIA [id number] [address] [place] Immature granulocytes/100 WBC (Bld) 0.6 % Normal [facility] Comment on above: Order Comment: Speci men Type: BLOOD SPECIMEN Ordering Facility: [facility] Address: [address] [place] [address] Performed By: #### 5 7021-8 #### [facility] CLIA [id number] [address] [place] [address] [place] Lymphocytes (Bld) [#/Vol] 2.08 10*3/uL Normal 1.00-4.00 [facility] Comment on above: Order Comment: Speci men Type: BLOOD SPECIMEN Ordering Facility: [facility] Address: [address] [place] [address] Performed By: #### 5 7021-8 #### [facility] CLIA [id number] [address] [place] Lymphocytes/100 WBC (Bld) 30.1 % Normal [facility] Comment on above: Order Comment: Speci men Type: BLOOD SPECIMEN Ordering Facility: [facility] Address: [address] [place] [address] Performed By: #### 5 7021-8 #### [facility] CLIA [id number] [address] [place] [address] [place] MCH (RBC) [Entitic mass] 28.0 pg Normal 26.0-34.0 [facility] Comment on above: Order Comment: Speci men Type: BLOOD SPECIMEN Ordering Facility: [facility] Address: [address] [place] [address] Performed By: #### 5 7021-8 #### [facility] CLIA [id number] [address] [place] [address] [place] MCHC (RBC) [Mass/Vol] 31.8 g/dL Normal 30.5-36.0 [facility] Comment on above: Order Comment: Speci men Type: BLOOD SPECIMEN Ordering Facility: [facility] Address: [address] [place] [address] Performed By: #### 5 7021-8 #### [facility] CLIA [id number] [address] [place] MCV (RBC) [Entitic vol] 88.1 fL Normal 80.0-100.0 [facility] Comment on above: Order Comment: Speci men Type: BLOOD SPECIMEN Ordering Facility: [facility] Address: [address] [place] [address] Performed By: #### 5 7021-8 #### [facility] CLIA [id number] [address] [place] [address] [place] Monocytes (Bld) [#/Vol] 0.50 10*3/uL Normal <0.87 [facility] Comment on above: Order Comment: Speci men Type: BLOOD SPECIMEN Ordering Facility: [facility] Address: [address] [place] [address] Performed By: #### 5 7021-8 #### [facility] CLIA [id number] [address] [place] [address] [place] Monocytes/100 WBC (Bld) 7.2 % Normal [facility] Comment on above: Order Comment: Speci men Type: BLOOD SPECIMEN Ordering Facility: [facility] Address: [address] [place] [address] Performed By: #### 5 7021-8 #### [facility] CLIA [id number] [address] [place] [address] [place] Neutrophils (Bld) [#/Vol] 4.18 10*3/uL Normal 1.45-7.50 [facility] Comment on above: Order Comment: Speci men Type: BLOOD SPECIMEN Ordering Facility: [facility] Address: [address] [place] [address] Performed By: #### 5 7021-8 #### [facility] CLIA [id number] [address] [place] [address] [place] Neutrophils/100 WBC (Bld) 60.4 % Normal [facility] Comment on above: Order Comment: Speci men Type: BLOOD SPECIMEN Ordering Facility: [facility] Address: [address] [place] [address] Performed By: #### 5 7021-8 #### [facility] CLIA [id number] [address] [place] [address] [place] Nucleated RBC (Bld) [#/Vol] Normal [facility] Comment on above: Order Comment: Speci men Type: BLOOD SPECIMEN Ordering Facility: [facility] Address: [address] [place] [address] Performed By: #### 5 7021-8 #### [facility] CLIA [id number] [address] [place] [address] [place] Nucleated RBC/100 WBC (Bld) [Ratio] Normal [facility] Comment on above: Order Comment: Speci men Type: BLOOD SPECIMEN Ordering Facility: [facility] Address: [address] [place] [address] Performed By: #### 5 7021-8 #### [facility] CLIA [id number] [address] [place] [address] [place] Platelet mean volume (Bld) [Entitic vol] 9.1 fL Normal 9.0-12.7 [facility] Comment on above: Order Comment: Speci men Type: BLOOD SPECIMEN Ordering Facility: [facility] Address: [address] [place] [address] Performed By: #### 5 7021-8 #### [facility] CLIA [id number] [address] [place] [address] [place] Platelets (Bld) [#/Vol] 233 10*3/uL Normal 150-400 [facility] Comment on above: Order Comment: Speci men Type: BLOOD SPECIMEN Ordering Facility: [facility] Address: [address] [place] [address] Performed By: #### 5 7021-8 #### [facility] CLIA [id number] [address] [place] [address] [place] RBC (Bld) [#/Vol] 5.99 10*6/uL Normal 4.20-6.00 [facility] Comment on above: Order Comment: Speci men Type: BLOOD SPECIMEN Ordering Facility: [facility] Address: [address] [place] [address] Performed By: #### 5 7021-8 #### [facility] CLIA [id number] [address] [place] [address] [place] WBC (Bld) [#/Vol] 6.92 10*3/uL Normal 3.70-11.00 [facility] Comment on above: Order Comment: Speci men Type: BLOOD SPECIMEN Ordering Facility: [facility] Address: [address] [place] [address] Performed By: #### 5 7021-8 #### [facility] CLIA [id number] [address] [place] [address] [facility] Comprehensive metabolic 2000 panelon 05-22-2022 Albumin [Mass/Vol] 4.5 g/dL Normal 3.9-4.9 [facility] Comment on above: Order Comment: Speci men Type: BLOOD SPECIMEN Ordering Facility: [facility] Address: [address] [place] [address] Performed By: #### 2 4323-8, 22388-6 #### [facility] CLIA [id number] [address] [place] ALP [Catalytic activity/Vol] 95 U/L Normal 38-113 [facility] Comment on above: Order Comment: Speci men Type: BLOOD SPECIMEN Ordering Facility: [facility] Address: [address] [place] [address] Performed By: #### 2 4323-8, 25679-6 #### [facility] CLIA [id number] [address] [place], [place] [address] [place] [address] [place] ALT With P-5'-P [Catalytic activity/Vol] 27 U/L Normal 10-54 [facility] Comment on above: Order Comment: Speci men Type: BLOOD SPECIMEN Ordering Facility: [facility] Address: [address] [place] [address] Performed By: #### 2 4323-8, 83810-7 #### [facility] CLIA [id number] [address] [place] [address] [place] Anion gap [Moles/Vol] 14 mmol/L Normal 9-18 [facility] Comment on above: Order Comment: Speci men Type: BLOOD SPECIMEN Ordering Facility: [facility] Address: [address] [place] [address] Performed By: #### 2 4323-8, 26192-7 #### [facility] CLIA [id number] [address] [place] [address] [place] AST With P-5'-P [Catalytic activity/Vol] 19 U/L Normal 14-40 [facility] Comment on above: Order Comment: Speci men Type: BLOOD SPECIMEN Ordering Facility: [facility] Address: [address] [place] [address] Performed By: #### 2 4323-8, 54847-1 #### [facility] CLIA [id number] [address] [place] [address] [place] Bilirubin [Mass/Vol] 0.3 mg/dL Normal 0.2-1.3 [facility] Comment on above: Order Comment: Speci men Type: BLOOD SPECIMEN Ordering Facility: [facility] Address: [address] [place] [address] Performed By: #### 2 4323-8, 53368-0 #### [facility] CLIA [id number] [address] [place] [address] [place] Calcium [Mass/Vol] 9.5 mg/dL Normal 8.5-10.2 [facility] Comment on above: Order Comment: Speci men Type: BLOOD SPECIMEN Ordering Facility: [facility] Address: [address] [place] [address] Performed By: #### 2 4323-8, 45842-3 #### [facility] CLIA [id number] [address] [place] [address] [place] Chloride [Moles/Vol] 100 mmol/L Normal 97-105 [facility] Comment on above: Order Comment: Speci men Type: BLOOD SPECIMEN Ordering Facility: [facility] Address: [address] [place] [address] Performed By: #### 2 4323-8, 19299-3 #### [facility] CLIA [id number] [address] [place] [address] [place] CO2 [Moles/Vol] 22 mmol/L Normal 22-30 [facility] Comment on above: Order Comment: Speci men Type: BLOOD SPECIMEN Ordering Facility: [facility] Address: [address] [place] [address] Performed By: #### 2 4323-8, 43018-9 #### [facility] CLIA [id number] [address] [place] [address] [place] Creatinine [Mass/Vol] 1.21 mg/dL Normal 0.73-1.22 [facility] Comment on above: Order Comment: Milton jerez Type: BLOOD SPECIMEN Ordering Facility: [facility] Address: [address] [place] [address] Performed By: #### 2 4323-8, 08806-1 #### [facility] CLIA [id number] [address] [place] [address] [place] ESTIMATED GLOMERULAR FILTRATION RATE 68 mL/min/1.73m??? Normal >=60 [facility] Comment on above: Order Comment: Milton jerez Type: BLOOD SPECIMEN Ordering Facility: [facility] Address: [address] [place] [address] Result Comment: Iva mated Glomerular Filtration Rate [...] actual GFR. Performed By: #### 2 4323-8, 43960-9 #### [facility] CLIA [id number] [address] [place], [place] [id number] [place] Glucose [Mass/Vol] 164 mg/dL High 74-99 [facility] Comment on above: Order Comment: Milton jerez Type: BLOOD SPECIMEN Ordering Facility: [facility] Address: [address] [place] [address] Result Comment: The [place] Diabetes Association (ADA) provides guidance for cutoff [...] Standards of Medical Care in Diabetes 2016, [place] Diabetes Association. Diabetes Care. 2016.39(Suppl 1). Performed By: #### 2 4323-8, 39516-5 #### [facility] CLIA [id number] [address] [place] [address] [place] Potassium [Moles/Vol] 4.3 mmol/L Normal 3.7-5.1 [facility] Comment on above: Order Comment: Speci men Type: BLOOD SPECIMEN Ordering Facility: [facility] Address: [address] [place] [address] Performed By: #### 2 4328, 02966-8 #### [facility] CLIA [id number] [address] [place] [address] [place] Protein [Mass/Vol] 7.2 g/dL Normal 6.3-8.0 [facility] Comment on above: Order Comment: Speci men Type: BLOOD SPECIMEN Ordering Facility: [facility] Address: [address] [place] [address] Performed By: #### 2 4328, 18426-9 #### [facility] CLIA [id number] [address] [place] [address] [place] Sodium [Moles/Vol] 136 mmol/L Normal 136-144 [facility] Comment on above: Order Comment: Speci men Type: BLOOD SPECIMEN Ordering Facility: [facility] Address: [address] [place] [address] Performed By: #### 2 43238, 53024-2 #### [facility] CLIA [id number] [address] [place] [address] [place] Urea nitrogen [Mass/Vol] 22 mg/dL Normal 9-24 [facility] Comment on above: Order Comment: Speci men Type: BLOOD SPECIMEN Ordering Facility: [facility] Address: [address] [place] [address] Performed By: #### 2 4323-8, 69157-7 #### [facility] CLIA [id number] [address] [place] [address] [place] HbA1c (Bld)on 05-22-2022 Average glucose Estimated from glycated hemoglobin (Bld) [Mass/Vol] 186 mg/dL Normal [facility] Comment on above: Order Comment: Milton jerez Type: BLOOD SPECIMEN Ordering Facility: [facility] Address: [address] [place] [address] Result Comment: eAG: (Estimated average glucose) is a calculated value from HgbA1c and is labor representative of the average blood glucose level in the last 2-3 month period. Performed By: #### 5 5454-3 #### [facility] CLIA [id number] [address] HbA1c (Bld) [Mass fraction] 8.1 % High 4.3-5.6 [facility] Comment on above: Order Comment: Milton jerez Type: BLOOD SPECIMEN Ordering Facility: [facility] Address: [address] [place] [address] Result Comment: [place] Diabetes Association guidelines indicate that patients with HgbA1c in the range 5.7-6.4% are at increased risk for development of diabetes, and intervention by lifestyle modification may be beneficial. HgbA1c greater or equal to 6.5% is considered diagnostic of diabetes. Performed By: #### 5 5454-3 #### [facility] CLIA [id number] [address] OF [place] Lipid 1996 panelon Cholesterol [Mass/Vol] 165 mg/dL Normal <200 [facility] Comment on above: Order Comment: Milton jerez Type: BLOOD SPECIMEN Ordering Facility: [facility] Address: [address] [place] [address] Result Comment: <200 mg/dL, Desirable 200-239 mg/dL, Borderline high >239 mg/dL, High Performed By: #### 2 4323-8, 56126-5 #### [facility] CLIA [id number] [address] [place] [address] [place] Cholesterol in HDL [Mass/Vol] 47 mg/dL Normal >39 [facility] Comment on above: Order Comment: Milton jerez Type: BLOOD SPECIMEN Ordering Facility: [facility] Address: [address] [place] [address] Result Comment: 40-5 9 mg/dL, Acceptable >59 mg/dL, High: Negative risk factor for coronary heart disease <40 mg/dL, Low: Positive risk factor for coronary heart disease Performed By: #### 2 4323-8, 63909-3 #### [facility] CLIA [id number] [address] [place] [address] [place] Cholesterol in LDL [Mass/Vol] 93 mg/dL Normal <100 [facility] Comment on above: Order Comment: Milton jerez Type: BLOOD SPECIMEN Ordering Facility: [facility] Address: [address] [place] [address] Result Comment: <100 mg/dL, Optimal 100-129 mg/dL, Near optimal/above optimal 130-159 mg/dL, Borderline high 160-189 mg/dL, High >189 mg/dL, Very high Secondary prevention optimal LDL Cholesterol levels are recommended to be < 70 mg/dL Performed By: #### 2 4323-8, 73209-5 #### [facility] CLIA [id number] [address] [place] [address] [facility] Cholesterol in LDL/Cholesterol in HDL [Mass ratio] 1.98 {ratio} Normal <2.54 [facility] Comment on above: Order Comment: Milton jerez Type: BLOOD SPECIMEN Ordering Facility: [facility] Address: [address] [place] [address] Result Comment: Refe rence: 1. National Cholesterol Education Program ATP III Guideline At-A-Glance Quick Desk Reference: National Heart, Lung, and Blood [place]. National Institutes of Health. 2001: NIH Publication No. 01-3305. 2. An International Atherosclerosis Society position paper: global recommendations for the management of dyslipidemia: executive summary, Atherosclerosis. 2014: 232(2):410-413. Performed By: #### 2 4323-8, 09486-5 #### [facility] CLIA [id number] [address] [place] [address] [place] Cholesterol in VLDL [Mass/Vol] 25 mg/dL Normal <30 [facility] Comment on above: Order Comment: Milton meri Type: BLOOD SPECIMEN Ordering Facility[facility] Address: [address] [place] [address] Performed By: #### 2 4323-8, 31666-9 #### [facility] CLIA [id number] [address] [place] [address] [facility] OF [place] Cholesterol non HDL [Mass/Vol] 118 mg/dL Normal <130 [facility] Comment on above: Order Comment: Jaisoni men Type: BLOOD SPECIMEN Ordering Facility: [facility] Address: [address] [place] [address] Result Comment: <130 mg/dL, Optimal 130-159 mg/dL, Near optimal/above optimal 160-189 mg/dL, Borderline high 190-219 mg/dL, High >219 mg/dL, Very high Secondary prevention optimal non HDL Cholesterol levels are recommended to be <100 mg/dL Performed By: #### 2 4323-8, 48072-4 #### [facility] CLIA [id number] [address] [place] [address] [facility] Cholesterol.total/Ch olesterol in HDL [Mass ratio] 3.51 {ratio} Normal <5.10 [facility] Comment on above: Order Comment: Milton meri Type: BLOOD SPECIMEN Ordering Facility: [facility] Address: [address] [place] [address] Performed By: #### 2 4323-8, 76014-7 #### [facility] CLIA [id number] [address] [place] [id number] [facility] OF [place] FASTING TIME 12 hrs Normal [facility] Comment on above: Order Comment: Milton men Type: BLOOD SPECIMEN Ordering Facility: [facility] Address: [address] [place] [address] Performed By: #### 2 4323-8, 83503-2 #### [facility] CLIA [id number] [address] [place] [address] [place] Triglyceride [Mass/Vol] 126 mg/dL Normal <150 [facility] Comment on above: Order Comment: Jaisoni men Type: BLOOD SPECIMEN Ordering Facility: [facility] Address: [address] [place], [place] [id number] Result Comment: <150 mg/dL, Normal 150-199 mg/dL, Borderline high 200-499 mg/dL, High >499 mg/dL, Very high Performed By: #### 2 4323-8, 04739-4 #### [facility] CLIA [id number] [address] [place] [address] [place] PSA/PROSTSPECAG SCRNon 05-22 Prostate specific Ag [Mass/Vol] 2.70 ng/mL High <2.60 [facility] Comment on above: Order Comment: Speci men Type: BLOOD SPECIMEN Ordering Facility: [facility] Address: [address] [place] [address] Result Comment: Brett roselyn PSA test methodology used is the Electrochemiluminescence [...] ng/mL. Performed By: #### P SAS1 #### [facility] CLIA [id number] [address] [place] [address] [place] TESTOSTERONE, FREE AND TOTAL on 05-22-2022 TESTOSTERONE, FREE, S 7.48 ng/dL Normal 3.67-13.9 [facility] Comment on above: Order Comment: Milton jerez Type: BLOOD SPECIMEN Ordering Facility: [facility] Address: [address] [place] [address] Result Comment: ADDITIONAL INFORMATION This test was developed and its performance characteristics determined by [facility] in a manner consistent with CLIA requirements. This test has not been cleared or approved by the U.S. Food and Drug Administration. Performed By: #### T FTEST #### [facility] CLIA [id number] [address] [place] [address] TESTOSTERONE, TOTAL, S 221 ng/dL Low 240-950 [facility] Comment on above: Order Comment: Speci men Type: BLOOD SPECIMEN Ordering Facility: [facility] Address: [address] [place] [address] Result Comment: ADDITIONAL INFORMATION Testing performed by Liquid Chromatography-Tandem Mass Spectrometry (LC-MS/MS). This test was developed and its performance characteristics determined by [facility] in a manner consistent with CLIA requirements. This test has not been cleared or approved by the U.S. Food and Drug Administration. Test Performed by: [facility] [address] [place] [address] Billing Rep: Pete Lord M.D. Ph.D.; CLIA# [id number] Performed By: #### T FTEST #### [facility] CLIA [id number] [address] [place] [address] Basophil percentageon 2021 Bilirubin [Mass/Vol] 0.30 mg/dL 0.20-1.00 [facility] Work Phone: Comment on above: For patients on eltr ombopag therapy, use of Dimension [place] TBIL is not recommended. Chloride [Moles/Vol] 102 mmol/L 98-107 [facility] Work Phone: [phone] Cholesterol [Mass/Vol] 222 mg/dL <200 [facility] Work Phone: [phone] Comment on above: <200 mg/dL Desirable 200-240 mg/dL Borderline >240 mg/dL High Risk Glucose [Mass/Vol] 250 mg/dL 74-106 [facility] Work Phone: [phone] Comment on above: Glucose result great er than or equal to 200 mg/dLsuggests DIABETES MELLITUS per A.D.A. criteria. Potassium [Moles/Vol] 5.1 mmol/L 3.5-5.1 [facility] Work Phone: [phone] Protein [Mass/Vol] 7.4 g/dL 6.4-8.2 [facility] Work Phone: [phone] Sodium [Moles/Vol] 137 mmol/L 136-145 [facility] Work Phone: [phone] Triglyceride [Mass/Vol] 673 mg/dL <199 [facility] Work Phone: [phone] Comment on above: The drugs N-Acetylcy steine and Metamizole may falsely depress this assay. TRIGLYCERIDE IS GREATER THAN 400 mg/dL. LDL RESULT IS INVALID AND WILL NOT BE REPORTED.Serum Triglycerides Reference Interval Normal <150 mg/dL Borderline high 150 - 199 mg/dL High 200 - 499 mg/dL Very High > or = 500 mg/dL Laboratory - Chemistry and C hemistry - challengeon 01-20-2022 Bilirubin Ql (U) Negative [facility] Work Phone: [phone] Glucose Ql (U) 500 g/dL [facility] Work Phone: [phone] Ketones Ql (U) Negative [facility] Work Phone: [phone] pH (U) 5.5 [pH] [facility] Work Phone: [phone] Specific gravity (U) [Rel density] 1.015 [facility] Work Phone: [phone] Urobilinogen (U) [Mass/Vol] 0.0557804 mg/dL [facility] Work Phone: ALP [Catalytic activity/Vol] 147 U/L 45-117 [facility] Work Phone: ALT [Catalytic activity/Vol] 49 U/L 16-61 [facility] Work Phone: [phone] CO2 [Moles/Vol] 29.0 mmol/L 21.0-32.0 [facility] Work Phone: [phone] Globulin (S) [Mass/Vol] 3.5 g/dL 2.2-4.2 [facility] Work Phone: Urea nitrogen/Creatinine [Mass ratio] 12.7 mg/mg 10-20 [facility] Work Phone: Laboratory - Hematology and Cell countson 01-20-2022 HbA1c (Bld) [Mass fraction] 10.8 % 4.2-6.3 [facility] Work Phone: [phone] Hemoglobin Ql (U) Negative [facility] Work Phone: Laboratory - Specimen inform ationon 01-20-2022 Clarity (U) Clear [facility] Work Phone: [phone] Color (U) Yellow [facility] Work Phone: [phone] Laboratory - Urinalysison Nitrite Ql (U) Negative [facility] Work Phone: [phone] Protein Ql (U) Negative [facility] Work Phone: [phone] No Panel Informationon 01-20 Urine Leukocytes Negatve [facility] Work Phone: Urine Non-Hemolyzed Blood [facility] Work Phone: Estimated GFR (MDRD) Amer 65 mL/min >60 [facility] Work Phone: Comment on above: GFR Calc Estimated GFR (MDRD) Non-Af Amer 54 mL/min >60 [facility] Work Phone: Comment on above: Non- GFR Calc Serum or plasma albumin chance urement (mass/volume)on 01-20-2022 Albumin [Mass/Vol] 3.9 g/dL 3.2-5.0 [facility] Work Phone: Serum or plasma albumin/glob ulin mass ratioon 01-20-2022 Albumin/Globulin [Mass ratio] 1.1 {ratio} 0.9-2.4 [facility] Work Phone: Serum or plasma calcium chance urement (mass/volume)on 01-20-2022 Calcium [Mass/Vol] 9.8 mg/dL 8.5-10.1 [facility] Work Phone: Serum or plasma cholesterol in HDL measurement (mass/volume)on 01-20-2022 Cholesterol in HDL [Mass/Vol] 40 mg/dL >40 [facility] Work Phone: Comment on above: The drugs N-Acetylcy steine and Metamizole may falsely depress this assay. Reference Range HDL <40 mg/dL Low HDL Cholesterol HDL >or= 60 mg/dL High HDL Cholesterol Serum or plasma cholesterol in VLDL measurement (mass/volume)on 01-20-2022 Cholesterol in VLDL [Mass/Vol] TNP [facility] Work Phone: Comment on above: Test not performed Serum or plasma creatinine m easurement (mass/volume)on 01-20-2022 Creatinine [Mass/Vol] 1.42 mg/dL 0.70-1.30 [facility] Work Phone: Comment on above: The validity of the calculated GFR & GFRAA in patients over 70 years has not been determined. Clinical correlation is essential. Serum or plasma low density lipoprotein (LDL) cholesterol measurement (mass/volume)on 01-20-2022 Cholesterol in LDL [Mass/Vol] TNP [facility] Work Phone: Comment on above: Test not performed Serum or plasma urea nitroge n measurement (mass/volume)on 01-20-2022 Urea nitrogen [Mass/Vol] 18 mg/dL 7-18 [facility] Work Phone: Thin prep Papanicolaou smear with manual screeningon 01-20-2022 Thin prep Papanicolaou smear with manual screening 22 U/L 15-37 [facility] Work Phone: Thin prep Papanicolaou smear with manual screening 6 5-15 [facility] Work Phone: ED PROV NOTEon 01-05-2022 ED PROV NOTE HNO ID: [id number] Author: Quin Cooper MD Service: Emergency Medicine [...] reviewed and are negative. Physical Exam Vitals [01/05/221811] BP Pulse Temp Temp src Resp SpO2 Weight Height 137/98 (!) 116 36.5 ?C (97.7 ?F) Temporal 16 96 % 91.6 kg (202 lb) 1.727 m (5' 8) Physical Exam Vitals and nursing note reviewed. [...] any question (more content not included)... Normal [facility] Basic Metabolic Panelon - Anion gap [Moles/Vol] 15 mmol/L Normal 9-15 [facility] Comment on above: Performed By: #### B MP #### [facility] [address] [place] [address] Calcium [Mass/Vol] 9.0 mg/dL Normal 8.5-9.9 [facility] Comment on above: Performed By: #### B MP #### [facility] [address] [place] [address] Chloride [Moles/Vol] 100 mmol/L Normal 95-107 [facility] Comment on above: Performed By: #### B MP #### [facility] [address] [place] [address] CO2 [Moles/Vol] 21 mmol/L Normal 20-31 [facility] Comment on above: Performed By: #### B MP #### [facility] [address] [place] [address] Creatinine [Mass/Vol] 1.19 mg/dL Normal 0.70-1.20 [facility] Comment on above: Performed By: #### B MP #### [facility] [address] [place] [address] GFR >60.0 Normal >60 [facility] Comment on above: Result Comment: >60 mL/min/1.73m2 EGFR, calc. for ages 18 and older using the MDRD formula (not corrected for weight), is valid for stable renal function. Performed By: #### B MP #### [facility] [address] [place] [address] GFR/1.73 sq M.predicted among blacks MDRD (S/P/Bld) [Vol rate/Area] mL/min/{1.73_m2} Normal >60 [facility] Comment on above: Result Comment: >60 mL/min/1.73m2 EGFR, calc. for ages 18 and older using the MDRD formula (not corrected for weight), is valid for stable renal function. Performed By: #### B MP #### [facility] [address] [place] [address] Glucose [Mass/Vol] 220 mg/dL Critically high 70-[address] [facility] Comment on above: Performed By: #### B MP #### [facility] [address] [place] [address] Potassium [Moles/Vol] 4.0 mmol/L Normal 3.4-4.9 [facility] Comment on above: Performed By: #### B MP #### [facility] [address] [place] [address] Sodium [Moles/Vol] 136 mmol/L Normal 135-144 [facility] Comment on above: Performed By: #### B MP #### [facility] [address] [place] [address] Urea nitrogen [Mass/Vol] 22 mg/dL Normal 8-23 [facility] Comment on above: Performed By: #### B MP #### [facility] [address] [place] [address] Anion gap [Moles/Vol] 15 mmol/L [facility] Calcium [Mass/Vol] 9.0 mg/dL 8.5 - 9.9 mg/dL [facility] Chloride [Moles/Vol] 100 mmol/L [facility] CO2 [Moles/Vol] 21 mmol/L [facility] Creatinine [Mass/Vol] 1.19 mg/dL 0.70 - 1.20 mg/dL [facility] GFR >60.0 >60 [facility] Comment on above: >60 mL/min/1.73m2 EG FR, calc. for ages 18 and older using the MDRD formula (not corrected for weight), is valid for stable renal function. GFR Non- >60.[address] >60 [facility] Comment on above: >60 mL/min/1.73m2 EG FR, calc. for ages 18 and older using the MDRD formula (not corrected for weight), is valid for stable renal function. Glucose [Mass/Vol] 220 mg/dL High 70 - 99 mg/dL [facility] Interpretation and review of laboratory results Abnormal [facility] Potassium [Moles/Vol] 4.0 mmol/L [facility] Sodium [Moles/Vol] 136 mmol/L [facility] Urea nitrogen (BldV) [Mass/Vol] 22 mg/dL 8 - 23 mg/dL [facility] CBC With Platelet and Differ entialon 09-14-2021 Basophils (Bld) [#/Vol] 0.1 10*3/uL Normal 0.0-0.2 [facility] Comment on above: Performed By: #### C BCWD #### [facility] [address] [place] [address] Basophils/100 WBC (Bld) 1.1 % Normal [facility] Comment on above: Performed By: #### C BCWD #### [facility] [address] [place] [address] Eosinophils (Bld) [#/Vol] 0.1 10*3/uL Normal 0.0-0.7 [facility] Comment on above: Performed By: #### C BCWD #### [facility] [address] [place] [address] Eosinophils/100 WBC (Bld) 0.8 % Normal [facility] Comment on above: Performed By: #### C BCWD #### [facility] [address] [place] [address] Erythrocyte distribution width (RBC) [Ratio] 13.8 % Normal 11.5-14.5 [facility] Comment on above: Performed By: #### C BCWD #### [facility] [address] [place] [address] Hematocrit (Bld) [Volume fraction] 47.1 % Normal 42.0-52.0 [facility] Comment on above: Performed By: #### C BCWD #### [facility] [address] [place] [address] Hemoglobin (Bld) [Mass/Vol] 15.8 g/dL Normal 14.0-18.0 [facility] Comment on above: Performed By: #### C BCWD #### [facility] [address] [place] [address] Lymphocytes (Bld) [#/Vol] 1.7 10*3/uL Normal 1.0-4.8 [facility] Comment on above: Performed By: #### C BCWD #### [facility] [address] [place] [address] Lymphocytes/100 WBC (Bld) 26.7 % Normal [facility] Comment on above: Performed By: #### C BCWD #### [facility] [address] [place] [address] MCH (RBC) [Entitic mass] 28.4 pg Normal 27.0-31.3 [facility] Comment on above: Performed By: #### C BCWD #### [facility] [address] [place] [address] MCHC 33.5 % Normal 33.0-37.0 [facility] Comment on above: Performed By: #### C BCWD #### [facility] [address] [place] [address] MCV (RBC) [Entitic vol] 84.9 fL Normal 80.0-100.0 [facility] Comment on above: Performed By: #### C BCWD #### [facility] [address] [place] [address] Monocytes (Bld) [#/Vol] 0.5 10*3/uL Normal 0.2-0.8 [facility] Comment on above: Performed By: #### C BCWD #### [facility] [address] [place] [address] Monocytes/100 WBC (Bld) 8.0 % Normal [facility] Comment on above: Performed By: #### C BCWD #### [facility] [address] [place] [address] Neutrophils (Bld) [#/Vol] 4.1 10*3/uL Normal 1.4-6.5 [facility] Comment on above: Performed By: #### C BCWD #### [facility] [address] [place] [address] Neutrophils/100 [facility] (Bld) 63.4 % Normal [facility] Comment on above: Performed By: #### C BCWD #### [facility] [address] [place] [address] Platelets (Bld) [#/Vol] 199 10*3/uL Normal 130-400 [facility] Comment on above: Performed By: #### C BCWD #### [facility] [address] [place] [address] RBC (Bld) [#/Vol] 5.54 10*6/uL Normal 4.70-6.10 [facility] Comment on above: Performed By: #### C BCWD #### [facility] [address] [place] [address] WBC (Bld) [#/Vol] 6.4 10*3/uL Normal 4.8-10.8 [facility] Comment on above: Performed By: #### C BCWD #### [facility] [address] [place] [address] CBC with Auto Differentialon 09-14-2021 Basophils (Bld) [#/Vol] 0.1 10*3/uL 0.0 - 0.2 K/uL [employer] Basophils/100 WBC (Bld) 1.1 % [employer] Eosinophils (Bld) [#/Vol] 0.1 10*3/uL 0.0 - 0.7 K/uL [employer] Eosinophils/100 WBC (Bld) 0.8 % [facility] Hematocrit (Bld) [Volume fraction] 47.1 % 42.0 - 52.0 % [facility] Hemoglobin.gastroint estinal spec 1 Ql (Stl) 15.8 g/dL 14.0 - 18.0 g/dL [facility] Lymphocytes (Bld) [#/Vol] 1.7 10*3/uL 1.0 - 4.8 K/uL [facility] Lymphocytes/100 WBC (Bld) 26.7 % [facility] MCH (RBC) [Entitic mass] 28.4 pg 27.0 - 31.[address] [facility] MCHC (RBC) [Mass/Vol] 33.5 % 33.0 - 37.0 % [facility] MCV (RBC) [Entitic vol] 84.9 fL 80.0 - 100.[address] [facility] Monocytes (Bld) [#/Vol] 0.5 10*3/uL 0.2 - 0.8 K/uL [facility] Monocytes/100 WBC (Bld) 8.0 % [facility] Neutrophils Absolute 4.1 K/uL 1.4 - 6 .5 K/uL [facility] Neutrophils/100 WBC (Bld) 63.4 % [facility] Platelet distribution width (Bld) [Ratio] 13.8 % 11.5 - 14.5 % [facility] Platelets (Bld) [#/Vol] 199 10*3/uL 130 - 400 K/uL [facility] RBC (Bld) [#/Vol] 5.54 10*6/uL [facility] WBC (Bld) [#/Vol] 6.4 10*3/uL 4.8 - 10.8 K/uL Formerly Named [facility] OPERATIVE REPORTon 2 [place] [address] OPERATIVE REPORT PATIENT NAME: JORGE VELASQUEZ : 1960 MED REC NO: [id number] ROOM: ACCOUNT NO: [id number] ADMIT DATE: 09/14/2021 PROVIDER: Antonietta Robles MD [...] with interrupted 0 Ethibond sutures. I used [id number] Ethibond sutures to close the fascial defect. [...] family after the procedure. ANTONIETTA ROBLES MD NIELS/Noris_[email or web address] Doc#: [id number] CC: Normal [facility] POCT Glucoseon 09-14-2021 Glucose [Mass/Vol] 203 mg/dL Critically high 70-[address] [facility] Comment on above: Performed By: #### P GLU #### [facility] [address] [place] [address] POC Performed on ACCU-CHEK Normal [facility] Comment on above: Performed By: #### P GLU #### [facility] [address] [place] [address] Glucose [Mass/Vol] 203 mg/dL High 70 - 99 mg/dl [facility] Interpretation and review of laboratory results Abnormal [facility] Performed on ACCU-CHEK Formerly Named [facility] CT ABDOMEN PELVIS W IV CONTR Jannet [...] Some of this report was completed using [employer] voice-recognition technology and may include unintended errors [...] Lloyd Valencia MD 06/24/21 Final result Normal [facility] POCT Venouson 06-24-2021 Creatinine [Mass/Vol] 1.1 mg/dL Normal 0.8-1.3 [facility] Comment on above: Performed By: #### P EL #### [facility] [address] [place] [address] GFR >60 Normal >60 [facility] Comment on above: Result Comment: >60 mL/min/1.73m2 EGFR, calc. for ages 18 and older using the MDRD formula (not corrected for weight), is valid for stable renal function. Performed By: #### P EL #### [facility] [address] [place] [address] GFR/1.73 sq M.predicted among blacks MDRD (S/P/Bld) [Vol rate/Area] mL/min/{1.73_m2} Normal >60 [facility] Comment on above: Result Comment: >60 mL/min/1.73m2 EGFR, calc. for ages 18 and older using the MDRD formula (not corrected for weight), is valid for stable renal function. Performed By: #### P EL #### [facility] [address] [place] [address] POC Performed on SEE BELOW Normal [facility] Comment on above: Result Comment: Perf ormed on POC Performed By: #### P EL #### [facility] [address] [place] [address] POC Sample Type EL Normal [facility] Comment on above: Performed By: #### P EL #### [facility] [address] [place] [address] Clinical Summary: HMSPatient IDon 04-23-2020 OOP [facility] Work Phone: Office Visit: New - 1st visi t with practice, Rm: 3on 04-23-2020 NEGATED: Highlighted rowTobacco smoking status NHIS Tobacco smoking status [facility] Work Phone: NEGATED: Highlighted rowxray history of the back/hip on 03/29/2020 at [facility] Work Phone: XR HIP [...] normal. IMPRESSION: No acute process. See above. County Bailiff: DIONICIO Transcribe Date/Time: Mar 31 2020 8:55A Dictated by : KAITY TRUJILLO MD This examination was interpreted and the report reviewed and electronically signed by: KAITY TRUJILLO MD on Mar 31 2020 8:56AM EST Normal [facility] XR LUMBAR PARS 4V AP/LAT/OBL X2on 03-29-2020 [...] posterior hypertrophic changes at the same level. County Bailiff: PSCB Transcribe Date/Time: Mar 31 2020 9:38A Dictated by : SANDRA REGALADO MD This examination was interpreted and the report reviewed and electronically signed by: SANDRA REGALADO MD on Mar 31 2020 9:38AM EST Normal [facility] Culture, urine Bacteria identified Cx Nom (U) Positive [facility] Work Phone: Vital Signs Date Time Vital Sign Value Performing Clinician Facility 11-15-2024 14:34-0400 Body height 172.72 cm Mercedes Arellano [employer]IST[employer] Work Phone: [facility] 11-15-2024 14:34-0400 Body mass index (BMI) [Ratio] 28.1 kg/m2 Mercedes Arellano [employer]IST[employer] Work Phone: [facility] 11-15-2024 14:34-0400 Body weight 84.08 kg Mercedes Arellano [employer] PRODUCTION ASSIST[employer]C Work Phone: [facility] 11-01-2024 16:54-0400 Body height 166.88 cm Mercedes Arellano TV PRODUCTION ASSISTANT-C Work Phone: [facility] 11-01-2024 16:54-0400 Body mass index (BMI) [Ratio] 30.4 kg/m2 Mercedesrolando Arellano TV PRODUCTION ASSISTANT[employer]C Work Phone: [facility] 11-01-2024 16:54-0400 Body temperature 98.1 [degF] Mercedes Arellano TV PRODUCTION ASSISTANT[employer]C Work Phone: [facility] 11-01-2024 16:54-0400 Body weight 84.82 kg Mercedes Arellano TV PRODUCTION ASSISTANT-C Work Phone: [facility] 11-01-2024 16:54-0400 Diastolic blood pressure 60 mm[Hg] Mercedes Arellano TV PRODUCTION ASSISTANT-C Work Phone: [facility] 11-01-2024 16:54-0400 Heart rate 86 /min Mercedes Arellano TV PRODUCTION ASSISTANT-C Work Phone: [facility] 11-01-2024 16:54-0400 Respiratory rate 18 /min Mercedes Arellano TV PRODUCTION ASSISTANT-C Work Phone: [facility] 11-01-2024 16:54-0400 SaO2% (BldA) [Mass fraction] 96 % Mercedesrolando Arellano TV PRODUCTION ASSISTANT-C Work Phone: [facility] 11-01-2024 16:54-0400 Systolic blood pressure 130 mm[Hg] Mercedesrolando MccordArellano TV PRODUCTION ASSISTANT-C Work Phone: [facility] 05-10-2023 15:58-0500 Body height 1694.18 cm [facility] 05-10-2023 15:58-0500 Body mass index (BMI) [Ratio] 0.3 kg/m2 [facility] 05-10-2023 15:58-0500 Body temperature 97.7 [degF] [facility] 05-10-2023 15:58-0500 Body weight 88.45 kg [facility] 05-10-2023 15:58-0500 Diastolic blood pressure 70 mm[Hg] [facility] 05-10-2023 15:58-0500 Heart rate 82 /min [facility] 05-10-2023 15:58-0500 Respiratory rate 18 /min [facility] 05-10-2023 15:58-0500 SaO2% (BldA) [Mass fraction] 96 % [facility] 05-10-2023 15:58-0500 Systolic blood pressure 140 mm[Hg] [facility] 01-20-2022 16:07-0400 Body height 171.45 cm [facility] Work Phone: 01-20-2022 16:07-0400 Body mass index (BMI) [Ratio] 31.1 kg/m2 [facility] Work Phone: 01-20-2022 16:07-0400 Body temperature 97.7 [degF] [facility] Work Phone: 01-20-2022 16:07-0400 Body weight 91.62 kg [facility] Work Phone: 01-20-2022 16:07-0400 Diastolic blood pressure 70 mm[Hg] [facility] Work Phone: 01-20-2022 16:07-0400 Heart rate 94 /min [facility] Work Phone: 01-20-2022 16:07-0400 Respiratory rate 18 /min [facility] Work Phone: 01-20-2022 16:07-0400 SaO2% (BldA) [Mass fraction] 95 % [facility] Work Phone: 01-20-2022 16:07-0400 Systolic blood pressure 138 mm[Hg] [facility] Work Phone: 09-14-2021 13:40-0400 Diastolic blood pressure 85 mm[Hg] Antonietta Robles MD Work Phone: [facility] 09-14-2021 13:40-0400 Heart rate 78 /min Antonietta Robles MD Work Phone: [facility] 09-14-2021 13:40-0400 SaO2% (BldA) [Mass fraction] 97 % Antonietta Robles MD Work Phone: [facility] 09-14-2021 13:40-0400 Systolic blood pressure 151 mm[Hg] Antonietta Robles MD Work Phone: [facility] 09-14-2021 13:34-0400 Respiratory rate 18 /min Antonietta Robles MD Work Phone: [facility] 09-14-2021 13:00-0400 Body temperature 98.01 [degF] Antonietta Robles MD Work Phone: [facility] NEGATED: Highlighted [id number] 08:56-0500 BMI (Body Mass Index) 30.06 kg/m2 [facility] Work Phone: NEGATED: Highlighted [id number] 08:56-0500 Body weight 89.36 kg [facility] Work Phone: NEGATED: Highlighted [id number] 08:56-0500 Body weight 90 kg [facility] Work Phone: NEGATED: Highlighted [id number] 08:56-0500 Heart rate 2+ [facility] Work Phone: NEGATED: Highlighted [id number] 08:56-0500 Height 172.72 cm [facility] Work Phone: NEGATED: Highlighted [id number] 08:56-0500 Height 173 cm [facility] Work Phone: Encounters Encounter Date Encounter Type Care Provider Facility Start: 12-21-2024 ambulatory Mercedes Arellano TV PRODUCTION ASSISTANT Faci lity:[facility] Start: 11-26-2024 ambulatory Mercedes Arellano TV PRODUCTION ASSISTANT Faci lity:[facility] Start: 11-15-2024 End: 11-15-2024 Patient encounter procedure Torri SHERMAN [facility] Work Phone: Start: 11-15-2024 End: 11-15-2024 ambulatory Mercedes Arellano TV PRODUCTION ASSISTANT-C Work Phone: [facility] Work Phone: Start: 11-02-2024 End: 11-02-2024 ambulatory Mercedes Arellano TV PRODUCTION ASSISTANT-C Work Phone: [facility] Work Phone: Start: 11-02-2024 End: 11-02-2024 Patient encounter procedure Mercedes Arellano TV PRODUCTION ASSISTANT-C -Radiology [facility] Work Phone: Start: 11-02-2024 End: 11-02-2024 ambulatory Mercedes Arellano TV PRODUCTION ASSISTANT Facility:[facility] Start: 05-09-2024 End: 05-09-2024 ambulatory Mercedes Arellano TV PRODUCTION ASSISTANT Facility:[facility] Start: 03-26-2024 End: 03-26-2024 ambulatory MERCEDES ARELLANO Facility:[facility] Start: 03-20-2024 End: 03-20-2024 ambulatory Mercedes Arellano TV PRODUCTION ASSISTANT Facility:[facility] Start: 05-10-2023 End: 05-10-2023 ambulatory [facility] Work Phone: Start: 05-10-2023 End: 05-10-2023 Patient encounter procedure [facility], Specimen Work Phone: Start: 05-22-2022 End: 05-23-2022 ambulatory MERCEDES ARELLANO Facility:[facility] Start: 01-20-2022 End: 01-20-2022 ambulatory [facility] Work Phone: Start: 01-20-2022 End: 01-20-2022 Patient encounter procedure [facility] Specimen Start: 01-05-2022 End: 01-05-2022 Emergency department patient visit MERCEDES ARELLANO Facility:[facility] Start: 09-14-2021 End: 09-14-2021 ambulatory [facility] [place] Start: 09-14-2021 End: 09-14-2021 Subsequent hospital visit by physician Antonietta Robles MD Work Phone: [facility] Comment on above: Ventral hernia witho ut obstruction or gangrene (Primary Dx) Start: 06-24-2021 End: 06-27-2021 ambulatory VANDANA EMILY [facility] [place] Start: 04-23-2020 End: 04-23-2020 Patient encounter procedure Librado Patel MD Work Phone: [facility] [place] [facility] Work Phone: Start: [...] 03-27-2020 Subsequent hospital visit by physician [facility] Comment on above: Arrived Procedures Date Procedure Procedure Detail Performing Clinician Start: 11-02-2024 Complete x-ray serie s of lumbosacral spine including bending views Mercedes Arellano TV PRODUCTION ASSISTANT-C Work Phone: Start: 09-14-2021 Ecg routine ecg w/le ast [...] non-user Librado Contreras i, MD Work Phone: Urine culture NEGATED: Highlighted rowStart: 04-23-2020 End: 04-23-2020 Documentation of current medications Sharita Motley Plan of Treatment Date Care Activity Detail Author Start: 09-14-[address] [facility] Start: 09-14-2022 Potassium [Moles/volume] in Serum or Plasma Potassium [facility] Start: 01-21-2022 Influenza vaccination Flu vaccine (Season Ended) [facility] Start: 01-20-2022 Testosterone measurement [facility] Work Phone: Start: 09-14-2021 End: 09-14-2021 Repair first abdominal wall hernia HERNIA VENTRAL REPAIR VENTRAL HERNIA 09/14/2021 11:01 AM EDT [facility] Start: 05-27-2020 Shingles Vaccine (2 of 2) Shingles Vaccine (2 of 2) [facility] Start: 05-05-2020 End: 05-05-2020 Appointment 05/05/2020 Appointment Occupational Therapy Lisa Johnson OTR/[facility]elyn [facility] Start: 04-30-2020 End: 04-30-2020 Appointment 04/30/2020 Appointment Occupational [facility] [place] [facility] [facility] Start: 04-28-2020 End: 04-28-2020 Appointment 04/28/2020 Appointment Occupational [facility] Start: 04-23-2020 End: 04-23-2020 Appointment 04/23/2020 Appointment Occupational Lisa Keita OTR/[facility] Start: 04-23-2020 End: 04-23-2020 Appointment Appointment [facility] [place] [facility] Work Phone: Start: 04-21-2020 End: 04-21-2020 Appointment 04/21/2020 Appointment Occupational [facility] [place] [facility] Start: 04-16-2020 End: 04-16-2020 Appointment 04/16/2020 Appointment Occupational Lisa Keita OTR/[facility] Start: 04-14-2020 End: 04-14-2020 Appointment 04/14/2020 Appointment Occupational Lisa Keita OTR/[place] [facility] Start: 04-09-2020 End: 04-09-2020 Appointment 04/09/2020 Appointment Occupational Lisa Keita OTR/[facility] Start: 04-07-2020 End: 04-07-2020 Appointment 04/07/2020 Appointment Occupational Therapy Lisa Johnson OTR/[facility] Start: 04-02-2020 End: 04-02-2020 Appointment 04/02/2020 Appointment Occupational Therapy Lisa Johnson OTR/[facility] Start: 03-31-2020 End: 03-31-2020 Appointment [facility] Start: 01-22-2020 Influenza vaccination Flu vaccine (#1) [place], [place] Start: 11-14-2016 Creatinine measurement Creatinine monitoring [place], [place] Start: 11-14-2016 HbA1c (Bld) [Mass fraction] A1C test (Diabetic or Prediabetic) [place], [place] Start: 11-14-2016 Hemoglobin A1c measurement A1C test (Diabetic or Prediabetic) [facility] Start: 11-14-[address] [facility] Start: 11-14-2016 Potassium monitoring Potassium monitoring [place], [place] Start: 2010 Screening for malignant neoplasm of colon Colon cancer screen colonoscopy [place], [place] Start: 2010 Shingles Vaccine (1 of 2) Shingles Vaccine (1 of 2) [place], [place] Start: 2005 Screening for malignant neoplasm of colon [facility] Start: 08-04-1979 DTaP/Tdap/Td vaccine (1 - Tdap) DTaP/Tdap/Td vaccine (1 - Tdap) [facility] Start: 08-04-1979 Hepatitis B vaccine (1 of 3 - Risk 3-dose series) Hepatitis B vaccine (1 of 3 - Risk 3-dose series) [place], [place] Start: 1978 Diabetic microalbuminuria test Diabetic microalbuminuria test [place], [place] Start: 1978 Diabetic retinal exam Diabetic retinal exam [facility] Start: 1978 Hepatitis C screening Hepatitis C screen [facility] Start: 1978 Urine screening for protein Diabetic microalbuminuria test [facility] Start: 08-04-1975 HIV screening HIV screen [facility] Start: 1972 Depression Monitoring Depression Monitoring [facility] Start: 1970 Diabetic foot examination Diabetic foot exam [facility] Start: 1970 Diabetic retinal exam Diabetic retinal exam [place], [place] Start: 1966 Pneumococcal 0-64 years Vaccine (1 - PCV) Pneumococcal 0-64 years Vaccine (1 - PCV) [facility] Start: 1966 Pneumococcal 0-64 years Vaccine (1 of 1 - PPSV23) Pneumococcal 0-64 years Vaccine (1 of 1 - PPSV23) [place], [place] Start: 1960 Hepatitis C screening Hepatitis C screen [place], [place] EKG 12 Lead EKG 12 Lead ECG Routine 09/14/2021 8:06 AM EDT [facility] [employer] Phone: End: 09-14-2021 INITIATE PACU OXYGEN THERAPY PROTOCOL Initiate PACU Oxygen Therapy Protocol Respiratory Care Routine Continuous until discontinued starting 09/14/2021 [facility] [employer] Phone: Comment on above: Continuous until discontinued starting 0 09/14/2021 Oxygen therapy [[facility] Data Set] Initiate Oxygen Therapy Protocol Respiratory Care Routine Daily until discontinued starting 09/14/2021 [facility] Phone: Comment on above: Daily until discontinued starting 2021 Testosterone Free [Mass/volume] in Serum or Plasma [facility] Work Phone: Testosterone measurement [facility] Work Phone: Payers Date Payer Category Payer Self-pay [id number] [id number] 2024 Unknown [id number] 2020 Private Health Insurance [id number] 2020 Unknown GENERIC SELF-INS URED GENERIC SELF-INSURED [phone] 2020-Present [address] [place] [address] [phone] [id number] 2020 Unknown [id number] 2011 Unknown [id number] 2003 Private Health Insurance [employer]/C [facility] [id number] 1960 Unknown [id number] 1960 Unknown [id number] 82 1960 Unknown [id number] 59 Private Health Insurance [place] [id number] Unknown [id number] Unknown Unknown [id number] 62 Unknown [id number] 62 Unknown [id number] 62 Unknown [id number] 62 Unknown [id number] 62 Unknown [id number] 62 Social History Date Type Detail Facility Start: 12-24-2014 End: 11-13-2015 Tobacco smoking status LAIS Former smoker [employer] Start: 12-24-2014 End: 11-13-2015 Tobacco use and exposure [place] [place] Start: 11-13-2015 End: 09-14-2021 Alcohol intake [facility] Start: 1960 [facility] Assigned At Not on file [facility] Start: 09-14-2021 Alcohol intake Cassidy [facility] Work Phone: Start: 09-04-2021 End: 09-14-2021 Exposure to SARS-CoV-2 (event) Not sure [facility] [employer] Work Phone: Start: 10-17-2020 End: 10-17-2020 Tobacco smoking status NHIS Unknown if ever smoked [facility] Start: 1960 Sex Assigned At Male W [facility] Start: 03-19-2024 Tobacco smoking status NHIS Never smoked tobacco (finding) [facility] NEGATED: Highlighted rowStart: 04-23-2020 End: 04-23-2020 Alcohol use Alcohol use [facility] Work Phone: NEGATED: Highlighted rowStart: 04-23-2020 End: 04-23-2020 Details of drug misuse behavior Details of drug misuse behavior [facility] Work Phone: NEGATED: Highlighted rowStart: 04-23-2020 End: 04-23-2020 Employment detail Employment detail [facility] Work Phone: NEGATED: Highlighted rowStart: 04-23-2020 End: 04-23-2020 Assertion Former smoker [facility] Work Phone: Medical Equipment Procedure Code Equipment Code Equipment Origin al Text Equipment Identifier Dates Blood Sugar Diagnostic (Accu-Chek Guide Test Strips) strip Start: 03-20-2024 Lancets (Accu-Ch ek Fastclix Lancet Drum[place] [facility] [place]: 03-20-2024 Blood Sugar Diagnostic (Accu-Chek Guide Test Strips) strip Start: 03-20-2024 Lancets (Accu-Ch ek Fastclix Lancet Drum[place] [facility] [place] Start: 03-20-2024 Radiology Diagnostic study note 11-02-2024 Note Date & Type Note Facility 06-13-2025 Radiology Diagnostic study note [facility] Imaging Services [address] [place] [address] L/S Spine Comp/w Bending Views MR#: [id number] Acct: [id number] Name: JORGE VELASQUEZ Rep #: [id number] : 1960 M 64 From: Edith Lopez MD PCP: Mercedes Arellano, TV PRODUCTION ASSISTANT-C Status: REG CLI Study:L/S Spine Comp/w Bending Views Date of Exam: 11/02/24 Exam# [id number] Ordering Dr: Mercedes James NP TV PRODUCTION ASSISTANT-C PROCEDURE: L/S SPINE COMP/W BENDING VIEWS 11/02/2024 REASON FOR EXAM: LOW BACK PAIN TECHNIQUE: Five view(s) of the thoracic and lumbar spine. FINDINGS: Satisfactory curvature. Multilevel endplate degenerative change and disc disease of the lumbar spine, most significant at L2-3. No acute fracture or significant dynamic instability. Calcified atherosclerotic disease of the aorta. RAD/L/S Spine Comp/w Bending Views IMPRESSION: No acute fracture or significant dynamic instability. Reading [facility] CC: TV PRODUCTION ASSISTANT-C Mercedes Arelalno ~ County Bailiff: Signed [facility] Evaluation note 11-01-2024 Note Date & Type Note Facility 11-01-2024 Evaluation note Diagnosis Onset Date Resolution Lumbar spine strain acute November 01, 2024 4:41pm Shingles acute November 01 4:41pm [facility] Work Phone: History of Present illness Narrative 09-14-2021 Sandra Dhillon RN - 09/14/2021 1:00 PM EDT Note Date & Type Note Facility 09-14-2021 History of Present illness Narrative Abdomen soft and rounded, aquacel dressing intact, binder on, ice pack on, Patient states pain is better and tolerable at 2 on pain scale, documented in this encounter [employer] Work Phone: Evaluation note Note Date & Type Note Facility Evaluation note Diagnosis Ventral hernia without obstruction or gangrene- Primary Ventral hernia, unspecified, without mention of obstruction or gangrene documented in this encounter [email or web address] Phone: Evaluation note Note Date & Type Note Facility Evaluation note Diagnosis Onset Date Diabetes mellitus type 2, un controlled, without complications acute Erectile dysfunction acute Urine retention acute [facility] Work Phone: Evaluation note Note Date & Type Note Facility Evaluation note Diagnosis Onset Date Diabetes mellitus type 2, un controlled, without complications acute Hyperlipemia acute Hypertriglyceridemia acute Left otitis media acute Maxillary sinusitis acute Hypertension chronic [facility] Work Phone: Hospital Discharge instructions Instructions Note Date [...] incision SPECIAL INSTRUCTIONS: Call the office at [phone] if you have a fever > 100.6 F, vomiting or if your incision becomes red, tender, or drains more than a small amount of clear fluid. Remember the more active you are the more pain to expect documented in this encounter [email or web address] Phone: Reason for referral (narrative) Note Date & Type Note Facility Reason for referral (narrative) No reason for referral information available [facility] Work Phone: Reason for visit Narrative Auth/Cert Note Date & Type Note Facility Reason for visit Narrative Specialty Diagnoses / Procedures Referred By Contac t Referred To Contact Diagnoses Ventral hernia VENTRAL HERNIA Procedures LA REPAIR INCISIONAL HERNIA,REDUCIBLE REPAIR OF VENTRAL HERNIA WITH UMBILECTOMY (PAT ON ADMIT) CASE #2 Antonietta Robles MD [address] [address] [place] [address] [employer] [address] [place] [address] Referral ID Status Reason Start Date Expiration Date Visits Re quested Visits Authorized [id number] 1 1 [employer] Work Phone: History of Present Illness * Jorge Augustin, OTR/L - 03/27/2020 10:00 AM EST [] [facility]: [address] [place] [address] [] [facility]: [address] [place] [address] OCCUPATIONAL THERAPY EVALUATION Evaluation Date: 03/27/2020 OT Eval low complexity 50 minutes for 1 unit, CPT 80679 Patient Name:Jorge Velasquez Gender: male Date of [...] Liftin lbs of any material or objects East Timorese primary language: No Transfer of pt care required: yes, Transfer care to lead OTR SUBJECTIVE FINDINGS Support contact: Alicia Patel Pt lives: spouse Home: two level with [...] and IADL activities. 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 Pt reports the greatest amount required to lift is approximately 30# Pt has work restrictions. Current work restriction is lifting no more than 5# Is this a work related injury: yes Is this a [facility] claim: yes [id number] Driving:yes Hobbies, Leisure, social activities: Fishing and [...] that he wakes up with his arms Asleep. Pt reports episodes of that are subsiding. [...] 7 Metacarpal Phalangeal 8 1/2 8 3/4 [employer] Supervisor & Pinch Strength Average of 3 tries Right Norm Left Norm [employer] Supervisor (lb) 111 Male age 55-59: 94 lbs [...] strength [] Decreased UE ROM [] Decreased dental hygiene professor strength [x] Decreased fine motor skills [] [...] safecompletion of work related tasks as projected. JAJA Conner/Roselyn 03/27/2020 9:40 AM Falls Risk Assessment Age: [...] 2 *Patient 4 or younger: Vestibular: Signature: JAJA Conner/Roselyn High Risk for Falls: >8 Intermediate Risk [...] Date documented in this encounter* Lisa Johnson OTR/Roselyn - 03/31/2020 10:00 AM EST Occupational Therapy Daily Note Name: Jorge Velasquez : 1960 Diagnosis: B ulnar nerve lesion Visit Information: Onset Date: 01/31/20 OT Insurance Information: [employer] Total # of Visits Approved: 12 Progress Note Counter: 2 Date: 03/31/2020 Time: OT Manual therapy 11 minutes for 1 unit(s), CPT 37048 9:26-9:37 am OT Splint/orthosis fit and training 10 minutes for 1 unit(s), CPT 03699 9:37- 9:47 am OT Therapeutic activities 38 minutes for 2 unit(s), CPT 164283 9:06-9:26 am; 9:47-10:05 am OT Individual Minutes [...] of splint and HEP. Plan: Continue POC MILTON Pelayo 03/31/2020 11:57 AM documented in this encounter* Lisa Johnson OTR/L - 04/02/2020 9:00 AM EST Occupational Therapy Daily Note Name: Jorge Velasquez : 1960 Visit Information: Dr. Devante BARAHONA ulnar nerve lesion Onset: 01/31/20 Visits Approved: 12 Visit counter: 3 Date: 04/02/2020 Time: OT Manual therapy 33 minutes for 2 unit(s), CPT 90838 OT Therapeutic activities 23 minutes for 2 unit(s), CPT 01591 OT Individual Minutes Time In: 902 Time [...] splint use and HEP. Plan: Continue POC MILTON Pelayo 04/02/2020 11:21 AM documented in this encounter* Lisa Johnson OTR/L - 04/07/2020 9:00 AM EST Occupational Therapy Daily Note Name: Jorge Velasquez : 1960 Diagnosis: B ulnar nerve lesion Visit Information: Onset Date: 01/31/20 OT Insurance Information: [employer] Total # of Visits Approved: 12 Progress Note Counter: 4 Date: 04/07/2020 Time: OT Manual therapy 28 minutes for 2 unit(s), CPT 55348 OT Therapeutic activities 30 minutes for 2 unit(s), CPT 83455 OT Individual Minutes Time In: 0902 Time Out: 1000 Minutes: 58 Referring Practitioner: [...] with physician regarding continued sensory issues. JAJA Pelayo/Roselyn 04/07/2020 2:28 PM documented in this encounter* Lisa Johnson OTR/L - 04/14/2020 9:00 AM EST Occupational Therapy Daily Note Name: Jorge Velasquez : 1960 Diagnosis: B ulnar nerve lesion Visit Information: Onset Date: 01/31/20 OT Insurance Information: [employer] Total # of Visits Approved: 12 Canceled Appointment: 1 Progress Note Counter: 5 Date: 04/14/2020 Time: OT Therapeutic activities 60 minutes for 4 unit(s), CPT 12737 OT Individual Minutes Time In: 0900 Time [...] forearm stretches with UEs supported on medium ivorian therapy ball. Pt. requires cuesfor spinal alignment [...] techniques for safe completion of work tasks. JAJA Pelayo/Roselyn 04/14/2020 10:18 AM documented in this encounterThere may be information available, but it has not been provided by the sender.* Lisa Johnson OTR/Roselyn - 04/09/2020 9:00 AM EST Therapy Cancellation/No-show [...] FoundDocuments on File Type Date Recorded Patient Narrow Gauge Brakeman Expl anation ACP-Advance Directive ACP-Power of Master Of Ceremonies Documents on File Type Date Recorded Patient Narrow Gauge Brakeman Expl anation ACP-Advance Directive ACP-Power of Master Of Ceremonies Latest Code Status on File Code Status Date Activated Date Inactivated Comments Full Code 09/14/2021 1:07 PM Summary Purpose Family History No Family History Records Found Relationship Condition Age at Onset Recorded Date/T [place] Not Specified Malignant neoplasm of colon Unknown Diabetes mellitus Unknown Malignant neoplasm of urinary bladder Unk nown Malignant neoplasm of breast Unknown Malignant neoplasm of lung Unknown Malignant neoplasm Unknown Hypertension Unknown Relationship Condition Age at Onset Recorded Date/T [place] Not Specified Malignant neoplasm of colon Unknown Diabetes mellitus Unknown Malignant neoplasm of urinary bladder Unk nown Malignant neoplasm of breast Unknown Malignant neoplasm of lung Unknown Malignant neoplasm Unknown Hypertension Unknown brother Aneurysm Unknown Chief Complaint Chief Complaint Description Start Date [...] has not been provided by the sender. Chief Complaint and Reason for Visit Chief Complaint Urinary retention & Pain lower ABD Reason for Visit Diabetes mellitus ty pe 2, uncontrolled, without complications Erectile dysfunction Urine retention Chief Complaint medication refills Reason for Visit Diabetes mellitus ty pe 2, uncontrolled, without complications Hyperlipemia Hypertriglyceridemia Left otitis media Maxillary sinusitis Hypertension Chief Complaint Admit Date Lump under arm/Lower back pain October 4:41pm E ORDER November 02, 2024 1:29 pm Reason for Visit Admit Date Lumbar spine strain November 01, 2024 4:41 pm Shingles November 01, 2024 4:41 pm Chief Complaint Admit Date Lump under arm/Lower back pain October 4:41pm E ORDER November 02, 2024 1:29 pm LUMBAR SPINE November 15, 2024 1:45 pm Additional Source Comments (unrecognized sect ion and content) No Status Records FoundNo Status Records FoundNo Status Records FoundNo Status Records FoundNo Status Records Found INFORMATION SOURCE (unrecogn ized section and content) DATE CREATED AUTHOR 03/31/2020 [facility] DATE CREATED AUTHOR AUTHOR'S ORGANIZ ATION 09/15/2021 [facility] DATE CREATED AUTHOR AUTHOR'S ORGANIZ ATION 06/03/2022 [facility] DATE CREATED AUTHOR AUTHOR'S ORGANIZ ATION 03/27/2024 [facility] DATE CREATED AUTHOR AUTHOR'S ORGANIZ ATION 12/28/2024 [facility] Reason for Visit (unrecogniz ed section and [...] 100 mL IVPB (COMPLETED) 2,000 mg, IntraVENous, SUPERVISOR GLUING TO O.R., 1 dose, On Tue09/14/21 at 0700, Antimicrobial Indications: Surgical Prophylaxis, Pre-op [...] more than 5 days., 30 mg, IntraVENous, SUPERVISOR GLUING TO O.R., 1 dose, On Tue09/14/21 at [...] Care Teams (unrecognized sec tion and content) Blueprint Developer Relationship Specialty Start Date End Date Mercedes Arellano [address] [place] [address] PCP - General Nurse Practitioner 03/25/20 Team Status: Active Member Role Status Dates Dr. Florian Vivas MD Family Provider Active Team Status: Inactive Member Role Status Dates Mercedes Arellano NP, NP-C Attending Provider Active Team Status: Active Member Role Status Dates Dr. Florian Vivas MD Family Provider Active Mercedes Arellano NP, NP-C Primary Care Provider Active Team Status: Inactive Member Role Status Dates Mercedes Arellano NP, NP-C Attending Provider Active Start: November 01, 2024 End: November 01, 2024 Team Status: Inactive Member Role Status Dates Mercedes Arellano NP, NP-C Primary Care Provider Active Start: November 02, 2024 End: November 02, 2024 Mercedes Arellano NP, NP-Jamison Attending Provider Active Start: November 02, 2024 End: November 02, 2024 Mercedes Arellano NP, NP-Jamison Referring Provider Active Start: November 02, 2024 End: November 02, 2024 Team Status: Inactive Member Role Status Dates Mercedes Arellano NP, NP-C Primary Care Provider Active Start: November 15, 2024 End: November 15, 2024 Mercedes Arellano NP, TV PRODUCTION ASSISTANT-C Referring Provider Active Start: November 15, 2024 End: November 15, 20[address] Attending Provider Active Star t: November 15, 2024 End: November 15, 2024 Goals (unrecognized section and content) Goals may be documented in a n alternate sectionGoals may be documented in an alternate sectionGoals may be documented in an alternate sectionGoals may be documented in an alternate section FOR RECORDS PERTAINING TO PATIENTS WHO ARE [...] BE BASED ON THE PRIMARY CLINICAL RECORDS. [facility]. provides no warranty or guarantee of the accuracy or completeness of information in this document.
[2025-05-09 21:35] LABS: Hematocrit 44.8 % (40-54); Hemoglobin 15.2 g/dL (13.0-16.5); Immature Granulocytes Count 0.080 X10^3/uL (0.0-0.0); Mean Corp Hgb Conc 33.9 g/dL (32-36); Mean Corpuscular Volume 86.3 fL (80-94); Mean Platelet Vol. 9.6 fl (6.2-12.0); NRBC Flagged by Analyzer 0 % (0-5); Platelet Count 255 K/mm3 (150-450); RBC Distribution Width CV 13.2 % (11.6-14.6); RBC Distribution Width SD 40.9 fl (35.1-43.9); Red Blood Count 5.19 M/mm3 (4.6-6.2); White Blood Count 10.2 K/mm3 (4.4-11.0)
[2025-05-09 22:13] LABS: AST(SGOT) 25 U/L (<=37); Alanine Aminotransfer ALT/SGPT 39 U/L (<=46); Albumin, Serum 4.7 g/dL (3.4-4.8); Alkaline Phosphatase 95 U/L (40-129); Anion Gap 13 (5-15); BUN 18 mg/dL (4-19); BUN/Creat Ratio 13.2 RATIO (10-20); Calcium,Total 9.8 mg/dL (7.6-11.0); Carbon Dioxide 23.1 mmol/L (21.0-32.0); Chloride 101 mmol/L (98-108); Cholesterol 199 mg/dL (<=200); Globulin 2.8 g/dL (2.2-4.2); Glucose 113 mg/dL (70-99); Low Density Lipoprotein Calc. 110 mg/dL; PSA,Total - Annual Screen 3.17 ng/mL (0.02-4.00); Potassium 4.4 mmol/L (3.3-5.1); Triglycerides 210 mg/dL; Very Low Density Lipoprotein 42 mg/dL (5-40); cholesterol:hdl ratio screen 3.76
== END | disposition home or self-care (01) ==
PROVIDERS: PCP Nurse Practitioner; Referring Provider Nurse Practitioner; Visit Provider Nurse Practitioner
DX: Z00.00 Encounter for general adult medical examination without abnormal findings (principal)
CPT/HCPCS: 80053; 80061; 84153; 85025; G0103